=== PATIENT | male | born 1965 | race Caucasian/White ===

== ENCOUNTER → 2020-03-01 15:37 | Outpatient (BNVA) | payer OTHER, SELFPAY | PROVIDERS: PCP Physician Assistant; Visit Provider Internal Medicine Cardiovascular Disease | DX: I42.1 Obstructive hypertrophic cardiomyopathy (principal); Z98.61 Coronary angioplasty status | CPT/HCPCS: 93005; 99212 ==

== ENCOUNTER → 2020-08-04 15:00 | Outpatient (BNVA) | payer OTHER, SELFPAY | PROVIDERS: PCP Physician Assistant; Referring Provider Physician Assistant; Visit Provider Internal Medicine Cardiovascular Disease | DX: I42.1 Obstructive hypertrophic cardiomyopathy (principal); E78.5 Hyperlipidemia, unspecified; Z98.61 Coronary angioplasty status | CPT/HCPCS: 99212 ==

== ENCOUNTER 2020-08-09 14:56 | Outpatient (REF) | payer OTHER, SELFPAY ==
--- NOTE | ~2020-08-09 | XR_ITS ---
EXAMINATION: XR TIBIA AND FIBULA, LEFT CLINICAL INFORMATION: Injury. COMPARISON: None TECHNIQUE: AP and lateral views of the left tibia and fibula were obtained. FINDINGS: The bones and soft tissues are normal. No fracture. No osseous lesions. XR/XR tibia fibula LT 2V IMPRESSION: Normal left tibia and fibula.
--- NOTE | ~2020-08-09 | XR_ITS ---
EXAMINATION: XR ANKLE, LEFT CLINICAL INFORMATION: Injury. COMPARISON: None TECHNIQUE: AP, lateral, and mortise views of the left ankle. FINDINGS: The bones and soft tissues are normal. No fracture. Alignment is anatomic. Joint spaces are maintained. No joint effusion. XR/XR ankle LT min 3V IMPRESSION: Normal left ankle.
== END 2020-08-09 14:57 | disposition home or self-care (01) ==
LOC: HO.HMGCX 14:56
PROVIDERS: PCP Physician Assistant; Visit Provider Nurse Practitioner Family
DX: S89.92XA Unspecified injury of left lower leg, initial encounter (principal)
CPT/HCPCS: 73590; 73610

== ENCOUNTER → 2021-02-02 14:00 | Outpatient (BNVA) | payer OTHER, SELFPAY | PROVIDERS: PCP Physician Assistant; Referring Provider Physician Assistant; Visit Provider Internal Medicine Cardiovascular Disease | DX: I42.1 Obstructive hypertrophic cardiomyopathy (principal); E78.5 Hyperlipidemia, unspecified; Z98.61 Coronary angioplasty status | CPT/HCPCS: 99212 ==

== ENCOUNTER 2021-03-10 15:48 | Outpatient (REF) | payer OTHER, SELFPAY ==
[2021-03-10 16:35] LABS: Hematocrit 41.9 % (42.0-52.0); Hemoglobin 14.1 g/dl (14.0-18.0); Mean Corpuscular HGB Conc 33.7 g/dl (31.0-36.0); Mean Corpuscular Hemoglobin 31.1 pg (27.0-33.0); Mean Corpuscular Volume 92.3 fL (80.0-98.0); Mean Platelet Volume 9.3 fL (9.4-12.4); Platelet Count 156 X10*3/uL (160-400); Red Blood Count 4.54 X10*6/uL (4.60-5.80); Red Cell Distribution Width 12.7 % (11.0-16.0); White Blood Count 6.2 X10*3/uL (4.8-10.8)
[2021-03-10 16:45] LABS: Estimated Average Glucose 88 mg/dL; Hemoglobin A1c % 4.7 %
[2021-03-10 16:50] LABS: Creatinine Urine 67.23 mg/dL; Microalbumin Urine < 5.0 mg/L
[2021-03-10 17:01] LABS: Alanine Aminotransferase 25 U/L (0-40); Albumin Level 4.6 g/dL (3.5-5.0); Alkaline Phosphatase 50 U/L (39-117); Anion Gap 11 (12-20); Aspartate Amino Transferase 26 U/L (5-37); Bilirubin Total 0.6 mg/dL (0.0-1.0); Blood Urea Nitrogen 21 mg/dL (9-16); Calcium 9.9 mg/dL (8.4-10.2); Carbon Dioxide 22 mmol/L (22-29); Chloride 112 mmol/L (96-108); Estimated Glomerular Filt Rate 53; Glucose Fasting 83 mg/dL (60-99); Potassium 4.2 mmol/L (3.3-5.1); Sodium 141 mmol/L (135-145)
== END 2021-03-10 15:49 | disposition home or self-care (01) ==
LOC: HO.LAB 15:48
PROVIDERS: Absent Provider Physician Assistant; PCP Physician Assistant; Visit Provider Internal Medicine Cardiovascular Disease
DX: I25.810 Atherosclerosis of coronary artery bypass graft(s) without angina pectoris (principal); N18.30 Chronic kidney disease, stage 3 unspecified
CPT/HCPCS: 36415; 80053; 82043; 83036; 85027

== ENCOUNTER 2021-04-17 15:18 | Emergency (ER) | payer OTHER, SELFPAY ==
[2021-04-17 15:56] VITALS: BP 143/80; PULSE 67; RESP 18; TEMP 36.6; O2SAT 95; BMI 32.4
--- NOTE | 2021-04-17 16:04 | ED.EPISTAXIS ---
History of Present Illness General Chief Complaint: Epistaxis Stated Complaint: nose bleed Time Seen by Provider: 04/17/21 16:04 Source: patient Mode of arrival: ambulatory Limitations: no limitations History of Present Illness HPI Narrative: Patent little congested for last few days on Plavix blew his nose started bleeding from right nostril with blood clot no prior history of epistaxis no frequent bruising or bleeding from either place had slight bright red blood in the stool with history of hemorrhoid no dizziness no chest pain or palpitation Related Data Home Medications Medication Instructions Recorded Confirmed buspirone 15 mg tablet 15 mg PO BEDTIME 03/01/20 03/10/21 lamotrigine 200 mg tablet 400 mg PO BEDTIME 03/01/20 03/10/21 quetiapine 300 mg tablet,extended 600 mg PO BEDTIME 03/01/20 03/10/21 release 24 hr topiramate 100 mg tablet 100 mg PO BEDTIME 03/01/20 03/10/21 aspirin 81 mg tablet,delayed 81 mg PO DAILY 03/02/20 03/10/21 release (Adult Aspirin Regimen) quetiapine 150 mg tablet,extended 150 mg PO BEDTIME 02/02/21 03/10/21 release 24 hr (Seroquel XR) benztropine 1 mg tablet 2 mg PO BEDTIME 04/17/21 Previous Rx's Medication Instructions Recorded clopidogrel 75 mg tablet 75 mg PO DAILY 90 Days #90 tab 07/20/20 levothyroxine 25 mcg tablet 25 mcg PO DAILY #30 tab 08/28/20 fexofenadine 180 mg tablet 180 mg PO DAILY 90 Days #90 tab 11/28/20 metoprolol succinate 25 mg 25 mg PO DAILY #90 tab 12/10/20 tablet,extended release 24 hr triamcinolone acetonide 0.1 % 1 appl TOPICAL DAILY 30 Days #30 g 12/24/20 topical cream albuterol sulfate 90 mcg/actuation 1 puff INHALATION Q6-8H 30 Days 01/06/21 aerosol inhaler #8.5 g polyethylene glycol 3350 17 gram 17 g PO DAILY PRN #30 packet 01/06/21 oral powder packet fenofibrate nanocrystallized 48 mg 48 mg PO DAILY #30 tab 02/07/21 tablet terazosin 2 mg capsule 2 mg PO DAILY #30 cap 02/07/21 meclizine 25 mg tablet 25 mg PO DAILY PRN #90 tab 02/10/21 benzoyl peroxide 10 % topical 1 appl TOPICAL DAILY 30 Days #237 g 03/10/21 cleanser clindamycin phosphate 1 % topical 1 appl TOPICAL DAILY 30 Days #75 ml 03/22/21 gel, once daily atorvastatin 80 mg tablet 80 mg PO DAILY #90 tab 03/29/21 Allergies Allergy/AdvReac Type Severity Reaction Status Date / Time neff [CHERRIES] Allergy Unknown digestive Verified 04/17/21 15:56 issues (only with fresh) gluten [GLUTEN] Allergy Unknown digestive Verified 04/17/21 15:56 issues ibuprofen [From MOTRIN] Allergy Unknown UNKNOWN Verified 04/17/21 15:56 mayonnaise [MAYONNAISE] Allergy Unknown digestive Verified 04/17/21 15:56 issues Penicillins [PENICILLINS] Allergy Unknown UNKNOWN Verified 04/17/21 15:56 rosuvastatin [Crestor] Allergy Unknown unknown Verified 04/17/21 15:56 soy [SOY] Allergy Unknown digestive Verified 04/17/21 15:56 issue Sulfa (Sulfonamide Allergy Unknown unknown Verified 04/17/21 15:56 Antibiotics) [SULFA (SULFONAMIDE ANTIBIOTICS)] wheat [WHEAT] Allergy Unknown digestive Verified 04/17/21 15:56 issues lamotrigine [LAMOTRIGINE] AdvReac Intermediate HEADACHES Verified 04/17/21 15:56 oxycodone [OXYCODONE] AdvReac Intermediate racing Verified 04/17/21 15:56 thoughts APPLE JUICE Allergy Unknown digestive Uncoded 03/10/21 15:15 issues fresh sridevi cherries Allergy Unknown unknown Uncoded 03/10/21 15:15 Review of Systems Review of Systems: Yes all other systems are reviewed and are negative PMFSH Past Medical History Medical History Chronic kidney disease Ischemic colitis Surgical History History of appendectomy History of cholecystectomy History of heart artery stent History of tonsillectomy Family History Family History Father Liver cancer Monoallelic mutation of MET gene Mother Arthritis Cancer Pacemaker Social History Social History Housing: House Patient Tobacco Use Status: Current everyday Tobacco user Cigarette Packs Per Day: 1 Cigarettes Per Day: 20 Years Smoked: 12 years Use of substances other than those prescribed or required for medical reasons: No Substance Use Type: Marijuana Substance Use Type Other:: medical marijuana Advance Directives: No Advance Directives Information Provided: No Physical Exam Vital Signs: Vital Signs: Last Vital Signs Temp 97.9 F 04/17/21 15:56 Pulse 66 04/17/21 16:40 Resp 16 04/17/21 16:40 BP 142/93 H 04/17/21 16:40 Pulse Ox 96 04/17/21 16:40 BMI result Body Mass Index 32.4 Const: General: comfortable and no acute distress Orientation/consciousness: patient oriented x3 HENMT: Head: Yes normal to inspection General nose exam: Normal nares present (Active anterior nasal bleeding from right side) Mouth: Normal oral and palatal mucosa present Throat: Yes posterior oropharynx normal Resp: Effort & Inspection: normal respiratory effort Auscultation: clear to auscultation bilaterally Cardio: Rate: regular rate Rhythm: regular rhythm Heart sounds: S1 normal heart sound present and S2 normal heart sound present GI: Inspection: Yes normal to inspection Palpation (GI): Soft to palpation and nontender Neuro: General: patient oriented x3 Procedures Epistaxis Control Time Out Performed: Yes Nostril: Yes right Nose prepped with: Yes cocaine 4% Direct inspection: Yes anterior source identified Direct inspection method: Yes otoscope Clots removed by: Yes blowing nose Epistaxis treatment: Yes silver nitrate cautery Results of treatment: Yes bleeding controlled Complications: Yes none Discharge Plan Discharge Clinical Impression: Acute anterior epistaxis Patient Disposition: Home, Self-Care Instructions: Nosebleed (ED) Additional Instructions: Local care as advised Refer to the ER if recurrence of increased bleeding Prescriptions: No Action clopidogrel 75 mg tablet 75 mg PO DAILY 90 Days Qty: 90 1RF levothyroxine 25 mcg tablet 25 mcg PO DAILY Qty: 30 3RF fexofenadine 180 mg tablet 180 mg PO DAILY 90 Days Qty: 90 2RF metoprolol succinate 25 mg tablet extended release 24 hr 25 mg PO DAILY Qty: 90 3RF triamcinolone acetonide 0.1 % cream 1 appl topical DAILY 30 Days Qty: 30 0RF albuterol sulfate 90 mcg/actuation HFA aerosol inhaler 1 puff inhalation Q6-8H 30 Days Qty: 8.5 3RF polyethylene glycol 3350 17 gram powder in packet 17 g PO DAILY PRN (Reason: for constipation) Qty: 30 2RF fenofibrate nanocrystallized 48 mg tablet 48 mg PO DAILY Qty: 30 3RF terazosin 2 mg capsule 2 mg PO DAILY Qty: 30 3RF meclizine 25 mg tablet 25 mg PO DAILY PRN (Reason: for dizziness) Qty: 90 3RF clindamycin phosphate 1 % gel, once daily 1 appl topical DAILY 30 Days Qty: 75 0RF atorvastatin 80 mg tablet 80 mg PO DAILY Qty: 90 2RF benztropine 1 mg tablet 2 mg PO BEDTIME 0RF benzoyl peroxide 10 % cleanser 1 appl topical DAILY 30 Days Qty: 237 1RF quetiapine 300 mg tablet extended release 24 hr 600 mg PO BEDTIME 0RF topiramate 100 mg tablet 100 mg PO BEDTIME 0RF lamotrigine 200 mg tablet 400 mg PO BEDTIME 0RF buspirone 15 mg tablet 15 mg PO BEDTIME 0RF aspirin [Adult Aspirin Regimen] 81 mg tablet,delayed release (DR/EC) 81 mg PO DAILY 0RF quetiapine [Seroquel XR] 150 mg tablet extended release 24 hr 150 mg PO BEDTIME 0RF Interventions: ED Discharge Assessment Last Done: 04/17/21 17:57 Discharge Date/Time: 04/17/21 17:57
[2021-04-17] MEDS: Cocaine HCl 4 % 4 ML SOLUTION 2 ML TOPICAL ×2 (16:20→17:07)
[2021-04-17 16:40] VITALS: BP 142/93; PULSE 66; RESP 16; O2SAT 96
[2021-04-17] MEDS: Silver Nitrate Applicator STICK..EA. 1 APPL TOPICAL (17:05)
== END 2021-04-17 17:57 | disposition home or self-care (01) ==
PROVIDERS: Emergency Provider Internal Medicine; PCP Physician Assistant
DX: R04.0 Epistaxis (principal); F17.210 Nicotine dependence, cigarettes, uncomplicated; Z71.6 Tobacco abuse counseling; Z79.899 Other long term (current) drug therapy
CPT/HCPCS: 30901; 99284; C9046

== ENCOUNTER 2021-04-25 21:32 | Inpatient (IN) | payer OTHER, SELFPAY ==
--- NOTE | ~2021-04-25 | XR_ITS ---
EXAMINATION: XR CHEST CLINICAL INFORMATION: Chest pain COMPARISON: Chest and RIBS 08/05/2019 and chest radiograph 03/18/2018 TECHNIQUE: Frontal view of the chest was obtained. FINDINGS: No significant abnormality is noted involving the heart, lungs, mediastinum, bony thorax or soft tissues. XR/XR chest 1V IMPRESSION: Unremarkable examination.
[2021-04-25 21:47] VITALS: BP 118/66; PULSE 71; RESP 18; TEMP 36.6; O2SAT 97; BMI 28.4
--- NOTE | 2021-04-25 21:55 | ECG_ITS ---
Test Reason : CHEST PAIN Blood Pressure : / mmHG Vent. Rate : 073 BPM Atrial Rate : 073 BPM P-R Int : 206 ms QRS Dur : 112 ms QT Int : 426 ms P-R-T Axes : 022 042 158 degrees QTc Int : 469 ms Normal sinus rhythm ST & T wave abnormality, consider inferior ischemia ST & T wave abnormality, consider anterolateral ischemia Prolonged QT Abnormal ECG When compared with ECG of 04-JUN-2018 08:09, No significant changes seen Referred By: Sruthi Flores Electronically Signed By:DEANDRA NAIK MD
--- NOTE | 2021-04-25 22:14 | ED_ITS ---
HPI - Chest Pain General Chief Complaint: Chest Pain Stated Complaint: CP,L ARM PAIN X'S 2 HOURS Time Seen by Provider: 04/25/21 21:55 Source: patient Mode of arrival: EMS History of Present Illness HPI narrative: 55-year-old male with history CAD presents with onset pinching sharp chest pain that began approximately 18 30 that he describes as 10/10 with radiation into the left arm, he states he took aspirin that time and denies any associated shortness of breath, dizziness, headache, nausea but states he was diaphoretic. He states that the pain has now settled to a ?dull ache? and that his left arm is feeling numb. The symptoms started while patient was at rest and patient still rates his pain as an 8/10. Related Data Home Medications Medication Instructions Recorded Confirmed buspirone 15 mg tablet 15 mg PO BEDTIME 03/01/20 03/10/21 lamotrigine 200 mg tablet 400 mg PO BEDTIME 03/01/20 03/10/21 quetiapine 300 mg tablet,extended 600 mg PO BEDTIME 03/01/20 03/10/21 release 24 hr topiramate 100 mg tablet 100 mg PO BEDTIME 03/01/20 03/10/21 aspirin 81 mg tablet,delayed 81 mg PO DAILY 03/02/20 03/10/21 release (Adult Aspirin Regimen) quetiapine 150 mg tablet,extended 150 mg PO BEDTIME 02/02/21 03/10/21 release 24 hr (Seroquel XR) benztropine 1 mg tablet 2 mg PO BEDTIME 04/17/21 Previous Rx's Medication Instructions Recorded fexofenadine 180 mg tablet 180 mg PO DAILY 90 Days #90 tab 11/28/20 metoprolol succinate 25 mg 25 mg PO DAILY #90 tab 12/10/20 tablet,extended release 24 hr triamcinolone acetonide 0.1 % 1 appl TOPICAL DAILY 30 Days #30 g 12/24/20 topical cream albuterol sulfate 90 mcg/actuation 1 puff INHALATION Q6-8H 30 Days 01/06/21 aerosol inhaler #8.5 g polyethylene glycol 3350 17 gram 17 g PO DAILY PRN #30 packet 01/06/21 oral powder packet meclizine 25 mg tablet 25 mg PO DAILY PRN #90 tab 02/10/21 benzoyl peroxide 10 % topical 1 appl TOPICAL DAILY 30 Days #237 g 03/10/21 cleanser clindamycin phosphate 1 % topical 1 appl TOPICAL DAILY 30 Days #75 ml 03/22/21 gel, once daily atorvastatin 80 mg tablet 80 mg PO DAILY #90 tab 03/29/21 clopidogrel 75 mg tablet 75 mg PO DAILY 90 Days #90 tab 04/18/21 fenofibrate nanocrystallized 48 mg 48 mg PO DAILY #30 tab 04/25/21 tablet levothyroxine 25 mcg tablet 25 mcg PO DAILY #30 tab 04/25/21 terazosin 2 mg capsule 2 mg PO DAILY #30 cap 04/25/21 Allergies Allergy/AdvReac Type Severity Reaction Status Date / Time neff [CHERRIES] Allergy Unknown digestive Verified 04/17/21 15:56 issues (only with fresh) gluten [GLUTEN] Allergy Unknown digestive Verified 04/17/21 15:56 issues ibuprofen [From MOTRIN] Allergy Unknown UNKNOWN Verified 04/17/21 15:56 mayonnaise [MAYONNAISE] Allergy Unknown digestive Verified 04/17/21 15:56 issues Penicillins [PENICILLINS] Allergy Unknown UNKNOWN Verified 04/17/21 15:56 rosuvastatin [Crestor] Allergy Unknown unknown Verified 04/17/21 15:56 soy [SOY] Allergy Unknown digestive Verified 04/17/21 15:56 issue Sulfa (Sulfonamide Allergy Unknown unknown Verified 04/17/21 15:56 Antibiotics) [SULFA (SULFONAMIDE ANTIBIOTICS)] wheat [WHEAT] Allergy Unknown digestive Verified 04/17/21 15:56 issues lamotrigine [LAMOTRIGINE] AdvReac Intermediate HEADACHES Verified 04/17/21 15:56 oxycodone [OXYCODONE] AdvReac Intermediate racing Verified 04/17/21 15:56 thoughts APPLE JUICE Allergy Unknown digestive Uncoded 03/10/21 15:15 issues fresh sridevi cherries Allergy Unknown unknown Uncoded 03/10/21 15:15 Review of Systems Review of Systems: Pertinent positives and negatives as stated in HPI 10 point review of systems is otherwise negative. [facility] Past Medical History Source: nursing notes reviewed Medical History Chronic kidney disease Ischemic colitis Surgical History History of appendectomy History of cholecystectomy History of heart artery stent History of tonsillectomy Family History Family History Father Liver cancer Monoallelic mutation of MET gene Mother Arthritis Cancer Pacemaker Social History Social History Housing: House Patient Tobacco Use Status: Current everyday Tobacco user Cigarette Packs Per Day: 1 Cigarettes Per Day: 20 Years Smoked: 12 years Substance Use Type: Marijuana Advance Directives: No Advance Directives Information Provided: No Physical Exam Vital Signs: Vital Signs: Last Vital Signs Temp 97.9 F 04/25/21 21:47 Pulse 18 L 04/25/21 22:29 Resp 18 04/25/21 21:47 BP 120/68 04/25/21 22:29 Pulse Ox 97 04/25/21 21:47 BMI result Body Mass Index 28.4 VITAL SIGNS: Reviewed. GENERAL: Well developed, well nourished, in no acute distress. HEAD: Normocephalic/atraumatic EYES: PERRLA, EOMI OROPHARYNX: no oral lesions noted, posterior pharynx clear LUNGS: Normal breath sounds. No adventitious sounds or accessory muscle use. SpO2<97> CARDIOVASCULAR: Regular rate and rhythm without noted murmurs, no JVD or lower extremity edema, symmetrical pulses in upper and lower extremity ABDOMEN: Soft, non-tender, non-distended with bowel sounds. MUSCULOSKELETAL: No tenderness, deformities, or effusions noted on gross inspection. EXTREMITIES: No cyanosis, clubbing or edema. SKIN: Inspection of the skin reveals no rashes NEUROLOGIC: Alert and oriented x 4. Strength and sensation to light touch were grossly intact x 4. Course Course Course Narrative: 55-year-old male with history and clinical presentation of stent placement on D AP now presenting with left-sided chest pain concerning for ACS, but on quick review of EKGs there are no acute changes as the T-wave inversions noted in the lateral leads appear to be chronic. Will give patient nitro and otherwise continue with cardiac workup. Review of all investigations and re-evaluation after patient given sublingual nitro consistent with ACS/NSTEMI and patient reports improvement after the sublingual nitro and was noted to be resting comfortably on the gurney. He is otherwise hemodynamically stable and will be started on heparin, discussed this case with the inpatient hospitalist who accepts admission and callback from Cardiology pending MDM - Chest Pain Lab Data Result diagrams: 04/25/21 22:42 04/25/21 22:42 Labs: Lab Results 04/25/21 04/25/21 04/25/21 Range/Units 22:42 22:42 22:42 WBC 8.0 (4.8-10.8) X10*3/uL RBC 3.98 L (4.60-5.80) X10*6/uL Hgb 12.4 L (14.0-18.0) g/dl Hct 36.3 L (42.0-52.0) % MCV 91.2 (80.0-98.0) fL MCH 31.2 (27.0-33.0) pg MCHC 34.2 (31.0-36.0) g/dl RDW 12.4 (11.0-16.0) % Plt Count 173 (160-400) X10*3/uL MPV 8.9 L (9.4-12.4) fL Immature Gran % (Auto) 0.5 H (0.0-0.4) % Neut % (Auto) 52.4 (45-73) % Lymph % (Auto) 27.9 (20-40) % [place] % (Auto) 10.2 (2-11) % Eos % (Auto) 8.5 H (0-4) % Baso % (Auto) 0.5 (0-2) % Lymph # (Auto) 2.2 (1.2-4.9) X10*3/uL [place] # (Auto) 0.8 (0.1-1.2) X10*3/uL Eos # (Auto) 0.7 H (0.0-0.4) X10*3/uL Baso # (Auto) 0.0 (0.0-0.2) X10*3/uL Abs Immat Gran (auto) 0.04 H (0.00-0.03) X10*3/uL Absolute Neuts (auto) 4.2 (2.0-8.3) x10*3/uL Absolute Nucleated RBC 0.000 (0.0-0.012) X10*3/uL Nucleated RBC % (auto) 0.0 (0.0-0.2) /100WBC PT 11.2 (9.9-13.0) SEC INR 1.0 (0.9-1.1) APTT 34.2 (24.1-38.0) SEC Sodium 143 (135-145) mmol/L Potassium 3.9 (3.3-5.1) mmol/L Chloride 112 H (96-108) mmol/L Carbon Dioxide 23 (22-29) mmol/L Anion Gap 12 (12-20) BUN 22 H (9-16) mg/dL Creatinine 1.32 (0.5-1.4) mg/dL Estim Creat Clear Calc 62.1 Estimated GFR 56 Random Glucose 102 (60-115) mg/dL Calcium 9.3 D (8.4-10.2) mg/dL Total Bilirubin 0.2 (0.0-1.0) mg/dL AST 24 (5-37) U/L ALT 21 (0-40) U/L Alkaline Phosphatase 47 (39-117) U/L Troponin I High Sens (<3.5-35.0) ng/L Total Protein 6.2 L (6.5-8.0) g/dL Albumin 4.1 (3.5-5.0) g/dL COVID-19 (NICOLE) (Negative) COVID-19 Clin Com 04/25/21 04/25/21 Range/Units 22:42 22:42 WBC (4.8-10.8) X10*3/uL RBC (4.60-5.80) X10*6/uL Hgb (14.0-18.0) g/dl Hct (42.0-52.0) % MCV (80.0-98.0) fL MCH (27.0-33.0) pg MCHC (31.0-36.0) g/dl RDW (11.0-16.0) % Plt Count (160-400) X10*3/uL MPV (9.4-12.4) fL Immature Gran % (Auto) (0.0-0.4) % Neut % (Auto) (45-73) % Lymph % (Auto) (20-40) % [place] % (Auto) (2-11) % Eos % (Auto) (0-4) % Baso % (Auto) (0-2) % Lymph # (Auto) (1.2-4.9) X10*3/uL [place] # (Auto) (0.1-1.2) X10*3/uL Eos # (Auto) (0.0-0.4) X10*3/uL Baso # (Auto) (0.0-0.2) X10*3/uL Abs Immat Gran (auto) (0.00-0.03) X10*3/uL Absolute Neuts (auto) (2.0-8.3) x10*3/uL Absolute Nucleated RBC (0.0-0.012) X10*3/uL Nucleated RBC % (auto) (0.0-0.2) /100WBC PT (9.9-13.0) SEC INR (0.9-1.1) APTT (24.1-38.0) SEC Sodium (135-145) mmol/L Potassium (3.3-5.1) mmol/L Chloride (96-108) mmol/L Carbon Dioxide (22-29) mmol/L Anion Gap (12-20) BUN (9-16) mg/dL Creatinine (0.5-1.4) mg/dL Estim Creat Clear Calc Estimated GFR Random Glucose (60-115) mg/dL Calcium (8.4-10.2) mg/dL Total Bilirubin (0.0-1.0) mg/dL AST (5-37) U/L ALT (0-40) U/L Alkaline Phosphatase (39-117) U/L Troponin I High Sens 91.5 H (<3.5-35.0) ng/L Total Protein (6.5-8.0) g/dL Albumin (3.5-5.0) g/dL COVID-19 ([facility]ICOLE) Negative (Negative) COVID-19 Clin Com See Note Critical Care Time Critical Care Time Critical Care Time: Yes Total Critical Care Time: 30 Attestation: I personally attest to this time spent taking care of the patient. Discharge Plan Discharge Clinical Impression: Non-ST elevation DE (NSTEMI) Patient Disposition: Admitted As Inpatient Prescriptions: No Action fexofenadine 180 mg tablet 180 mg PO DAILY 90 Days Qty: 90 2RF metoprolol succinate 25 mg tablet extended release 24 hr 25 mg PO DAILY Qty: 90 3RF triamcinolone acetonide 0.1 % cream 1 appl topical DAILY 30 Days Qty: 30 0RF albuterol sulfate 90 mcg/actuation HFA aerosol inhaler 1 puff inhalation Q6-8H 30 Days Qty: 8.5 3RF polyethylene glycol 3350 17 gram powder in packet 17 g PO DAILY PRN (Reason: for constipation) Qty: 30 2RF meclizine 25 mg tablet 25 mg PO DAILY PRN (Reason: for dizziness) Qty: 90 3RF clindamycin phosphate 1 % gel, once daily 1 appl topical DAILY 30 Days Qty: 75 0RF atorvastatin 80 mg tablet 80 mg PO DAILY Qty: 90 2RF clopidogrel 75 mg tablet 75 mg PO DAILY 90 Days Qty: 90 1RF terazosin 2 mg capsule 2 mg PO DAILY Qty: 30 3RF fenofibrate nanocrystallized 48 mg tablet 48 mg PO DAILY Qty: 30 3RF levothyroxine 25 mcg tablet 25 mcg PO DAILY Qty: 30 3RF benztropine 1 mg tablet 2 mg PO BEDTIME 0RF benzoyl peroxide 10 % cleanser 1 appl topical DAILY 30 Days Qty: 237 1RF quetiapine 300 mg tablet extended release 24 hr 600 mg PO BEDTIME 0RF topiramate 100 mg tablet 100 mg PO BEDTIME 0RF lamotrigine 200 mg tablet 400 mg PO BEDTIME 0RF buspirone 15 mg tablet 15 mg PO BEDTIME 0RF aspirin [Adult Aspirin Regimen] 81 mg tablet,delayed release (DR/EC) 81 mg PO DAILY 0RF quetiapine [Seroquel XR] 150 mg tablet extended release 24 hr 150 mg PO BEDTIME 0RF
[2021-04-25 22:29] VITALS: BP 120/68; PULSE 18
[2021-04-25] MEDS: Nitroglycerin 0.4 MG TAB.SUBL SUBLINGUAL (22:29)
[2021-04-25 22:48] LABS: MANUAL DIFF FLAG NO
[2021-04-25 22:49] LABS: Basophils Percent Auto 0.5 % (0-2); Eosinophils Absolute Auto 0.7 X10*3/uL (0.0-0.4); Eosinophils Percent Auto 8.5 % (0-4); Hematocrit 36.3 % (42.0-52.0); Hemoglobin 12.4 g/dl (14.0-18.0); Imm Gran Abs Auto 0.04 X10*3/uL (0.00-0.03); Imm Gran Pct Auto 0.5 % (0.0-0.4); Lymphocytes Absolute Auto 2.2 X10*3/uL (1.2-4.9); Lymphocytes Percent Auto 27.9 % (20-40); Mean Corpuscular HGB Conc 34.2 g/dl (31.0-36.0); Mean Corpuscular Hemoglobin 31.2 pg (27.0-33.0); Mean Corpuscular Volume 91.2 fL (80.0-98.0); Mean Platelet Volume 8.9 fL (9.4-12.4); Monocytes Absolute Auto 0.8 X10*3/uL (0.1-1.2); Monocytes Percent Auto 10.2 % (2-11); Neutrophils Absolute Auto 4.2 x10*3/uL (2.0-8.3); Neutrophils Percent Auto 52.4 % (45-73); Platelet Count 173 X10*3/uL (160-400); Red Blood Count 3.98 X10*6/uL (4.60-5.80); Red Cell Distribution Width 12.4 % (11.0-16.0)
[2021-04-25 23:01] LABS: Prothrombin Time 11.2 SEC (9.9-13.0)
[2021-04-25 23:04] LABS: Partial Thromboplastin Time 34.2 SEC (24.1-38.0)
[2021-04-25 23:10] LABS: Alanine Aminotransferase 21 U/L (0-40); Albumin Level 4.1 g/dL (3.5-5.0); Alkaline Phosphatase 47 U/L (39-117); Anion Gap 12 (12-20); Aspartate Amino Transferase 24 U/L (5-37); Bilirubin Total 0.2 mg/dL (0.0-1.0); Blood Urea Nitrogen 22 mg/dL (9-16); Calcium 9.3 mg/dL (8.4-10.2); Carbon Dioxide 23 mmol/L (22-29); Chloride 112 mmol/L (96-108); Creatinine Clr Calc Pharmacy 62.1; Estimated Glomerular Filt Rate 56; Glucose Random 102 mg/dL (60-115); Potassium 3.9 mmol/L (3.3-5.1); Sodium 143 mmol/L (135-145); Total Protein 6.2 g/dL (6.5-8.0)
[2021-04-25 23:12] LABS: COVID-19 Test Negative (Negative); IDNOW Serial# 55D5AD1C
[2021-04-25 23:16] LABS: Troponin-I High Sensitivity 91.5 ng/L (<3.5-35.0)
--- NOTE | 2021-04-25 23:37 | ECG_ITS ---
Test Reason : CHEST PAIN Blood Pressure : / mmHG Vent. Rate : 065 BPM Atrial Rate : 065 BPM P-R Int : 212 ms QRS Dur : 114 ms QT Int : 456 ms P-R-T Axes : 011 035 156 degrees QTc Int : 474 ms Sinus rhythm with 1st degree A-V block ST & T wave abnormality, consider anterolateral ischemia Prolonged QT Abnormal ECG When compared with ECG of 25-APR-2021 21:59, No significant change was found Referred By: Sruthi Flores Electronically Signed By:DEANDRA NAIK MD
--- NOTE | 2021-04-25 23:49 | PC.NURSE ---
HOSPITALIST IN ROOM FOR EVAL.
--- NOTE | 2021-04-25 23:55 | P.HPHOSP_ITS ---
History of Present Illness Date of Service: 04/25/21 Chief Complaint: chest pain 55-year-old male with past medical history of coronary artery disease status post stent to the LAD after undergoing cardiac catheterization for an abnormal stress test performed for exertional chest tightness who presents to the [facility] with complaints of chest pain. Patient describes the chest pain as initially stabbing then becoming pressure-like and punching sensation in his chest, radiating to the left arm. Patient reports that the pain is constant, 8/10, associated with mild exertional shortness of breath, no cough, no headache, no change in vision. no fever chills, no abdominal pain no nausea or vomiting, no diarrhea constipation, no urinary symptoms and no lower extremity edema. Patient reports compliance with all his medications. On arrival to the ED patient hemodynamically stable with no significant abn ormal vitals Labs are significant for WBC count of 7.1, hemoglobin of 12.6 initial troponin of 91.5, EKG Showed normal sinus rhythm with T-wave inversions in the lateral leads V4 V5 and V6 as well as lead 1 to and aVL which were present on previous EKG done in May 2018. patient started on heparin drip and will be admitted for further management Review of Systems Review of Systems: Yes all other systems are reviewed and are negative [facility] Medical History (Updated 04/26/21 @ 06:32 by Acosta Paredes MD) Bipolar disorder CAD (coronary artery disease) Chronic kidney disease Hypothyroidism Ischemic colitis Non-ST elevation MA (NSTEMI) Presence of stent in LAD coronary artery Schizoaffective disorder Family History Father Liver cancer Monoallelic mutation of MET gene Mother Arthritis Cancer Pacemaker Surgical History History of appendectomy History of cholecystectomy History of heart artery stent History of tonsillectomy Social History Housing: House Patient Tobacco Use Status: Current everyday Tobacco user Cigarette Packs Per Day: 1 Cigarettes Per Day: 20 Years Smoked: 12 years Substance Use Type: Marijuana Advance Directives: No Advance Directives Information Provided: No Meds Allergies Allergy/AdvReac Type Severity Reaction Status Date / Time neff [CHERRIES] Allergy Unknown digestive Verified 04/17/21 15:56 issues (only with fresh) gluten [GLUTEN] Allergy Unknown digestive Verified 04/17/21 15:56 issues ibuprofen [From MOTRIN] Allergy Unknown UNKNOWN Verified 04/17/21 15:56 mayonnaise [MAYONNAISE] Allergy Unknown digestive Verified 04/17/21 15:56 issues Penicillins [PENICILLINS] Allergy Unknown UNKNOWN Verified 04/17/21 15:56 rosuvastatin [Crestor] Allergy Unknown unknown Verified 04/17/21 15:56 soy [SOY] Allergy Unknown digestive Verified 04/17/21 15:56 issue Sulfa (Sulfonamide Allergy Unknown unknown Verified 04/17/21 15:56 Antibiotics) [SULFA (SULFONAMIDE ANTIBIOTICS)] wheat [WHEAT] Allergy Unknown digestive Verified 04/17/21 15:56 issues lamotrigine [LAMOTRIGINE] AdvReac Intermediate HEADACHES Verified 04/17/21 15:56 oxycodone [OXYCODONE] AdvReac Intermediate racing Verified 04/17/21 15:56 thoughts APPLE JUICE Allergy Unknown digestive Uncoded 03/10/21 15:15 issues fresh sridevi cherries Allergy Unknown unknown Uncoded 03/10/21 15:15 Home Medications Medication Instructions Recorded Confirmed Last Taken Type buspirone 15 mg tablet 15 mg PO BEDTIME 03/01/20 03/10/21 Unknown History lamotrigine 200 mg tablet 400 mg PO BEDTIME 03/01/20 03/10/21 Unknown History quetiapine 300 mg tablet,extended 600 mg PO BEDTIME 03/01/20 03/10/21 Unknown History release 24 hr topiramate 100 mg tablet 100 mg PO BEDTIME 03/01/20 03/10/21 Unknown History aspirin 81 mg tablet,delayed 81 mg PO DAILY 03/02/20 03/10/21 Unknown History release (Adult Aspirin Regimen) quetiapine 150 mg tablet,extended 150 mg PO BEDTIME 02/02/21 03/10/21 Unknown History release 24 hr (Seroquel XR) benztropine 1 mg tablet 2 mg PO BEDTIME 04/17/21 Unknown History Physical Exam Vital Signs and Narrative: Vital Signs: Last Vital Signs Temp 97.9 F 04/25/21 21:47 Pulse 18 L 04/25/21 22:29 Resp 18 04/25/21 21:47 BP 120/68 04/25/21 22:29 Pulse Ox 97 04/25/21 21:47 BMI result Body Mass Index 28.4 Const: General: cooperative and no acute distress Orientation/consciousness: patient oriented x3 Eyes: General: appearance normal, both eyes and all related structures Pupils: Equal, round and reactive pupils present Resp: Effort & Inspection: normal respiratory effort Auscultation: clear to auscultation bilaterally Cardio: Other: non-reproducible chest pain Rate: regular rate Rhythm: regular rhythm GI: Palpation (GI): Soft to palpation Auscultation: normal bowel sounds Skin: General skin exam: no rashes or lesions noted Neuro: General: patient oriented x3 Cranial nerves: Yes Equal, round and reactive pupils present Cognition (Neuro): normal cognition Extrem: General: Yes normal to inspection and Yes no pedal edema Results Labs CBC and Chem 7: 04/26/21 05:56 04/25/21 22:42 Labs: Laboratory Results - last 24 hr 04/25/21 04/25/21 04/25/21 22:42 22:42 22:42 MCV 91.2 MCH 31.2 MCHC 34.2 RDW 12.4 Plt Count 173 MPV 8.9 L Immature Gran % (Auto) 0.5 H Neut % (Auto) 52.4 Lymph % (Auto) 27.9 [place] % (Auto) 10.2 Eos % (Auto) 8.5 H Baso % (Auto) 0.5 Lymph # (Auto) 2.2 [place] # (Auto) 0.8 Eos # (Auto) 0.7 H Baso # (Auto) 0.0 Abs Immat Gran (auto) 0.04 H Absolute Neuts (auto) 4.2 Absolute Nucleated RBC 0.000 Nucleated RBC % (auto) 0.0 PT 11.2 INR 1.0 APTT 34.2 Anion Gap 12 Estim Creat Clear Calc 62.1 Estimated GFR 56 Random Glucose 102 Calcium 9.3 D Total Bilirubin 0.2 AST 24 ALT 21 Alkaline Phosphatase 47 Total Protein 6.2 L Albumin 4.1 COVID-19 (NICOLE) COVID-19 Clin Com 04/25/21 22:42 MCV MCH MCHC RDW Plt Count MPV Immature Gran % (Auto) Neut % (Auto) Lymph % (Auto) [place] % (Auto) Eos % (Auto) Baso % (Auto) Lymph # (Auto) [place] # (Auto) Eos # (Auto) Baso # (Auto) Abs Immat Gran (auto) Absolute Neuts (auto) Absolute Nucleated RBC Nucleated RBC % (auto) PT INR APTT Anion Gap Estim Creat Clear Calc Estimated GFR Random Glucose Calcium Total Bilirubin AST ALT Alkaline Phosphatase Total Protein Albumin COVID-19 (NICOLE) Negative COVID-19 Clin Com See Note Imaging Radiologist's Impressions: Impressions Chest X-Ray 04/25/21 22:00 IMPRESSION: Unremarkable examination. Assessment and Plan (1) ACS (acute coronary syndrome): Status: Acute (2) Chest pain: Status: Acute (3) Non-ST elevation MA (NSTEMI): Status: Acute Plan 55-year-old male with past medical history of coronary artery disease status post stent to the LAD presents to the hospital with complaints of chest pain # ACS/ NSTEMI - likely NSTEMI in the setting of typical chest pain with elevated troponin - patient with history of LAD stent - patient start heparin drip, cardiology consult, will obtain echocardiogram - continue DAPT - trend troponin # chest pain - likely secondary to above - heparin GGT - continue DAPT # history of bipolar disorder /schizoaffective - continue mood stabilizers # hypothyroidism - continue levothyroxine DVT prophylaxis: Heparin GGT Quality Stroke Does the patient have a stroke diagnosis?: No VTE Prior VTE?: No VTE Risk Level:: Medical - low VTE Device Contraindication: Treatment Not Indicated VTE Drug Contraindication: Treatment Not Indicated
[2021-04-26 00:09] VITALS: BMI 36.1
[2021-04-26 00:24] LABS: Hematocrit 35.3 % (42.0-52.0); Hemoglobin 11.9 g/dl (14.0-18.0); Mean Corpuscular HGB Conc 33.7 g/dl (31.0-36.0); Mean Corpuscular Hemoglobin 31.2 pg (27.0-33.0); Mean Corpuscular Volume 92.7 fL (80.0-98.0); Mean Platelet Volume 8.9 fL (9.4-12.4); Platelet Count 160 X10*3/uL (160-400); Red Blood Count 3.81 X10*6/uL (4.60-5.80); Red Cell Distribution Width 12.5 % (11.0-16.0); White Blood Count 8.3 X10*3/uL (4.8-10.8)
[2021-04-26 00:34] LABS: Prothrombin Time 11.3 SEC (9.9-13.0)
[2021-04-26 00:37] LABS: PTT Heparin Drip 35.2 SEC (53-77.9)
[2021-04-26] MEDS: Heparin Sodium,Porcine/1/2NS 25,000 UNIT/250 ML IV.SOLN 9.6 UNIT IVCONT (01:43)
[2021-04-26] MEDS: Heparin Sodium,Porcine 5,000 UNIT/ML VIAL 4000 UNIT IVPUSH (01:47)
--- NOTE | 2021-04-26 01:50 | PC.NURSE ---
Heparin up and running as per emar. awaiting for Heparin to be verified by pharmacy. pt deneis s/s of bleeding anywhere.
[2021-04-26 03:41] VITALS: BP 106/53; PULSE 59; RESP 18; O2SAT 97
[2021-04-26 06:02] LABS: Hematocrit 37.3 % (42.0-52.0); Hemoglobin 12.6 g/dl (14.0-18.0); Mean Corpuscular HGB Conc 33.8 g/dl (31.0-36.0); Mean Corpuscular Hemoglobin 31.5 pg (27.0-33.0); Mean Corpuscular Volume 93.3 fL (80.0-98.0); Platelet Count 158 X10*3/uL (160-400); Red Cell Distribution Width 12.5 % (11.0-16.0); White Blood Count 7.1 X10*3/uL (4.8-10.8)
[2021-04-26 06:23] LABS: Prothrombin Time 11.4 SEC (9.9-13.0)
[2021-04-26 06:25] LABS: PTT Heparin Drip 87.5 SEC (53-77.9)
[2021-04-26 06:27] VITALS: BP 108/62; PULSE 60; RESP 13; TEMP 36.6; O2SAT 97
[2021-04-26 06:33] LABS: Anion Gap 11 (12-20); Blood Urea Nitrogen 21 mg/dL (9-16); Calcium 8.9 mg/dL (8.4-10.2); Carbon Dioxide 20 mmol/L (22-29); Chloride 114 mmol/L (96-108); Creatinine Clr Calc Pharmacy 70.7; Estimated Glomerular Filt Rate 57; Glucose Random 91 mg/dL (60-115); Sodium 141 mmol/L (135-145)
--- NOTE | 2021-04-26 07:13 | PHA.MEDREC ---
Pharmacy Consult ? Medication Reconciliation Pharmacy has reviewed the medication reconciliation completed by Vicky. There are no remarkable issues for provider's attention. Freda Russell, PharmD
--- NOTE | 2021-04-26 08:36 | MHC.CM.PN ---
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 Patient's goal is to return home and CM has initiated and will follow for dc planning. CM addressed ROTHMAN with Patient; he was already aware of the OBSERVATION status. Patient has received Pfizer vax X3 and PCP is Dr. Omid Cheung.
--- NOTE | 2021-04-26 08:52 | PC.NURSE ---
PER DR NAIK @ THIS TIME, PT WILL BE TRANSFERRED TO [facility]
--- NOTE | 2021-04-26 09:25 | PM.CNCAR ---
History of Present Illness History of Present Illness Date of Service: 04/26/21 Requesting physician: Acosta Paredes Chief complaint: R/O acute coronary syndrome Narrative: I was consulted to see Brady in cardiology consultation today because of sudden-onset chest pressure. He has the 55-year-old male with prior history of hypertrophic obstructive cardiomyopathy, CAD with drug-eluting stent to the LAD for symptoms of exertional shortness of breath and fatigue. The symptoms improved. The last 3 months he has been getting tiny chest pains here and there. He thought this was related to stress. Not much pay attention to it. Yesterday evening he was under stress and he developed sudden-onset retrosternal chest pressure associated with some diaphoresis and then numbness in his left arm. Symptoms are very severe. He continued to have symptoms but did not mention to his family because he was worried about stressing his mom. However symptoms persisted and he presented emergency room 3 hours later. His 1st troponin was 95. EKG shows no changes and shows diffuse T-wave inversion which is unchanged from before and related to hypertrophic obstructive cardiomyopathy. He got aspirin EN route and in the ED and then got sublingual nitroglycerin and eventual resolution of his symptoms. No repeat troponins were done in 3 hours which is unusual. He was started on IV heparin after consulting with me yesterday because of his typical symptoms as were recorded by the ED physician. Any was admitted for observation. He remains chest pain-free this morning. He is very anxious and nervous. Blood pressure are well controlled. Review of Systems Constitutional: Constitutional: Reports no additional constitutional complaints Eyes: Eyes: Reports no additional eye complaints ENT: Reports system reviewed and no additional complaints, except as documented Cardiovascular: Cardiovascular: Reports chest pain at rest, Denies lightheadedness, Denies Loss of Consciousness, Denies palpitations, Denies dyspnea and Denies dyspnea on exertion Respiratory: Respiratory: Reports no additional respiratory complaints, Denies dyspnea and Denies dyspnea on exertion Gastrointestinal: Gastrointestinal: Reports no additional gastrointestinal complaints Genitourinary: Genitourinary: Reports no additional male genitourinary complaints Musculoskeletal: Musculoskeletal: Reports no additional musculoskeletal complaints Integumentary/Breasts: Skin/Breast: Reports system reviewed and no additional complaints, except as docu Neurologic: Reports system reviewed and no additional complaints, except as documented Psychiatric: Psychiatric: Reports no additional psychiatric complaints Endocrine: Endocrine: Reports no additional endocrine complaints and Denies palpitations Hematologic/Lymphatic: Hematologic/Lymphatic: Reports no additional hematologic/lymphatic complaints Allergic/Immunologic: Allergic/Immunologic: Reports no additional allergic/immunologic complaints [facility] Past Medical History Medical History Bipolar disorder CAD (coronary artery disease) Chronic kidney disease Hypothyroidism Ischemic colitis Non-ST elevation PR (NSTEMI) Presence of stent in LAD coronary artery Schizoaffective disorder Family History Family History Father Liver cancer Monoallelic mutation of MET gene Mother Arthritis Cancer Pacemaker Surgical History Surgical History History of appendectomy History of cholecystectomy History of heart artery stent History of tonsillectomy Social History Social History Housing: House Patient Tobacco Use Status: Current everyday Tobacco user Cigarette Packs Per Day: 1 Cigarettes Per Day: 20 Years Smoked: 12 years Substance Use Type: Marijuana Advance Directives: No Advance Directives Information Provided: No service: No Current occupational status: disabled Meds Allergies Allergy/AdvReac Type Severity Reaction Status Date / Time neff [CHERRIES] Allergy Unknown digestive Verified 04/17/21 15:56 issues (only with fresh) gluten [GLUTEN] Allergy Unknown digestive Verified 04/17/21 15:56 issues ibuprofen [From MOTRIN] Allergy Unknown UNKNOWN Verified 04/17/21 15:56 mayonnaise [MAYONNAISE] Allergy Unknown digestive Verified 04/17/21 15:56 issues Penicillins [PENICILLINS] Allergy Unknown UNKNOWN Verified 04/17/21 15:56 rosuvastatin [Crestor] Allergy Unknown unknown Verified 04/17/21 15:56 soy [SOY] Allergy Unknown digestive Verified 04/17/21 15:56 issue Sulfa (Sulfonamide Allergy Unknown unknown Verified 04/17/21 15:56 Antibiotics) [SULFA (SULFONAMIDE ANTIBIOTICS)] wheat [WHEAT] Allergy Unknown digestive Verified 04/17/21 15:56 issues lamotrigine [LAMOTRIGINE] AdvReac Intermediate HEADACHES Verified 04/17/21 15:56 oxycodone [OXYCODONE] AdvReac Intermediate racing Verified 04/17/21 15:56 thoughts APPLE JUICE Allergy Unknown digestive Uncoded 03/10/21 15:15 issues fresh sridevi cherries Allergy Unknown unknown Uncoded 03/10/21 15:15 Active Medications: Current Medications Acetaminophen (Acetaminophen 325 Mg Tablet) 650 mg PO Q6H PRN PRN Reason: Pain, Mild (Pain Scale 1-3) Albuterol Sulfate (Albuterol Sulfate 90 Mcg 8 Gm Inhaler) 1 puff INHALE Q6H PRN PRN Reason: Shortness of Breath Aspirin (Aspirin Enteric Coated 81 Mg Tablet.Dr) 81 mg PO DAILY PENDING SALE TO [facility] Atorvastatin Calcium (Atorvastatin Calcium 80 Mg Tablet) 80 mg PO DAILY PENDING SALE TO [facility] Benztropine Mesylate (Benztropine Mesylate 1 Mg Tablet) 2 mg PO BEDTIME GALDINO Buspirone HCl (Buspirone Hcl 5 Mg Tablet) 15 mg PO BEDTIME PENDING SALE TO [facility] Clopidogrel Bisulfate (Clopidogrel Bisulfate 75 Mg Tablet) 75 mg PO DAILY PENDING SALE TO [facility] Docusate Sodium (Docusate Sodium 100 Mg Capsule) 100 mg PO DAILY PRN PRN Reason: Constipation Doxazosin Mesylate (Doxazosin Mesylate 2 Mg Tablet) 2 mg PO DAILY PENDING SALE TO [facility] Fenofibrate (Fenofibrate 54 Mg Tablet) 54 mg PO DAILY PENDING SALE TO [facility] Heparin Sodium (Porcine) (Heparin Sodium,Porcine 5,000 Unit/Ml Vial) 3,200 unit 40 unit/kg (3200 unit) IVPUSH PROTOCOL BOLUS PRN; Protocol PRN Reason: 40 unit/kg - Heparin Protocol Heparin Sodium (Porcine) (Heparin Sodium,Porcine 5,000 Unit/Ml Vial) 6,400 unit 80 unit/kg (6400 unit) IVPUSH PROTOCOL BOLUS PRN; Protocol PRN Reason: 80 unit/kg - Heparin Protocol Heparin Sodium/Sodium Chloride () 25,000 unit in 250 mls @ 9.6 mls/hr IVCONT .Q24H GALDINO; Protocol Last Admin: 04/26/21 01:43 Dose: 12 units/kg/hr, 9.6 mls/hr Documented by: Lamotrigine (Lamotrigine 100 Mg Tablet) 400 mg PO BEDTIME PENDING SALE TO [facility] Levothyroxine Sodium (Levothyroxine Sodium 25 Mcg Tablet) 25 mcg PO DAILY@0600 PENDING SALE TO [facility] Loratadine (Loratadine 10 Mg Tablet) 10 mg PO DAILY PENDING SALE TO [facility] Meclizine HCl (Meclizine Hcl 25 Mg Tablet) 25 mg PO DAILY PRN PRN Reason: for dizziness Metoprolol Succinate (Metoprolol Succinate Er 25 Mg Tab.Er.24h) 25 mg PO DAILY GALDINO; Protocol Ondansetron HCl (Ondansetron Hcl 4 Mg/2 Ml Vial) 4 mg IVPUSH Q8H PRN PRN Reason: Nausea and Vomiting Polyethylene Glycol (Polyethylene Glycol 3350 17 Gm Powd.Pack) 17 gm PO DAILY PRN PRN Reason: for constipation Quetiapine Fumarate (Quetiapine Fumarate 300 Mg Tablet) 300 mg PO BID PENDING SALE TO [facility] Quetiapine Fumarate (Quetiapine Fumarate 25 Mg Tablet) 75 mg PO BEDTIME PENDING SALE TO [facility] Sodium Chloride (0.9 % Sodium Chloride Flush 3 Ml Syringe) 3 ml IVFLUSH QSHIFT GALDINO Last Admin: 04/26/21 00:12 Dose: Not Given Documented by: Topiramate (Topiramate 100 Mg Tablet) 100 mg PO BEDTIME PENDING SALE TO [facility] Triamcinolone Acetonide (Triamcinolone Acet 0.1 % Cream 15 Gm Tube) 1 appl TOPICAL DAILY PRN; Protocol PRN Reason: Rash Home Medications Medication Instructions Recorded Confirmed Last Taken Type buspirone 15 mg tablet 15 mg PO BEDTIME 03/01/20 04/26/21 Unknown History lamotrigine 200 mg tablet 400 mg PO BEDTIME 03/01/20 04/26/21 Unknown History quetiapine 300 mg tablet,extended 600 mg PO BEDTIME 03/01/20 04/26/21 Unknown History release 24 hr topiramate 100 mg tablet 100 mg PO BEDTIME 03/01/20 04/26/21 Unknown History aspirin 81 mg tablet,delayed 81 mg PO DAILY 03/02/20 04/26/21 Unknown History release (Adult Aspirin Regimen) quetiapine 150 mg tablet,extended 150 mg PO BEDTIME 02/02/21 04/26/21 Unknown History release 24 hr (Seroquel XR) benztropine 1 mg tablet 2 mg PO BEDTIME 04/17/21 04/26/21 Unknown History albuterol sulfate 90 mcg/actuation 1 puff INHALATION Q6-8H PRN 04/26/21 04/26/21 Unknown History aerosol inhaler triamcinolone acetonide 0.1 % 1 appl TOPICAL DAILY PRN 04/26/21 04/26/21 Unknown History topical cream Physical Exam Vital Signs: Vital Signs: Last Vital Signs Temp 97.9 F 04/26/21 06:27 Pulse 60 04/26/21 06:27 Resp 13 04/26/21 06:27 BP 108/62 04/26/21 06:27 Pulse Ox 97 04/26/21 06:27 BMI result Body Mass Index 36.1 Const: General: cooperative, comfortable, no acute distress, alert, awake and anxious Nutritional Appearance: overweight Orientation/consciousness: patient oriented x3 Limitations: no limitations HENMT: Head: Yes normocephalic and Yes atraumatic Neck: Neck: Yes trachea midline, Yes supple and Yes no JVD Chest: Chest palpation & inspection: normal inspection of the chest Resp: Effort & Inspection: normal respiratory effort Auscultation: clear to auscultation bilaterally Cardio: Jugular venous distension: no JVD Palpation: normal PMI Rate: regular rate Rhythm: regular rhythm Heart sounds: S1 normal heart sound present, S2 normal heart sound present, no click, no gallops and Murmur heart sound present systolic early, decrescendo, crescendo and at the left sternal border Peripheral pulses: Peripheral pulses 2+ throughout GI: Auscultation: normal bowel sounds Skin: General skin exam: no rashes or lesions noted Neuro: General: patient oriented x3 and no focal motor deficits Extrem: General: Yes no clubbing, cyanosis or edema Psych: Appearance: grossly normal Affect: Anxious affect present Objective Labs and Meds Result diagrams: 04/26/21 05:56 04/26/21 05:56 Lab results: Laboratory Results - last 24 hr 04/25/21 04/25/21 04/25/21 22:42 22:42 22:42 WBC 8.0 RBC 3.98 L Hgb 12.4 L Hct 36.3 L MCV 91.2 MCH 31.2 MCHC 34.2 RDW 12.4 Plt Count 173 MPV 8.9 L Immature Gran % (Auto) 0.5 H Neut % (Auto) 52.4 Lymph % (Auto) 27.9 [place] % (Auto) 10.2 Eos % (Auto) 8.5 H Baso % (Auto) 0.5 Lymph # (Auto) 2.2 [place] # (Auto) 0.8 Eos # (Auto) 0.7 H Baso # (Auto) 0.0 Abs Immat Gran (auto) 0.04 H Absolute Neuts (auto) 4.2 Absolute Nucleated RBC 0.000 Nucleated RBC % (auto) 0.0 PT 11.2 INR 1.0 APTT 34.2 aPTT Heparin Protocol Sodium 143 Potassium 3.9 Chloride 112 H Carbon Dioxide 23 Anion Gap 12 BUN 22 H Creatinine 1.32 Estim Creat Clear Calc 62.1 Estimated GFR 56 Random Glucose 102 Calcium 9.3 D Total Bilirubin 0.2 AST 24 ALT 21 Alkaline Phosphatase 47 Troponin I High Sens Total Protein 6.2 L Albumin 4.1 COVID-19 (NICOLE) COVID-19 Clin Com 04/25/21 04/25/21 04/26/21 22:42 22:42 00:18 WBC 8.3 RBC 3.81 L Hgb 11.9 L Hct 35.3 L MCV 92.7 MCH 31.2 MCHC 33.7 RDW 12.5 Plt Count 160 MPV 8.9 L Immature Gran % (Auto) Neut % (Auto) Lymph % (Auto) [place] % (Auto) Eos % (Auto) Baso % (Auto) Lymph # (Auto) [place] # (Auto) Eos # (Auto) Baso # (Auto) Abs Immat Gran (auto) Absolute Neuts (auto) Absolute Nucleated RBC 0.000 Nucleated RBC % (auto) 0.0 PT INR APTT aPTT Heparin Protocol Sodium Potassium Chloride Carbon Dioxide Anion Gap BUN Creatinine Estim Creat Clear Calc Estimated GFR Random Glucose Calcium Total Bilirubin AST ALT Alkaline Phosphatase Troponin I High Sens 91.5 H Total Protein Albumin COVID-19 (NICOLE) Negative COVID-19 Clin Com See Note 04/26/21 04/26/21 04/26/21 00:18 05:56 05:56 WBC 7.1 RBC 4.00 L Hgb 12.6 L Hct 37.3 L MCV 93.3 MCH 31.5 MCHC 33.8 RDW 12.5 Plt Count 158 L MPV 9.0 L Immature Gran % (Auto) Neut % (Auto) Lymph % (Auto) [place] % (Auto) Eos % (Auto) Baso % (Auto) Lymph # (Auto) [place] # (Auto) Eos # (Auto) Baso # (Auto) Abs Immat Gran (auto) Absolute Neuts (auto) Absolute Nucleated RBC 0.000 Nucleated RBC % (auto) 0.0 PT 11.3 INR 1.0 APTT aPTT Heparin Protocol 35.2 L Sodium 141 Potassium 4.0 Chloride 114 H Carbon Dioxide 20 L Anion Gap 11 L BUN 21 H Creatinine 1.30 Estim Creat Clear Calc 70.7 Estimated GFR 57 Random Glucose 91 Calcium 8.9 Total Bilirubin AST ALT Alkaline Phosphatase Troponin I High Sens Total Protein Albumin COVID-19 (NICOLE) COVID-19 Clin Com 04/26/21 04/26/21 05:56 05:56 WBC RBC Hgb Hct MCV MCH MCHC RDW Plt Count MPV Immature Gran % (Auto) Neut % (Auto) Lymph % (Auto) [place] % (Auto) Eos % (Auto) Baso % (Auto) Lymph # (Auto) [place] # (Auto) Eos # (Auto) Baso # (Auto) Abs Immat Gran (auto) Absolute Neuts (auto) Absolute Nucleated RBC Nucleated RBC % (auto) PT 11.4 INR 1.0 APTT aPTT Heparin Protocol 87.5 H D Sodium Potassium Chloride Carbon Dioxide Anion Gap BUN Creatinine Estim Creat Clear Calc Estimated GFR Random Glucose Calcium Total Bilirubin AST ALT Alkaline Phosphatase Troponin I High Sens Total Protein Albumin COVID-19 (NICOLE) COVID-19 Clin Com Imaging Radiologist's impression: Impressions Chest X-Ray 04/25/21 22:00 IMPRESSION: Unremarkable examination. Assessment and Plan (1) ACS (acute coronary syndrome): Status: Acute Plan Sudden-onset symptoms of chest pressure with prolonged chest pressure with elevated troponins, nondiagnostic EKG resolution with nitroglycerin with prior CAD to stent to the LAD on aspirin therapy. He is also on high-intensity statin and Plavix at home. He is currently on IV heparin drip with resolved symptoms. Needs cardiac catheterization to evaluate coronary anatomy and further treatment plan. This was discussed with him. JEROME risk score of at least 4. He got nervous with mention to go to [facility] but after discussing with him the need for it he finally agreed. Arrangements are being made to be transferred to [facility]. Continue IV heparin drip. Continue dual antiplatelet therapy. Continue metoprolol and high-intensity statin therapy. Further treatment based on findings of cardiac catheterization. Will follow up in the clinic. Thank you for allowing us to partake in his care Procedures Date of Service Date of Service: 04/26/21
--- NOTE | 2021-04-26 09:42 | PM.DS ---
DS: Providers Provider Date of Service: 04/26/21 Date of admission: 04/25/21 23:56 Primary care physician: Omid Cheung PA-C Consults: 04/25/21 23:53 Consult to Cardiology Routine Consulting Provider: Kevin Cunningham Reason for consultation: Chest pain, Has provider been notified: Yes DS: Diagnosis Discharge Diagnosis (1) ACS (acute coronary syndrome): Status: Acute DS: Summary Hospital Course Hospital Course: 55-year-old male with past medical history of coronary artery disease status post stent? to the LAD after undergoing cardiac catheterization for an abnormal stress test performed for exertional chest tightness who presents to the hospital with complaints of chest pain.? Patient describes the chest pain as initially stabbing then becoming pressure-like and punching sensation in his chest, radiating to the left arm.? Patient reports that the pain is constant, 8/10, associated with mild exertional shortness of breath, no cough, no headache, no change in vision.? no fever chills, no abdominal pain no nausea or vomiting, no diarrhea constipation, no urinary symptoms and no lower extremity edema.? Patient reports compliance with? all his medications. ? On arrival to the ED patient hemodynamically stable with no significant abnormal vitals Labs are significant for WBC count of 7.1, hemoglobin of 12.6? initial troponin of 91.5, ?EKG? Showed normal sinus rhythm with? T-wave inversions in the lateral leads V4 V5 and V6 as well as lead 1 to and aVL which were present on previous EKG done in May 2018. hospital course:patient came with chest pressure with prolonged chest pressure with elevated troponins, nondiagnostic EKG resolution with nitroglycerin with prior CAD to stent to the LAD on aspirin therapy.? He is also on high-intensity statin and Plavix at home.? He is currently on IV heparin drip with resolved symptoms.?seen by cardiology: Needs cardiac catheterization to evaluate coronary anatomy and further treatment plan.?? Continue IV heparin drip.? Continue dual antiplatelet therapy, metoprolol and high-intensity statin therapy.? Further treatment based on findings of cardiac catheterization.? Above management discussed with the patient in detail length he understand and in agreement with the above plan, time spent 50 minutes and 50% time spent on counseling. Significant findings: As above. Procedures performed: None. Treatment and response: As above. Complications: None. Time Spent with Patient Time attestation: Total time spent providing and/or coordinating discharge services: Discharge coordination time: Greater than 30 minutes Quality: Stroke Does the patient have a stroke diagnosis?: No Physical Exam Vital Signs: Vital Signs: Last Vital Signs Temp 97.9 F 04/26/21 06:27 Pulse 60 04/26/21 06:27 Resp 13 04/26/21 06:27 BP 108/62 04/26/21 06:27 Pulse Ox 97 04/26/21 06:27 BMI result Body Mass Index 36.1 Appearance: Alert.? Oriented X3.? not in distress.? Eyes: Pupils equal, round and reactive to light.? Sclera nonicteric.? ENT: Pharynx normal.? Moist mucous membranes. cvs: rrr, [id number]. res: clear to auscultation ,no rhonchii or wheezing abd: no rebound or guarding ,nt, bs present. ext pulses present , no cyanosis. neuro: axo3 , nonfocal. DS: Data Data Completed and Pending Labs on day of discharge: Laboratory Results - last 24 hr 04/25/21 04/25/21 04/25/21 22:42 22:42 22:42 WBC 8.0 RBC 3.98 L Hgb 12.4 L Hct 36.3 L MCV 91.2 MCH 31.2 MCHC 34.2 RDW 12.4 Plt Count 173 MPV 8.9 L Immature Gran % (Auto) 0.5 H Neut % (Auto) 52.4 Lymph % (Auto) 27.9 Stark % (Auto) 10.2 Eos % (Auto) 8.5 H Baso % (Auto) 0.5 Lymph # (Auto) 2.2 Stark # (Auto) 0.8 Eos # (Auto) 0.7 H Baso # (Auto) 0.0 Abs Immat Gran (auto) 0.04 H Absolute Neuts (auto) 4.2 Absolute Nucleated RBC 0.000 Nucleated RBC % (auto) 0.0 PT 11.2 INR 1.0 APTT 34.2 aPTT Heparin Protocol Sodium 143 Potassium 3.9 Chloride 112 H Carbon Dioxide 23 Anion Gap 12 BUN 22 H Creatinine 1.32 Estim Creat Clear Calc 62.1 Estimated GFR 56 Random Glucose 102 Calcium 9.3 D Total Bilirubin 0.2 AST 24 ALT 21 Alkaline Phosphatase 47 Troponin I High Sens Total Protein 6.2 L Albumin 4.1 COVID-19 (NICOLE) COVID-19 Clin Com 04/25/21 04/25/21 04/26/21 22:42 22:42 00:18 WBC 8.3 RBC 3.81 L Hgb 11.9 L Hct 35.3 L MCV 92.7 MCH 31.2 MCHC 33.7 RDW 12.5 Plt Count 160 MPV 8.9 L Immature Gran % (Auto) Neut % (Auto) Lymph % (Auto) Stark % (Auto) Eos % (Auto) Baso % (Auto) Lymph # (Auto) Stark # (Auto) Eos # (Auto) Baso # (Auto) Abs Immat Gran (auto) Absolute Neuts (auto) Absolute Nucleated RBC 0.000 Nucleated RBC % (auto) 0.0 PT INR APTT aPTT Heparin Protocol Sodium Potassium Chloride Carbon Dioxide Anion Gap BUN Creatinine Estim Creat Clear Calc Estimated GFR Random Glucose Calcium Total Bilirubin AST ALT Alkaline Phosphatase Troponin I High Sens 91.5 H Total Protein Albumin COVID-19 (NICOLE) Negative COVID-19 Clin Com See Note 04/26/21 04/26/21 04/26/21 00:18 05:56 05:56 WBC 7.1 RBC 4.00 L Hgb 12.6 L Hct 37.3 L MCV 93.3 MCH 31.5 MCHC 33.8 RDW 12.5 Plt Count 158 L MPV 9.0 L Immature Gran % (Auto) Neut % (Auto) Lymph % (Auto) Stark % (Auto) Eos % (Auto) Baso % (Auto) Lymph # (Auto) Stark # (Auto) Eos # (Auto) Baso # (Auto) Abs Immat Gran (auto) Absolute Neuts (auto) Absolute Nucleated RBC 0.000 Nucleated RBC % (auto) 0.0 PT 11.3 INR 1.0 APTT aPTT Heparin Protocol 35.2 L Sodium 141 Potassium 4.0 Chloride 114 H Carbon Dioxide 20 L Anion Gap 11 L BUN 21 H Creatinine 1.30 Estim Creat Clear Calc 70.7 Estimated GFR 57 Random Glucose 91 Calcium 8.9 Total Bilirubin AST ALT Alkaline Phosphatase Troponin I High Sens Total Protein Albumin COVID-19 (NICOLE) COVID-19 Clin Com 04/26/21 04/26/21 05:56 05:56 WBC RBC Hgb Hct MCV MCH MCHC RDW Plt Count MPV Immature Gran % (Auto) Neut % (Auto) Lymph % (Auto) Stark % (Auto) Eos % (Auto) Baso % (Auto) Lymph # (Auto) Stark # (Auto) Eos # (Auto) Baso # (Auto) Abs Immat Gran (auto) Absolute Neuts (auto) Absolute Nucleated RBC Nucleated RBC % (auto) PT 11.4 INR 1.0 APTT aPTT Heparin Protocol 87.5 H D Sodium Potassium Chloride Carbon Dioxide Anion Gap BUN Creatinine Estim Creat Clear Calc Estimated GFR Random Glucose Calcium Total Bilirubin AST ALT Alkaline Phosphatase Troponin I High Sens Total Protein Albumin COVID-19 (NICOLE) COVID-19 Clin Com Additional Comments Additional comments: XR/XR chest 1V IMPRESSION: Unremarkable examination. ?XR/XR tibia fibula LT 2V IMPRESSION: Normal left tibia and fibula ?XR/XR ankle LT min 3V IMPRESSION: Normal left ankle. Discharge Plan Discharge Patient Disposition: Xf Acute Care Hospital Discharge Diagnosis: nstemi Referrals: Omid Cheung PA-C [Primary Care Provider] - 1 Week Discharge Medications: New heparin(porcine) in 0.45% NaCl 25,000 unit/250 mL Parenteral Solution 25,000 unit continuous IV infusion .Q24H Qty: 250 0RF Rx Instructions: Continue heparin drip current rate, monitor PT PTT as per protocol. Continued fexofenadine 180 mg tablet 180 mg PO DAILY 90 Days Qty: 90 2RF metoprolol succinate 25 mg tablet extended release 24 hr 25 mg PO DAILY Qty: 90 3RF polyethylene glycol 3350 17 gram powder in packet 17 g PO DAILY PRN (Reason: for constipation) Qty: 30 2RF meclizine 25 mg tablet 25 mg PO DAILY PRN (Reason: for dizziness) Qty: 90 3RF atorvastatin 80 mg tablet 80 mg PO DAILY Qty: 90 2RF clopidogrel 75 mg tablet 75 mg PO DAILY 90 Days Qty: 90 1RF terazosin 2 mg capsule 2 mg PO DAILY Qty: 30 3RF fenofibrate nanocrystallized 48 mg tablet 48 mg PO DAILY Qty: 30 3RF levothyroxine 25 mcg tablet 25 mcg PO DAILY Qty: 30 3RF benztropine 1 mg tablet 2 mg PO BEDTIME 0RF triamcinolone acetonide 0.1 % cream 1 appl topical DAILY PRN (Reason: Rash) 0RF albuterol sulfate 90 mcg/actuation HFA aerosol inhaler 1 puff inhalation Q6-8H PRN (Reason: Shortness Of Breath) 0RF quetiapine 300 mg tablet extended release 24 hr 600 mg PO BEDTIME 0RF topiramate 100 mg tablet 100 mg PO BEDTIME 0RF lamotrigine 200 mg tablet 400 mg PO BEDTIME 0RF buspirone 15 mg tablet 15 mg PO BEDTIME 0RF aspirin [Adult Aspirin Regimen] 81 mg tablet,delayed release (DR/EC) 81 mg PO DAILY 0RF quetiapine [Seroquel XR] 150 mg tablet extended release 24 hr 150 mg PO BEDTIME 0RF Discharge Orders: Discharge Order (Routine); Ordered 04/26/21 Ordered By: Kelly Arevalo Diet: advance to usual diet, low fat, low cholesterol and low salt diet Activity on Discharge: As tolerated Stand Alone Forms: Patient Portal Discharge page Care Plan Goals: Sudden-onset symptoms of chest pressure with prolonged chest pressure with elevated troponins, nondiagnostic EKG resolution with nitroglycerin with prior CAD to stent to the LAD-? seen by cardiology-He is currently on IV heparin drip with resolved symptoms.? Needs cardiac catheterization and further workup-going to [facility]. Health Concerns: As above. Plan of Treatment: As above. Assessment: As above. Discharge Date/Time: 04/26/21 18:50
[2021-04-26 09:55] LABS: Troponin-I High Sensitivity 72.8 ng/L (<3.5-35.0)
--- NOTE | 2021-04-26 12:08 | PC.NURSE ---
patient refusing am medications, pt states he takes all his meds at 2pm, pharmacy notified to change timing of medications
[2021-04-26] MEDS: Heparin Sodium,Porcine 5,000 UNIT/ML VIAL 3200 UNIT IVPUSH (14:02)
--- NOTE | 2021-04-26 14:06 | PC.NURSE ---
heparin drip was adjusted per protocol, patients ptt was 51, pt heparin drip was running at 7.862 u/kg/hr, patient was bolused and heparin drip increased to 9.862.
[2021-04-26] MEDS: Metoprolol Succinate ER 25 MG TAB.ER.24H PO (14:37)
[2021-04-26] MEDS: lamoTRIgine 100 MG TABLET 400 MG PO (14:38)
[2021-04-26] MEDS: Topiramate 100 MG TABLET PO (14:39)
[2021-04-26] MEDS: Benztropine Mesylate 1 MG TABLET 2 MG PO (14:39)
[2021-04-26] MEDS: Loratadine 10 MG TABLET PO (14:39)
[2021-04-26] MEDS: Aspirin Enteric Coated 81 MG TABLET.DR PO (14:39)
[2021-04-26] MEDS: Doxazosin Mesylate 2 MG TABLET PO (14:40)
[2021-04-26] MEDS: Clopidogrel Bisulfate 75 MG TABLET PO (14:40)
[2021-04-26] MEDS: Atorvastatin Calcium 80 MG TABLET PO (14:40)
[2021-04-26 14:47] VITALS: BP 125/75; PULSE 62; RESP 18; TEMP 36.6; O2SAT 98
--- NOTE | 2021-04-26 14:54 | PC.NURSE ---
p a&ox4, vss, NSR on monitor, pt reporting some hip/back pain from hospital stretcher, medicated per provider order, will continue to monitor.
--- NOTE | 2021-04-26 15:10 | PC.NURSE ---
called pharmacy for missing meds
--- NOTE | 2021-04-26 15:19 | PC.NURSE ---
pt accepted [facility] 7 room 9 nurse - nurse [phone]
--- NOTE | 2021-04-26 15:49 | PC.NURSE ---
RN-RN report given to nurse at [facility] - pt going to bed 9, [facility]. unsure of transport time, advised that visiting hours at [facility] stop at 1999.
[2021-04-26] MEDS: busPIRone HCl 5 MG TABLET 15 MG PO (16:31)
[2021-04-26] MEDS: Fenofibrate 54 MG TABLET PO (16:32)
[2021-04-26] MEDS: Acetaminophen 325 MG TABLET 650 MG PO (16:34)
[2021-04-26 16:45] VITALS: BP 140/74; PULSE 68
[2021-04-26] MEDS: Nitroglycerin 2 % Oint 1 GM Packet 0.5 INCH TRANSDERMA (16:45)
[2021-04-26] MEDS: Nitroglycerin 0.4 MG TAB.SUBL SUBLINGUAL (16:45)
[2021-04-26 18:25] VITALS: BP 140/74; PULSE 54; RESP 15; TEMP 36.6; O2SAT 98
--- NOTE | 2021-04-26 19:02 | P.EN_ITS ---
Event Note Date of Service: 04/26/21 Event Note: Call by RN patient developed chest pain just prior to leaving to [facility] Patient complained of 6/10 midsternal chest discomfort pressure-like without associated diaphoresis no shortness of breath On examination awake alert Lungs clear to auscultation Heart regular rate rhythm Extremities no edema Assessment and plan Chest pain treated with 1/2 ntp and 2 s/l nitro tabs pain improved, case discussed with Dr. Ernst patient will be transferred to [facility] on IV heparin, Plavix, statin and beta-blockers
--- NOTE | 2021-04-26 19:42 | PC.NURSE ---
pt was given nitro at 1845 and a 1/2 inch of nitro paste placed on left chest at 1845, second dose of nitro was given at 1850. The time charted was entered in error as 165 & 1650 as the patient was c/o chest pain as the ems providers arrived, stat verbal order was given by hospitalist who came to bedside, meds were overridden in pyxis and given to the patient before the hospitalist could put the order in the computer the patient then immediately discharged to [facility] with ems and the hospitalist put in the order after he had left. pharmacy was called in attempts to correct the times as well as charge nurse was asked how to edit times, the times couldn't be fixed in the system even when attempted with assistance.
== END 2021-04-26 18:50 | disposition short-term general hospital (02) | DRG 282 ==
LOC: HO.ED 04-26 00:03 → HO.EDOVER 04-26 07:27 → HO.IMC 04-26 14:28 → HO.EDOVER 04-26 14:33
PROVIDERS: Admitting Provider Internal Medicine; Emergency Provider Student in an Organized Health Care Education/Training Program; PCP Physician Assistant; Visit Provider Internal Medicine
DX: I21.4 Non-ST elevation (NSTEMI) myocardial infarction (principal); I25.10 Atherosclerotic heart disease of native coronary artery without angina pectoris; F17.210 Nicotine dependence, cigarettes, uncomplicated; E03.9 Hypothyroidism, unspecified; F31.9 Bipolar disorder, unspecified; Z71.6 Tobacco abuse counseling; Z20.822 Contact with and (suspected) exposure to COVID-19; Z88.0 Allergy status to penicillin; Z88.2 Allergy status to sulfonamides; Z88.5 Allergy status to narcotic agent; Z79.82 Long term (current) use of aspirin; Z79.890 Hormone replacement therapy; Z79.899 Other long term (current) drug therapy
CPT/HCPCS: 36415; 71045; 80048; 80053; 84484; 85025; 85027; 85610; 85730; 87635; 93005; 99285

== ENCOUNTER → 2021-05-17 12:48 | Outpatient (BNVA) | payer OTHER, SELFPAY | PROVIDERS: PCP Physician Assistant; Referring Provider Physician Assistant; Visit Provider Nurse Practitioner Family | DX: R07.9 Chest pain, unspecified (principal); I21.4 Non-ST elevation (NSTEMI) myocardial infarction; I42.1 Obstructive hypertrophic cardiomyopathy; E78.5 Hyperlipidemia, unspecified; Z98.890 Other specified postprocedural states | CPT/HCPCS: 99212 ==

== ENCOUNTER 2022-06-13 11:26 | Outpatient (REF) | payer OTHER, SELFPAY ==
[2022-06-13 12:10] LABS: Hematocrit 50.7 % (42.0-52.0); Hemoglobin 16.8 g/dl (14.0-18.0); Mean Corpuscular HGB Conc 33.1 g/dl (31.0-36.0); Mean Corpuscular Hemoglobin 31.2 pg (27.0-33.0); Mean Corpuscular Volume 94.1 fL (80.0-98.0); Platelet Count 141 X10*3/uL (160-400); Red Blood Count 5.39 X10*6/uL (4.60-5.80); White Blood Count 7.3 X10*3/uL (4.8-10.8)
[2022-06-13 13:07] LABS: Alanine Aminotransferase 32 U/L (0-40); Albumin Level 4.7 g/dL (3.5-5.0); Alkaline Phosphatase 68 U/L (39-117); Anion Gap 13 (12-20); Aspartate Amino Transferase 25 U/L (5-37); Bilirubin Total 1.2 mg/dL (0.0-1.0); Blood Urea Nitrogen 16 mg/dL (9-16); Calcium 9.6 mg/dL (8.4-10.2); Carbon Dioxide 28 mmol/L (22-29); Chloride 106 mmol/L (96-108); Cholesterol 145 mg/dL; Estimated Glomerular Filt Rate > 60; Glucose Fasting 86 mg/dL (60-99); HDL Cholesterol 38 mg/dL; LDL Cholesterol Calculated 79 mg/dl; Potassium 4.6 mmol/L (3.3-5.1); Prostate Specific Antigen Scr 0.96 ng/mL (<0.05-4.0); Sodium 142 mmol/L (135-145); TSH reflex Free T4 0.78 uIU/mL (0.32-4.0); Total Protein 6.5 g/dL (6.5-8.0); Triglycerides 142 mg/dL
== END 2022-06-13 11:27 | disposition home or self-care (01) ==
LOC: HO.LAB 11:26
PROVIDERS: PCP Physician Assistant; Visit Provider Physician Assistant
DX: Z12.5 Encounter for screening for malignant neoplasm of prostate (principal); E03.9 Hypothyroidism, unspecified; I25.810 Atherosclerosis of coronary artery bypass graft(s) without angina pectoris; N18.30 Chronic kidney disease, stage 3 unspecified
CPT/HCPCS: 36415; 80053; 80061; 84153; 84443; 85027

== ENCOUNTER 2022-07-22 15:13 | Emergency (ER) | payer OTHER, SELFPAY ==
[2022-07-22 15:24] VITALS: BP 165/85; PULSE 54; O2SAT 100
--- NOTE | 2022-07-22 15:35 | ED_ITS ---
HPI - General Adult General Chief complaint: Wound/Laceration Stated complaint: BLEEDING HEAD S/P SCRATCH+THINNERS PER EMS Time Seen by Provider: 07/22/22 16:30 Source: patient Mode of arrival: ambulatory Limitations: no limitations History of Present Illness HPI narrative: 57 year old male with a history significant for bipolar disorder, ACS, CAD s/p coronary angioplasty, HDL, vertigo, HOCM, dermatitis, asthma, CKD, obesity presents today with a scratch to the back of his head that has been constantly bleeding for the past few hours. Patient states that he was scratching the back of his head while out. Upon returning home he felt that the back of his head was wet and noted that it was blood. He has been unable to control the bleeding. Has been applying pressure to the area without relief of bleeding. Denies head pain, dizziness, headache, or vision changes. Patient is on dual antiplatelet therapy. Patient is not on a blood thinner. No trauma or injury to the head. MD complaint: scalp lesion, actively bleeding Onset (ago): hour(s) Location: head Radiation: non-radiation Severity: moderate Quality: constant Relieving factors: none Exacerbating factors: none Associated symptoms: denies other symptoms Treatments prior to arrival: none Related Data Home Medications Medication Instructions Recorded Confirmed benztropine 1 mg tablet 1 mg PO BEDTIME 05/17/21 06/13/22 lorazepam 1 mg tablet 1 mg PO DAILY PRN 06/13/22 06/13/22 lurasidone 20 mg tablet 20 mg PO BEDTIME 06/13/22 06/13/22 trazodone 50 mg tablet 50 mg PO BEDTIME PRN 06/13/22 06/13/22 Previous Rx's Medication Instructions Recorded aspirin 81 mg tablet,delayed 81 mg PO DAILY #90 tabs 04/12/22 release (Adult Aspirin Regimen) albuterol sulfate 90 mcg/actuation 1 puff inhalation Q6-8H PRN 04/13/22 aerosol inhaler Shortness Of Breath 30 days #8.5 grams atorvastatin 80 mg tablet 80 mg PO DAILY #90 tabs 04/13/22 clopidogrel 75 mg tablet 75 mg PO DAILY 90 days #90 tabs 04/13/22 fexofenadine 180 mg tablet 180 mg PO DAILY 90 days #90 tabs 04/13/22 levothyroxine 25 mcg tablet 25 mcg PO DAILY 90 days #90 tabs 04/13/22 nitroglycerin 0.4 mg sublingual 0.4 mg sublingual Q5M #20 tabs 04/13/22 tablet metoprolol succinate 25 mg 12.5 mg PO DAILY 90 days #45 tabs 06/13/22 tablet,extended release 24 hr Allergies Allergy/AdvReac Type Severity Reaction Status Date / Time neff [CHERRIES] Allergy Unknown digestive Verified 07/22/22 15:36 issues (only with fresh) gluten [GLUTEN] Allergy Unknown digestive Verified 07/22/22 15:36 issues ibuprofen [From MOTRIN] Allergy Unknown UNKNOWN Verified 07/22/22 15:36 mayonnaise [MAYONNAISE] Allergy Unknown digestive Verified 07/22/22 15:36 issues Penicillins [PENICILLINS] Allergy Unknown UNKNOWN Verified 07/22/22 15:36 rosuvastatin [Crestor] Allergy Unknown unknown Verified 07/22/22 15:36 soy [SOY] Allergy Unknown digestive Verified 07/22/22 15:36 issue Sulfa (Sulfonamide Allergy Unknown unknown Verified 07/22/22 15:36 Antibiotics) [SULFA (SULFONAMIDE ANTIBIOTICS)] wheat [WHEAT] Allergy Unknown digestive Verified 07/22/22 15:36 issues lamotrigine [LAMOTRIGINE] AdvReac Intermediate HEADACHES Verified 07/22/22 15:36 oxycodone [OXYCODONE] AdvReac Intermediate racing Verified 07/22/22 15:36 thoughts APPLE JUICE Allergy Unknown digestive Uncoded 06/13/22 10:38 issues fresh sridevi cherries Allergy Unknown unknown Uncoded 06/13/22 10:38 Review of Systems Review of Systems: Yes all other systems are reviewed and are negative [facility] Past Medical History Medical History (Updated 07/22/22 @ 17:57 by ILANA Ballesteros) Bipolar disorder CAD (coronary artery disease) Chronic kidney disease Hypothyroidism Ischemic colitis Non-ST elevation [place] (NSTEMI) Presence of stent in LAD coronary artery Schizoaffective disorder Surgical History History of appendectomy History of cholecystectomy History of heart artery stent History of tonsillectomy S/P cardiac cath Family History Family History Father Liver cancer Monoallelic mutation of MET gene Mother Arthritis Cancer Pacemaker Other Mental health disorder Social History Social History Housing: House Alcohol intake: current Alcohol intake frequency: a few times a week Alcohol type: wine Patient Tobacco Use Status: Current everyday Tobacco user Cigarette Packs Per Day: 0.5 Cigarettes Per Day: 10 Years Smoked: 12 years e-Cigarette/Vaping Use: Currently Using Second Hand Smoke Exposure: Yes Substance Use Type: Marijuana Advance Directives: No Advance Directives Information Provided: No service: No Current occupational status: disabled Cognitive needs: No Hearing needs: No Vision needs: Yes (glasses) Physical Exam ED Vital Signs: Vital Signs - 24 hr 07/22/22 15:38 Temperature 98.3 F Pulse Rate 47 L Respiratory Rate 16 Blood Pressure 133/67 Pulse Oximetry 98 Oxygen Delivery Method Room Air BMI result Body Mass Index 26.6 VSS Appearance: Alert. Oriented X3. No acute distress. Head: normocephalic, superficial abrasion to posterior head, actively bleeding. dried blood in a significant portion of his hair. No large wound or laceration was appreciated Eyes: Pupils equal, round and reactive to light. ENT: Pharynx normal. No tonsillar swelling or exudate. Neck: Normal inspection. Neck supple. CVS: Normal heart rate and rhythm. Pulses normal. Respiratory: No respiratory distress. Breath sounds normal. Skin: Skin warm and dry. Normal skin color. Normal skin turgor. No rashes. Extremities: No lower extremity edema. No joint swelling. Neuro/psych: Oriented X 3. grossly normal, nonfocal Normal speech and cognition. Course Course Course Narrative: RME performed by Princess Menon PA-C. Patient is a 57 year old assigned male at presenting to the emergency department with a scalp laceration. Patient placed back in the waiting room pending room availability. Medications Administered Discontinued Medications Generic Name Dose Route Start Last Admin Trade Name Freq PRN Reason Stop Dose Admin Silver Nitrate 1 appl 07/22/22 17:26 07/22/22 17:39 Silver Nitrate Applicator Stick..Ea. TOPICAL 07/22/22 17:27 1 appl ONCE ONE Administration Medical Decision Making Medical Decision Making MDM Narrative: 57 year old male with a history significant for bipolar disorder, ACS, CAD s/p coronary angioplasty, HDL, vertigo, HOCM, dermatitis, asthma, CKD, obesity presents today with a scratch to the back of his head that has been constantly bleeding for the past few hours. No head trauma or injury. On dual antiplatelet therapy. Not on blood thinners. VSS. Physical exam significant for superficial abrasion to posterior head, actively bleeding. Direct pressure was attempted with no success. Surgicel was a tried with no success. Ultimately a silver nitrate stick was used with complete hemostasis. Patient was observed and no further bleeding was witnesse d. He is stable for discharge home. Differential Diagnosis Differential Diagnoses: The differential diagnosis associated with the present ation includes Superficial abrasion, deep laceration, head wound Independent Historian Clinical information obtained from an independent historian. History obtained from or confirmed by: EMS External Record Review External record reviewed: Outpatient record and Prior outpatient labs Chronic Conditions Patient?s care impacted by: Other ( peripheral vascular disease on dual antiplatelet therapy) Critical Care Time Critical Care Time Critical Care Time: No Discharge Plan Discharge Clinical Impression: Abrasion of scalp Patient Disposition: Home, Self-Care Instructions: Abrasion (ED) Additional Instructions: Do your best not to scratch the back your head. It can cause repeat bleeding. Do not wash her hair for 24 hours. If you do start bleeding again, put direct pressure on the area for at least 15 minutes. If you develop new or worsening symptoms call 911 or come back to the ER for further evaluation. Prescriptions: No Action aspirin [Adult Aspirin Regimen] 81 mg tablet,delayed release (DR/EC) 81 mg PO DAILY Qty: 90 1RF albuterol sulfate 90 mcg/actuation HFA aerosol inhaler 1 puff inhalation Q6-8H PRN (Reason: Shortness Of Breath) 30 Days Qty: 8.5 3RF atorvastatin 80 mg tablet 80 mg PO DAILY Qty: 90 2RF clopidogrel 75 mg tablet 75 mg PO DAILY 90 Days Qty: 90 1RF levothyroxine 25 mcg tablet 25 mcg PO DAILY 90 Days Qty: 90 3RF fexofenadine 180 mg tablet 180 mg PO DAILY 90 Days Qty: 90 2RF nitroglycerin 0.4 mg tablet, sublingual 0.4 mg sublingual Q5M Qty: 20 1RF benztropine 1 mg tablet 1 mg PO BEDTIME lorazepam 1 mg tablet 1 mg PO DAILY PRN lurasidone 20 mg tablet 20 mg PO BEDTIME trazodone 50 mg tablet 50 mg PO BEDTIME PRN metoprolol succinate 25 mg tablet extended release 24 hr 12.5 mg PO DAILY 90 Days Qty: 45 1RF Rx Instructions: Reducing dose to 12.5 mg daily Referrals: Omid Cheung PA-C [Primary Care Provider] -
[2022-07-22 15:38] VITALS: BP 133/67; PULSE 47; RESP 16; TEMP 36.8; O2SAT 98; BMI 26.6
--- NOTE | 2022-07-22 17:00 | PC.NURSE ---
patient lac cleaned with saline and hydrogen peroxide. pt tolerated well.
[2022-07-22] MEDS: Silver Nitrate Applicator STICK..EA. 1 APPL TOPICAL (17:39)
== END 2022-07-22 18:12 | disposition home or self-care (01) ==
PROVIDERS: Emergency Provider Emergency Medicine; PCP Physician Assistant
DX: S00.01XA Abrasion of scalp, initial encounter (principal); X58.XXXA Exposure to other specified factors, initial encounter; Y93.9 Activity, unspecified; Y92.9 Unspecified place or not applicable; Y99.9 Unspecified external cause status; Z79.899 Other long term (current) drug therapy
CPT/HCPCS: 99282; 99283

== ENCOUNTER 2022-08-30 14:05 | Outpatient (AMB) | payer OTHER, SELFPAY ==
--- NOTE | 2022-08-30 14:09 | A.OFFVIS_ITS ---
Intake Vital Signs 08/30/22 14:11 Height 5 ft 6 in Weight 160 lb 14.999 oz BMI 26.0 BP 112/68 Blood Pressure Location Lt brachial Position Sitting Pulse 50 Pulse Source Monitor Intake Visit Reasons: OVERDUE follow up Intake Note: Overdue follow up. Energy Director Required: No Accompanied by: Self / Same As Patient Allergies neff [CHERRIES] Allergy (Unknown, Verified 08/30/22 14:15) digestive issues (only with fresh) gluten [GLUTEN] Allergy (Unknown, Verified 08/30/22 14:15) digestive issues ibuprofen [From MOTRIN] Allergy (Unknown, Verified 08/30/22 14:15) UNKNOWN mayonnaise [MAYONNAISE] Allergy (Unknown, Verified 08/30/22 14:15) digestive issues Penicillins [PENICILLINS] Allergy (Unknown, Verified 08/30/22 14:15) UNKNOWN rosuvastatin [Crestor] Allergy (Unknown, Verified 08/30/22 14:15) unknown soy [SOY] Allergy (Unknown, Verified 08/30/22 14:15) digestive issue Sulfa (Sulfonamide Antibiotics) [SULFA (SULFONAMIDE ANTIBIOTICS)] Allergy (Unknown, Verified 08/30/22 14:15) unknown wheat [WHEAT] Allergy (Unknown, Verified 08/30/22 14:15) digestive issues lamotrigine [LAMOTRIGINE] Adverse Reaction (Intermediate, Verified 08/30/22 14:15) HEADACHES oxycodone [OXYCODONE] Adverse Reaction (Intermediate, Verified 08/30/22 14:15) racing thoughts APPLE JUICE Allergy (Unknown, Uncoded 08/30/22 14:15) digestive issues fresh sridevi cherries Allergy (Unknown, Uncoded 08/30/22 14:15) unknown Medication List - Last Reconciled 08/30/22 by Dago Mcgregor MD albuterol sulfate 90 mcg/actuation 1 puff inhalation Q6-8H PRN 30 days aspirin (Adult Aspirin Regimen) 81 mg PO DAILY atorvastatin 80 mg PO DAILY benztropine 1 mg PO BEDTIME fexofenadine 180 mg PO DAILY 90 days levothyroxine 25 mcg PO DAILY 90 days lorazepam 1 mg PO DAILY PRN lurasidone 20 mg PO BEDTIME metoprolol succinate ER 12.5 mg (1/2 x 25 mg) PO DAILY 90 days nitroglycerin 0.4 mg sublingual Q5M trazodone 50 mg PO BEDTIME PRN HPI HPI Comments History of Present Illness Details 57-year-old gentleman here for follow-up. He was taken for cardiac catheterization after an abnormal stress tests performed for exertional chest tightness. Cardiac catheterization revealed severe proximal LAD stenosis which was treated with a drug-eluting stent with OCT guidance. He has a hypertrophic cardiomyopathy. He underwent cardiac event monitor in 2019 which did not show any PVCs or nonsustained VT. He had a cardiac MRI which showed delayed gadolinium enhancement and he was referred to electrophysiology. He was seen by Dr. Valle and it was felt that he is not high risk for arrhythmia. No ICD was indicated. He continues to smoke half a pack per day. Denying any chest pain or shortness of breath. He recently started seeing a different psychiatrist. He was told that his Seroquel (which he was on 800 mg daily) can be the cause for his hypertriglyceridemia. He has been cutting back on the Seroquel with the help of his psychiatrist and is down to 750 mg daily. He has not had a repeat repeat lipid panel since last year. 08/30/22: Sinus bradycardia 50 beats per minute, normal axis, lateral and inferior T-wave inversions due to underlying hypertrophic cardiomyopathy. QTC 428 milliseconds. Today he returns for follow-up. He has been exercising and losing weight. He is eating organic food. He is still smoking at this stage. He is asking that given the fact that he has lost weight and is exercising can he cut back on his atorvastatin from 80-40 mg. He has no chest pain or shortness of breath. We discussed about smoking cessation again. [facility] Medical History (Updated 08/30/22 @ 14:34 by Dago Mcgregor MD) Bipolar disorder CAD (coronary artery disease) Chronic kidney disease Hypothyroidism Ischemic colitis Non-ST elevation [place] (NSTEMI) Presence of stent in LAD coronary artery Schizoaffective disorder Surgical History History of appendectomy History of cholecystectomy History of heart artery stent History of tonsillectomy S/P cardiac cath Family History Father Liver cancer Monoallelic mutation of MET gene Mother Arthritis Cancer Pacemaker Other Mental health disorder Social History Housing: House Alcohol intake: current Alcohol intake frequency: a few times a week Alcohol type: wine Patient Tobacco Use Status: Current everyday Tobacco user Cigarette Packs Per Day: 0.5 Cigarettes Per Day: 10 Years Smoked: 12 years e-Cigarette/Vaping Use: Currently Using Second Hand Smoke Exposure: Yes Substance Use Type: Marijuana service: No Current occupational status: disabled Cognitive needs: No Hearing needs: No Vision needs: Yes (glasses) Review of Systems Const Denies weakness ENT Denies dizziness Card Denies chest pain, Denies chest pain with activity, Denies syncope, Denies rapid heart rate, Denies pedal edema, Denies edema, Denies leg edema, Denies lightheadedness, Denies palpitations, Denies dyspnea, Denies dyspnea on exertion and Denies orthopnea Resp Denies cough, Denies dyspnea and Denies dyspnea on exertion GI Denies hematochezia and Denies change in stool character Musc Denies abnormal gait, Denies muscle cramps, Denies muscle weakness, Denies numbness, Denies radiating pain into limb and Denies tingling Neuro Denies abnormal gait, Denies dizziness, Denies syncope, Denies numbness, Denies tingling and Denies weakness Endo Denies palpitations Physical Exam Vital Signs: Last Vital Signs Pulse 50 08/30/22 14:11 BP 112/68 08/30/22 14:11 BMI result Body Mass Index 26.0 GENERAL APPEARANCE: in no acute distress, pleasant. NECK: no carotid bruit, no jugular venous distention. SKIN: no suspicious lesions, warm and dry. HEART: no murmurs, regular rate and rhythm. LUNGS: clear to auscultation bilaterally. ABDOMEN: soft, nontender. EXTREMITIES: no edema. PERIPHERAL PULSES: equal. NEUROLOGIC: No gross deficits, AAO X 3 Office Procedures EKG Details: Sinus bradycardia 50 beats per minute, normal axis, lateral and inferior T-wave inversions due to underlying hypertrophic cardiomyopathy. QTC 428 milliseconds. [id number], Complete Assessment & Plan Assessment & Plan (1) Tobacco dependence: Code(s): F17.200 - Nicotine dependence, unspecified, uncomplicated (2) Stable angina: Code(s): I20.8 - Other forms of angina pectoris Plan Pleasant 57-year-old gentleman is here for follow-up. He has background history of coronary artery disease with previous LAD PCI. He is taking aspirin 81 mg daily. His blood pressure control is good. He has not had any recent cholesterol testing. He has lost significant weight with diet and exercise and is asking whether he can cut back on his atorvastatin. I have advised him to do up fasting lipid panel and then we will have a discussion. He continues to smoke. I have explained to him that his acute coronary syndrome was linked with smoking and along with his diet and exercise and other positive things that he is trying to do with his life he definitely needs to stop smoking. Follow-up in 3 months. Thank you for allowing me to participate in the care of your patient. Please feel free to contact me if you have any questions. Orders: Orders Lipid Panel Today I20.8 - Other forms of angina pectoris Coding Level of Care Code Est Pt Level 4 (82616) Diagnoses Tobacco dependence F17.200 Stable angina I20.8 CPT Codes EKG - CPT: 28630-[id number], Complete ([id number])
[2022-08-30 14:11] VITALS: BP 112/68; PULSE 50; BMI 26.0
== END 2022-08-30 14:38 | disposition home or self-care (01) ==
PROVIDERS: Visit Provider Internal Medicine Cardiovascular Disease
DX: F17.200 Nicotine dependence, unspecified, uncomplicated (principal); I20.8 Other forms of angina pectoris
CPT/HCPCS: 93010; 99214

== ENCOUNTER → 2022-08-30 14:05 | Outpatient (BNVA) | payer OTHER, SELFPAY | PROVIDERS: Visit Provider Internal Medicine Cardiovascular Disease | DX: I25.118 Atherosclerotic heart disease of native coronary artery with other forms of angina pectoris (principal); I44.0 Atrioventricular block, first degree; I42.2 Other hypertrophic cardiomyopathy; U07.0 Vaping-related disorder; F17.210 Nicotine dependence, cigarettes, uncomplicated; Z98.890 Other specified postprocedural states; Z95.5 Presence of coronary angioplasty implant and graft; Z79.82 Long term (current) use of aspirin | CPT/HCPCS: 93005; 99212 ==

== ENCOUNTER 2022-10-26 12:18 | Outpatient (REF) | payer OTHER, SELFPAY ==
[2022-10-26 14:43] LABS: Cholesterol 133 mg/dL (<200); HDL Cholesterol 43 mg/dL (>40); LDL Cholesterol Calculated 76 mg/dL (<100); Triglycerides 71 mg/dL (<150)
== END 2022-10-26 12:19 | disposition home or self-care (01) ==
LOC: HO.LAB 12:18
PROVIDERS: PCP Physician Assistant; Visit Provider Internal Medicine Cardiovascular Disease
DX: I20.8 Other forms of angina pectoris (principal)
CPT/HCPCS: 36415; 80061

== ENCOUNTER 2022-12-13 13:34 | Outpatient (AMB) | payer OTHER, SELFPAY ==
--- NOTE | 2022-12-13 13:44 | MHC.OFFVIS ---
Intake Vital Signs 12/13/22 13:46 Height 5 ft 6 in Weight 160 lb 0.889 oz BMI 25.8 BP 106/56 L Blood Pressure Location Lt brachial Position Sitting Pulse 47 L Intake Visit Reasons: 3 mth s/p lipids Intake Note: 3 month follow up Senior Solutions Consultant Required: No Accompanied by: Self / Same As Patient Allergies neff [CHERRIES] Allergy (Unknown, Verified 12/13/22 13:46) digestive issues (only with fresh) gluten [GLUTEN] Allergy (Unknown, Verified 12/13/22 13:46) digestive issues ibuprofen [From MOTRIN] Allergy (Unknown, Verified 12/13/22 13:46) UNKNOWN mayonnaise [MAYONNAISE] Allergy (Unknown, Verified 12/13/22 13:46) digestive issues Penicillins [PENICILLINS] Allergy (Unknown, Verified 12/13/22 13:46) UNKNOWN rosuvastatin [Crestor] Allergy (Unknown, Verified 12/13/22 13:46) unknown soy [SOY] Allergy (Unknown, Verified 12/13/22 13:46) digestive issue Sulfa (Sulfonamide Antibiotics) [SULFA (SULFONAMIDE ANTIBIOTICS)] Allergy (Unknown, Verified 12/13/22 13:46) unknown wheat [WHEAT] Allergy (Unknown, Verified 12/13/22 13:46) digestive issues lamotrigine [LAMOTRIGINE] Adverse Reaction (Intermediate, Verified 12/13/22 13:46) HEADACHES oxycodone [OXYCODONE] Adverse Reaction (Intermediate, Verified 12/13/22 13:46) racing thoughts APPLE JUICE Allergy (Unknown, Uncoded 12/13/22 13:46) digestive issues fresh sridevi cherries Allergy (Unknown, Uncoded 12/13/22 13:46) unknown Medication List - Last Reconciled 12/13/22 by Dago Mcgregor MD albuterol sulfate 90 mcg/actuation 1 puff inhalation Q6-8H PRN 30 days aspirin (Adult Aspirin Regimen) 81 mg PO DAILY atorvastatin 80 mg PO DAILY benztropine 1 mg PO BEDTIME fexofenadine 180 mg PO DAILY 90 days levothyroxine 25 mcg PO DAILY 90 days lorazepam 1 mg PO DAILY PRN lurasidone 20 mg PO BEDTIME metoprolol succinate ER 12.5 mg (1/2 x 25 mg) PO DAILY 90 days nitroglycerin 0.4 mg sublingual Q5M trazodone 50 mg PO BEDTIME PRN HPI HPI Comments History of Present Illness Details 57-year-old gentleman here for follow-up. He was taken for cardiac catheterization after an abnormal stress tests performed for exertional chest tightness. Cardiac catheterization revealed severe proximal LAD stenosis which was treated with a drug-eluting stent with OCT guidance. He has a hypertrophic cardiomyopathy. He underwent cardiac event monitor in 2019 which did not show any PVCs or nonsustained VT. He had a cardiac MRI which showed delayed gadolinium enhancement and he was referred to electrophysiology. He was seen by Dr. Valle and it was felt that he is not high risk for arrhythmia. No ICD was indicated. He continues to smoke half a pack per day. Denying any chest pain or shortness of breath. He recently started seeing a different psychiatrist. He was told that his Seroquel (which he was on 800 mg daily) can be the cause for his hypertriglyceridemia. He has been cutting back on the Seroquel with the help of his psychiatrist and is down to 750 mg daily. He has not had a repeat repeat lipid panel since last year. 08/30/22: Sinus bradycardia 50 beats per minute, normal axis, lateral and inferior T-wave inversions due to underlying hypertrophic cardiomyopathy. QTC 428 milliseconds. Today he returns for follow-up. He has been exercising and losing weight. He is eating organic food. He is still smoking at this stage. He is asking that given the fact that he has lost weight and is exercising can he cut back on his atorvastatin from 80-40 mg. He has no chest pain or shortness of breath. We discussed about smoking cessation again. 12/13/2022: He returns for follow-up. He has stop smoking cigarettes but has been smoking cigars and smokes marijuana. He is denying any chest tightness or significant shortness of breath. Blood pressure control is good. He has been taking the atorvastatin. His last LDL cholesterol was good. [facility] Medical History (Updated 12/13/22 @ 15:10 by Dago Mcgregor MD) Hypothyroidism Bipolar disorder Presence of stent in LAD coronary artery Non-ST elevation [place] (NSTEMI) Chronic kidney disease Ischemic colitis Schizoaffective disorder CAD (coronary artery disease) Surgical History S/P cardiac cath History of heart artery stent History of cholecystectomy History of appendectomy History of tonsillectomy Family History Father Liver cancer Monoallelic mutation of MET gene Mother Arthritis Cancer Pacemaker Other Mental health disorder Social History Housing: House Alcohol intake: current Alcohol intake frequency: a few times a week Alcohol type: wine Patient Tobacco Use Status: Current everyday Tobacco user Cigarette Packs Per Day: 0.5 Cigarettes Per Day: 10 Years Smoked: 12 years e-Cigarette/Vaping Use: Currently Using Second Hand Smoke Exposure: Yes Substance Use Type: Marijuana service: No Current occupational status: disabled Cognitive needs: No Hearing needs: No Vision needs: Yes (glasses) Review of Systems Const Denies weakness ENT Denies dizziness Card Denies chest pain, Denies chest pain with activity, Denies syncope, Denies rapid heart rate, Denies pedal edema, Denies edema, Denies leg edema, Denies lightheadedness, Denies palpitations, Denies dyspnea, Denies dyspnea on exertion and Denies orthopnea Resp Denies cough, Denies dyspnea and Denies dyspnea on exertion GI Denies hematochezia and Denies change in stool character Musc Denies abnormal gait, Denies muscle cramps, Denies muscle weakness, Denies numbness, Denies radiating pain into limb and Denies tingling Neuro Denies abnormal gait, Denies dizziness, Denies syncope, Denies numbness, Denies tingling and Denies weakness Endo Denies palpitations Physical Exam Vital Signs: Last Vital Signs Pulse 47 L 12/13/22 13:46 BP 106/56 L 12/13/22 13:46 BMI result Body Mass Index 25.8 GENERAL APPEARANCE: in no acute distress, pleasant. NECK: no carotid bruit, no jugular venous distention. SKIN: no suspicious lesions, warm and dry. HEART: Systolic murmur all over the precordium, regular rate and rhythm. LUNGS: clear to auscultation bilaterally. ABDOMEN: soft, nontender. EXTREMITIES: no edema. PERIPHERAL PULSES: equal. NEUROLOGIC: No gross deficits, AAO X 3 Assessment & Plan Assessment & Plan (1) Stable angina: Code(s): I20.8 - Other forms of angina pectoris (2) Hypertrophic cardiomyopathy: Code(s): I42.2 - Other hypertrophic cardiomyopathy Plan 57-year-old gentleman here for follow-up. Has known history of coronary disease and underwent LAD PCI in the past. He has been stable since then. He has stop smoking seizures were is smoking cigar and marijuana. He has also background of hypertrophic cardiomyopathy had was seen by electrophysiology in the past and was deemed low risk for sudden cardiac and ICD was not implanted. Overall has been doing well. He is active and is exercising regularly without any exertional symptoms. Same medications for now. See us back in 6 months. Thank you for allowing me to participate in the care of your patient. Please feel free to contact me if you have any questions. Coding Level of Care Code Est Pt Level 4 (93973) Diagnoses Stable angina I20.8 Hypertrophic cardiomyopathy I42.2
[2022-12-13 13:46] VITALS: BP 106/56; PULSE 47; BMI 25.8
== END 2022-12-13 14:23 | disposition home or self-care (01) ==
PROVIDERS: PCP Physician Assistant; Visit Provider Internal Medicine Cardiovascular Disease
DX: I20.8 Other forms of angina pectoris (principal); I42.2 Other hypertrophic cardiomyopathy
CPT/HCPCS: 99214

== ENCOUNTER → 2022-12-13 13:34 | Outpatient (BNVA) | payer OTHER, SELFPAY | PROVIDERS: PCP Physician Assistant; Visit Provider Internal Medicine Cardiovascular Disease | DX: I20.89 Other forms of angina pectoris (principal); I42.2 Other hypertrophic cardiomyopathy | CPT/HCPCS: 99212 ==

== ENCOUNTER 2023-01-26 13:20 | Outpatient (AMB) | payer OTHER, SELFPAY ==
[2023-01-26 14:19] VITALS: BP 110/70; PULSE 70; TEMP 36.9; O2SAT 97; BMI 25.2
--- NOTE | 2023-01-26 14:19 | MHC.OFFWIV ---
Intake Vital Signs 01/26/23 14:19 Height 5 ft 6 in Weight 156 lb BMI 25.2 BP 110/70 Blood Pressure Location Rt brachial Position Sitting Pulse 70 Pulse Source Pulse Oximeter Temp 98.4 F Temp Source Temporal Artery Scan Pulse Oximetry (%) 97 Oxygen Delivery Method Room Air Intake Visit Reasons: EST/ congestion (lobby masked) Intake Note: pt is here today for congestion started yesterday Patient Tobacco Use Status: Current everyday Tobacco user Allergies neff [CHERRIES] Allergy (Unknown, Verified 01/26/23 14:24) digestive issues (only with fresh) gluten [GLUTEN] Allergy (Unknown, Verified 01/26/23 14:24) digestive issues ibuprofen [From MOTRIN] Allergy (Unknown, Verified 01/26/23 14:24) UNKNOWN mayonnaise [MAYONNAISE] Allergy (Unknown, Verified 01/26/23 14:24) digestive issues Penicillins [PENICILLINS] Allergy (Unknown, Verified 01/26/23 14:24) UNKNOWN rosuvastatin [Crestor] Allergy (Unknown, Verified 01/26/23 14:24) unknown soy [SOY] Allergy (Unknown, Verified 01/26/23 14:24) digestive issue Sulfa (Sulfonamide Antibiotics) [SULFA (SULFONAMIDE ANTIBIOTICS)] Allergy (Unknown, Verified 01/26/23 14:24) unknown wheat [WHEAT] Allergy (Unknown, Verified 01/26/23 14:24) digestive issues lamotrigine [LAMOTRIGINE] Adverse Reaction (Intermediate, Verified 01/26/23 14:24) HEADACHES oxycodone [OXYCODONE] Adverse Reaction (Intermediate, Verified 01/26/23 14:24) racing thoughts APPLE JUICE Allergy (Unknown, Uncoded 12/13/22 13:46) digestive issues fresh sridevi cherries Allergy (Unknown, Uncoded 12/13/22 13:46) unknown Do you need a note to return to daycare/school/sports/work: Yes HPI HPI Comments History of Present Illness Details This is a 57-year-old male who presented to the office complaining of viral URI symptoms x2 days. Patient complaining of nasal/sinus congestion, dry cough, myalgias, sore throat, and bilateral otalgia. He denies any fevers or chills. [facility] Medical History (Updated 12/13/22 @ 15:10 by Dago Mcgregor MD) Hypothyroidism Bipolar disorder Presence of stent in LAD coronary artery Non-ST elevation [place] (NSTEMI) Chronic kidney disease Ischemic colitis Schizoaffective disorder CAD (coronary artery disease) Surgical History S/P cardiac cath History of heart artery stent History of cholecystectomy History of appendectomy History of tonsillectomy Family History Father Liver cancer Monoallelic mutation of MET gene Mother Arthritis Cancer Pacemaker Other Mental health disorder Social History Housing: House Alcohol intake: current Alcohol intake frequency: a few times a week Alcohol type: wine Patient Tobacco Use Status: Current everyday Tobacco user Cigarette Packs Per Day: 0.5 Cigarettes Per Day: 10 Years Smoked: 12 years e-Cigarette/Vaping Use: Currently Using Second Hand Smoke Exposure: Yes Substance Use Type: Marijuana service: No Current occupational status: disabled Cognitive needs: No Hearing needs: No Vision needs: Yes (glasses) Review of Systems Const All systems reviewed & are unremarkable except as noted in HPI and below Reports no additional complaints Eyes Reports no additional complaints ENT Reports no additional complaints Card Reports no additional complaints Resp Reports no additional complaints GI Reports no additional complaints Reports no additional complaints Musc Reports no additional complaints Skin/Breast Reports system reviewed and no additional complaints, except as documented Neuro Reports no additional complaints Psych Reports no additional complaints Endo Reports no additional complaints Jj/Lymph Reports no additional complaints Aller/Immun Reports no additional complaints Physical Exam Vital Signs: Last Vital Signs Temp 98.4 F 01/26/23 14:19 Pulse 70 01/26/23 14:19 BP 110/70 01/26/23 14:19 Pulse Ox 97 01/26/23 14:19 Oxygen Delivery Method Room Air 01/26/23 14:19 BMI result Body Mass Index 25.2 Const Other: Vital signs reviewed. Constitutional: Non-toxic appearing. No acute distress. Well-developed and well-nourished. HEENT: Normocephalic and atraumatic. Tympanic membranes without erythema, edema, or bulging bilaterally. External auditory canals without erythema or edema bilaterally. Moist mucous membranes. No pharyngeal erythema or exudates. Skin: Warm and dry. No rashes or lesions noted. Neck: Full and painless range of motion. No cervical lymphadenopathy. Cardio: Regular rate and rhythm. No murmurs, gallops, or rubs. No lower extremity edema. No JVD. Pulmonary: No respiratory distress. No accessory muscle usage. Clear to auscultation bilaterally without wheezing, crackles, or rhonchi. Gastrointestinal: Soft, nontender, and nondistended in all 4 quadrants. Musculoskeletal: Normal range of motion in joints throughout the body. No deformity or other signs of injury. Neuro: Alert and oriented x4. Cranial nerves 2-12 grossly intact. No focal deficits appreciated. Psych: Normal mood and affect. Assessment & Plan Assessment & Plan (1) Viral URI: Code(s): J06.9 - Acute upper respiratory infection, unspecified Plan: This is a 57-year-old male presenting to the office complaining of viral URI symptoms x2 days. His physical exam is benign, his vital signs are stable, and he is overall nontoxic appearing. Patient presenting with signs and symptoms most consistent with acute viral upper respiratory tract infection. COVID/flu/RSV sent. Recommended symptomatic management including rest, increased fluids, advil/tylenol for pain/fever, and over the counter throat lozenges/decongestants. Patient advised to follow up here or go to the emergency room for worsening/persistent symptoms. Orders: Orders SARS-CoV2/FLU/RSV Today R09.89 - Other specified symptoms and signs involving the circulatory and respiratory systems Coding Level of Care Code Est Pt Level 3 (07768) Diagnoses Viral URI J06.9
== END 2023-01-26 15:27 | disposition home or self-care (01) ==
PROVIDERS: PCP Physician Assistant; Visit Provider Physician Assistant Medical
DX: J06.9 Acute upper respiratory infection, unspecified (principal)
CPT/HCPCS: 99213

== ENCOUNTER 2023-01-26 16:56 | Outpatient (REF) | payer OTHER, SELFPAY ==
[2023-01-26 18:04] LABS: Influenza A PCR NEGATIVE (Negative); Influenza B PCR NEGATIVE (Negative); Resp Syncy Virus RNA Qual PCR NEGATIVE (Negative); SARS COV2 PCR INHOUSE NEGATIVE (Negative)
== END 2023-01-26 16:57 | disposition home or self-care (01) ==
LOC: HO.HMGCLNP 16:56
PROVIDERS: Visit Provider Physician Assistant Medical
DX: Z11.52 Encounter for screening for COVID-19 (principal); Z20.822 Contact with and (suspected) exposure to COVID-19; R09.89 Other specified symptoms and signs involving the circulatory and respiratory systems
CPT/HCPCS: 0241U

== ENCOUNTER 2023-06-18 11:10 | Outpatient (AMB) | payer OTHER, SELFPAY ==
--- NOTE | 2023-06-18 11:46 | MHC.PC.OV ---
Vital Signs 06/18/23 11:48 Height 5 ft 3 in Weight 153 lb 2 oz BMI 27.1 BP 98/60 Blood Pressure Location Lt brachial Position Sitting Pulse 44 L Pulse Source Pulse Oximeter Pulse Oximetry (%) 98 Oxygen Delivery Method Room Air Intake Visit Reasons: Annual Exam Intake Note: Patient is here today for a physical. 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 Accompanied by: Self / Same As Patient Allergies neff [CHERRIES] Allergy (Unknown, Verified 06/18/23 12:09) digestive issues (only with fresh) gluten [GLUTEN] Allergy (Unknown, Verified 06/18/23 12:09) digestive issues ibuprofen [From MOTRIN] Allergy (Unknown, Verified 06/18/23 12:09) UNKNOWN mayonnaise [MAYONNAISE] Allergy (Unknown, Verified 06/18/23 12:09) digestive issues Penicillins [PENICILLINS] Allergy (Unknown, Verified 06/18/23 12:09) UNKNOWN rosuvastatin [Crestor] Allergy (Unknown, Verified 06/18/23 12:09) unknown soy [SOY] Allergy (Unknown, Verified 06/18/23 12:09) digestive issue Sulfa (Sulfonamide Antibiotics) [SULFA (SULFONAMIDE ANTIBIOTICS)] Allergy (Unknown, Verified 06/18/23 12:09) unknown wheat [WHEAT] Allergy (Unknown, Verified 06/18/23 12:09) digestive issues lamotrigine [LAMOTRIGINE] Adverse Reaction (Intermediate, Verified 06/18/23 12:09) HEADACHES oxycodone [OXYCODONE] Adverse Reaction (Intermediate, Verified 06/18/23 12:09) racing thoughts APPLE JUICE Allergy (Unknown, Uncoded 06/18/23 11:48) digestive issues fresh sridevi cherries Allergy (Unknown, Uncoded 06/18/23 11:48) unknown Medication List - Last Reconciled 06/18/23 by Omid Cheung PA-C albuterol sulfate 90 mcg/actuation 1 puff inhalation Q6-8H PRN 30 days aspirin 81 mg PO DAILY atorvastatin 80 mg PO DAILY benztropine mg PO fexofenadine 180 mg PO DAILY 90 days levothyroxine 25 mcg PO DAILY 90 days lorazepam 1 mg PO DAILY PRN lurasidone 20 mg PO BEDTIME metoprolol succinate ER 12.5 mg (1/2 x 25 mg) PO DAILY 90 days nitroglycerin 0.4 mg sublingual Q5M trazodone 50 mg PO BEDTIME PRN Tobacco use date assessed: 06/18/23 Dental Screening Dental Screen Date: 06/18/23 Did you have a dental visit in the last 12 months?: Yes Did you have a dental problem in the last 6 months where you did not have access to dental care?: No Was dental information given to patient?: Patient has dentist HPI Annual Exam HPI Details Patient is a 58-year-old male here today for annual physical. Patient has a past medical history significant for obesity, hyperlipidemia, CKD, hypertrophic cardiomyopathy, tobacco dependency, schizoaffective disorder, major depressive disorder, anxiety disorder, coronary artery disease with a history of stent placement in his LAD. .. Schizoaffective disorder/bipolar disorder: He is seeing a therapist and psychiatrist. Has been able to get off alot of mental health meds. Has lost a significant amount of weight since reducing his mental health medications. He now has a new partner that helps him with his mental health as well. .. Coronary artery disease: Has lost follow-up with ramp boss and is looking to reestablish with [facility].. Has been making extensive lifestyle modifications and has lost a lot of weight. Otherwise he denies any further chest discomfort, palpitations, dizziness or headaches. Unfortunately continues to smoke 4-5 cigars per day, he does understand that smoking is a large risk factor for recurrent cardiovascular disease and will continue to work on reducing his smoking. ---> of night noted bradycardia and hypotension today in office. He is fairly asymptomatic though does feeling somewhat fatigued at times and even did have a syncopal episode few months back where he fell and injured his coccyx. .. Hypothyroid: Patient continues on levothyroxine 25 mcg with good effect. Recheck TSH to assure normal. Patient has been able to lose a lot of weight with lifestyle modifications recently. Vaccines: Up-to-date with tetanus, shingles, COVID, pneumonia vaccine Colon cancer screening: did have colonoscopy 2019 is signs symptoms of ischemic colitis [facility] Medical History (Updated 06/19/23 @ 07:45 by Omid Cheung PA-C) Hypothyroidism Bipolar disorder Presence of stent in LAD coronary artery Chronic kidney disease Ischemic colitis Schizoaffective disorder CAD (coronary artery disease) Surgical History S/P cardiac cath History of heart artery stent History of cholecystectomy History of appendectomy History of tonsillectomy Family History (Updated 06/18/23 @ 12:13 by Omid Cheung PA-C) Father Liver cancer Monoallelic mutation of MET gene Mother Arthritis Cancer Pacemaker Sister Parkinson disease Other Mental health disorder Social History (Updated 06/18/23 @ 12:14 by Omid Cheung PA-C) Housing: House Alcohol intake: current Alcohol intake frequency: a few times a week Alcohol type: wine Patient Tobacco Use Status: Current everyday Tobacco user Tobacco use type: Cigar Cigarette Packs Per Day: 0.5 Cigarettes Per Day: 10 Years Smoked: 12 years e-Cigarette/Vaping Use: Currently Using Second Hand Smoke Exposure: Yes Substance Use Type: Marijuana service: No Current occupational status: employed 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 1. Little interest or pleasure in doing things: not at all 2. Feeling down, depressed, or hopeless: not at all 3. Trouble falling or staying asleep, or sleeping too much: not at all 4. Feeling tired or having little energy: not at all 5. Poor appetite or overeating: not at all 6. Feeling bad about yourself - or that you are a failure or have let yourself or your family down: not at all 7. Trouble concentrating on things, such as reading the newspaper or watching television: not at all 8. Moving or speaking so slowly that other people could have noticed. Or the opposite - being so fidgety or restless that you have been moving around a lot more than usual: not at all 9. Thoughts that you would be better off or of hurting yourself in some way: not at all Total score: 0 Depression Screening Interpretation: Negative Depression Screening Done: Yes 42249 - PHQ-9 Billing: Yes Source: Developed by Drs. Rome Burdick, Jayda Lizarraga, Irvin Siddiqi and colleagues, with an educational sophie from [employer]. Thrive Questionnaire Date Thrive assessed: 06/18/23 I am a: Patient What is your living situation today?: I have a steady place to live Within the past 12 months, did the food you bought not last and you didn't have the money to get more?: Never true Within the past 12 months, did you worry whether your food would run out before you got money to buy more?: Never true Do you have trouble paying for medicines?: No Do you have trouble getting transportation to medical appointments?: No Do you have trouble paying your heating and electricity bill?: No Do you have trouble taking care of your child, family member or friend?: No Do you have trouble with day-to-day activities such as bathing, preparing meals, shopping, managing finances, etc.?: No Are you currently unemployed and looking for a job?: No Are you interested in more education?: No Please select the resources that you would like help with: None Currently or been in a relationship where the following occur: no concerns reported THRIVE Score: 0 AUDIT C Alcohol Use Questionnaire (AUDIT-C) 1. How often do you have a drink containing alcohol?: 4 or more times a week 2. How many drinks containing alcohol do you have on a typical day when you are drinking?: 1 or 2 3. How often do you have six or more drinks on one occasion?: Never Total Score: 4 ALEXIS-7 AMB Questionnaire ALEXIS-7 Date ALEXIS - 7 assessed: 06/18/23 Feeling nervous, anxious, or on edge: 2 = More than half the days Not being able to stop or control worryin = More than half the days Worrying too much about different things: 2 = More than half the days Trouble relaxin = Not at all Being so restless that it is hard to sit still: 1 = Several days Becoming easily annoyed or irritable: 0 = Not at all Feeling afraid as if something awful might happen: 2 = More than half the days Total ALEXIS-7 score (0-4 normal; 5-9 mild; 10-14 moderate; 15-21 severe): 9 Source: Developed by Drs. Rome Burdick, Jayda Lizarraga, Irvin Siddiqi and colleagues, with an educational sophie from [employer] ALEXIS-7 Assessment Billing ALEXIS-7 Assessment Tool: ALEXIS-7 Assessment 73460 Review of Systems Const Denies body aches, Denies chills, Denies excessive sweating, Denies fatigue, Denies fever(s) and Denies headache(s) Eyes Denies blurry vision ENT Denies dysphagia, Denies vertigo, Denies dizziness, Denies headache(s), Denies hearing loss and Denies tinnitus Card Denies chest pain, Denies chest pain with activity, Denies syncope, Denies irregular heart rhythm and Denies dyspnea Resp Denies chest congestion, Denies cough, Denies hemoptysis, Denies dyspnea and Denies wheezing GI Denies abdominal pain, Denies melena, Denies hematochezia, Denies coffee ground emesis, Denies dysphagia, Denies diarrhea, Denies nausea and Denies vomiting Denies difficulty urinating, Denies dysuria, Denies urinary frequency, Denies urinary hesitancy and Denies urinary urgency Musc Denies arthralgias, Denies limited range of motion, Denies muscle cramps and Denies muscle weakness Skin/Breast Denies rash and Denies skin ulcer Neuro Denies Abnormal speech present, Denies confusion, Denies vertigo, Denies dizziness, Denies syncope, Denies headache(s), Denies memory loss and Denies seizure-like activity Psych Denies anxiety, Denies confusion, Denies depression, Denies memory loss, Denies panic attacks and Denies paranoia Endo Denies excessive sweating, Denies fatigue, Denies flushing, Denies polydipsia and Denies polyuria Aller/Immun Denies wheezing Physical exam (Primary Care) Vital Signs: Last Vital Signs Pulse 44 L 06/18/23 11:48 BP 98/60 06/18/23 11:48 Pulse Ox 98 06/18/23 11:48 Oxygen Delivery Method Room Air 06/18/23 11:48 BMI result Body Mass Index 27.1 Tobacco/Smoking Status: Tobacco use Status Tobacco use date assessed 06/18/23 06/18/23 11:56 Patient Tobacco Use Status Current everyday Tobacco 06/18/23 12:14 Tobacco use type Cigar 06/18/23 12:14 e-Cigarette/Vaping Use Currently Using 06/18/23 12:14 PHQ-9: PHQ-9 Score PHQ-9: Total score 0 06/18/23 12:11 Depression Screening Interpretation: Negative Thrive Assessment: Date of Thrive Assessment Date Thrive assessed 06/18/23 06/18/23 11:56 Currently or been in a relationship where the following occur: no concerns reported Const Other: Significant weight loss noted General: cooperative, comfortable, no acute distress, alert and awake; No confusion Orientation/consciousness: oriented to person, oriented to place, patient oriented x3 and No confusion HENMT Head: Yes normocephalic Ears: external ears normal and TM's normal bilaterally Face and sinus: No sinus tenderness Mouth: Normal oral and palatal mucosa present and tongue normal Teeth and gingiva: dentition normal and gingiva normal Throat: Yes posterior oropharynx normal, Yes tonsils normal and Yes uvula midline Eyes Conjunctivae: conjunctivae normal Sclerae: sclerae normal Pupils: Equal, round and reactive pupils present EOM: EOMs intact bilaterally Direct Ophthalmoscopy: No no photophobia Neck Neck: Yes no lymphadenopathy, No tender and Yes no JVD Thyroid: Thyroid normal Carotids: no bruits Chest Chest palpation & inspection: no tenderness Resp Effort & Inspection: normal respiratory effort, no audible wheezes, not labored and no stridor Auscultation: no crackles, no rales, no rhonchi and no wheezes Cardio Jugular venous distension: no JVD Rate: regular rate, not bradycardic and not tachycardic Rhythm: regular rhythm Bruits: no carotid bruits Peripheral pulses: Peripheral pulses 2+ throughout GI Inspection: Yes normal to inspection, No abdominal wall ecchymosis and No visible herniation Palpation (GI): Soft to palpation, nontender, no guarding, not rigid and No hepatosplenomegaly present Auscultation: normoactive bowel sounds General: Yes no CVA tenderness Back/Spine/Pelvis Back: no CVA tenderness and No back tenderness Cervical Spine: cervical ROM normal Thoracic/Lumbar Spine: thoracic and lumbar spine normal to inspection, straight leg raise negative bilaterally, No thoraco-lumbar ROM limited and No lumbar spinal tenderness Skin Lesions: no lesions Rashes: no rashes Wounds: no wounds Neuro General: oriented to person, oriented to place, patient oriented x3, CN's II-XI intact bilaterally and No confusion Cranial nerves: Yes Equal, round and reactive pupils present and Yes Normal accommodation reflex present Cognition (Neuro): normal cognition Speech: No Abnormal speech present Gait exam (Neuro): Normal gait present Motor exam (neuro): 5/5 motor strength present throughout Extrem Right upper extremity: full ROM; no cyanosis Left upper extremity: full ROM; no cyanosis Right lower extremity: no edema Left lower extremity: no edema Psych Appearance: grossly normal Mental Status: mental status grossly normal Affect: normal affect Attitude: cooperative Thought process: Normal thought process present Assessment and Plan Assessment & Plan (1) Annual physical exam: Code(s): Z00.00 - Encounter for general adult medical examination without abnormal findings (2) CAD (coronary artery disease): Code(s): I25.10 - Atherosclerotic heart disease of [place] coronary artery without angina pectoris Qualifiers: Associated angina: without angina Coronary Disease-Associated Artery/Lesion type: bypass graft [place] vs. transplanted heart: [place] heart Qualified Code(s): I25.810 - Atherosclerosis of coronary artery bypass graft(s) without angina pectoris Plan: Patient has extensive coronary artery disease and has stent placement in LAD. Has lost his follow-up with ramp boss and is willing to reestablish care. He continues on dual anti-platelet therapy at this time with clopidogrel and aspirin. Also continues on high-dose statin therapy and will get fasting lipids to assure appropriate LDL. Otherwise denies any recent chest discomfort, shortness of breath . (3) Bipolar disorder: Code(s): F31.9 - Bipolar disorder, unspecified Qualifiers: Active/Remission status: in partial remission Most recent bipolar episode type: depressed Qualified Code(s): F31.75 - Bipolar disorder, in partial remission, most recent episode depressed Plan: Again patient followed by psychiatrist and mental health therapist whom he really likes. He has been able to get off of a lot of mental health medications and now feels much more stable. Has been able to lose a significant amount of weight since reducing his doses of mental health medication. (4) HLD (hyperlipidemia): Code(s): E78.5 - Hyperlipidemia, unspecified Qualifiers: Hyperlipidemia type: mixed hyperlipidemia Qualified Code(s): E78.2 - Mixed hyperlipidemia Plan: Again will continue to follow lipid panel with goal LDL to be below 70. (5) CKD (chronic kidney disease) stage 3, GFR 30-59 ml/min: Code(s): N18.30 - Chronic kidney disease, stage 3 unspecified Qualifiers: Chronic kidney disease stage 3 subtype: unspecified whether 3a or 3b Qualified Code(s): N18.30 - Chronic kidney disease, stage 3 unspecified Plan: Patient has a history of CKD stage 3. Will continue to follow renal function and continue to avoid any nephrotoxins. (6) Tobacco dependence: Code(s): F17.200 - Nicotine dependence, unspecified, uncomplicated Plan: Patient does understand he needs to quit smoking, offered nicotine replacement therapy though patient declines. He will work on weaning his cigar smoking on his own. (7) BPH (benign prostatic hyperplasia): Code(s): N40.0 - Benign prostatic hyperplasia without lower urinary tract symptoms Qualifiers: Lower urinary tract symptom detail: weak urinary stream Lower urinary tract symptom presence: symptoms present Qualified Code(s): N40.1 - Benign prostatic hyperplasia with lower urinary tract symptoms; R39.12 - Poor urinary stream Plan: Has noted some weak urinary stream. Will recheck a PSA. He is willing to try Flomax (8) Hypotension: Code(s): I95.9 - Hypotension, unspecified Qualifiers: Hypotension type: hypotension due to drug Qualified Code(s): I95.2 - Hypotension due to drugs Plan: Have noted low blood pressure and low heart rates today in office. He does report some time being symptomatic with fatigue and had an syncopal episode. Will hold his beta-danielle at this time as he has lost significant amount weight since regionally being placed on this medication. (9) Tailbone injury: Code(s): S39.92XA - Unspecified injury of lower back, initial encounter Qualifiers: Encounter type: subsequent encounter Qualified Code(s): S39.92XD - Unspecified injury of lower back, subsequent encounter Plan: Secondary to a fall. Still has pain while sitting in positions. He is interested in getting a coccyx x-ray. (10) Foot callus: Code(s): L84 - Corns and callosities Plan: Would like to see a senior quantity surveyor for foot care (11) Hypertrophic cardiomyopathy: Code(s): I42.2 - Other hypertrophic cardiomyopathy Plan: Was followed by Cardiology though has lost follow-up. He plans on reestablishing care. Likely needs a new echocardiogram for surveillance of his hypertrophic cardiomyopathy. Otherwise does not have any overt signs of Congestive heart failure. (12) Schizoaffective disorder: Code(s): F25.9 - Schizoaffective disorder, unspecified Qualifiers: Schizoaffective disorder type: depressive Qualified Code(s): F25.1 - Schizoaffective disorder, depressive type Plan: Patient followed by Psychiatry and is stable on his current mental health medications. Does have lorazepam available to him for high points of anxiety symptoms. Orders: Orders Lipid Panel 06/18/23 E78.2 - Mixed hyperlipidemia Prostate Specific Antigen Scr 06/18/23 E78.2 - Mixed hyperlipidemia, Z12.5 - Encounter for screening for malignant neoplasm of prostate TSH reflex Free T4 06/18/23 E03.9 - Hypothyroidism, unspecified XR sacrum coccyx min 2V 06/18/23 S39.92XD - Unspecified injury of lower back, subsequent encounter Comprehensive [place]. Panel Fast 06/18/23 I25.810 - Atherosclerosis of coronary artery bypass graft(s) without angina pectoris Complete Blood Count no Diff 06/18/23 I25.810 - Atherosclerosis of coronary artery bypass graft(s) without angina pectoris Referrals Podiatry Referral L84 - Corns and callosities Medications: New tamsulosin 0.4 mg PO DAILY 90 days 90 caps 1RF N40.1 - Benign prostatic hyperplasia with lower urinary tract symptoms, R39.12 - Poor urinary stream Refilled atorvastatin 80 mg PO DAILY 90 tabs 2RF E78.5 - Hyperlipidemia, unspecified On Hold metoprolol succinate ER Hold Comment: Doctor's Order 12.5 mg (1/2 x 25 mg) PO DAILY 90 days 45 tabs 1RF I25.810 - Atherosclerosis of coronary artery bypass graft(s) without angina pectoris Patient Instructions: Goal: LDL to remain below 70 Barriers: Adherence to healthy eating habits and physical activity. Coding Level of Care Code Est Pt Prev Care 40-64y(72401) Diagnoses Annual physical exam Z00.00 Coronary artery disease involving coronary bypass graft of [place] heart without angina pectoris I25.810 Associated angina: without angina Coronary Disease-Associated Artery/Lesion type: bypass graft [place] vs. transplanted heart: [place] heart Bipolar disorder, in partial remission, most recent episode depressed F31.75 Active/Remission status: in partial remission Most recent bipolar episode type: depressed Mixed hyperlipidemia E78.2 Hyperlipidemia type: mixed hyperlipidemia Stage 3 chronic kidney disease, unspecified whether stage 3a or 3b CKD N18.30 Chronic kidney disease stage 3 subtype: unspecified whether 3a or 3b Tobacco dependence F17.200 Benign prostatic hyperplasia with weak urinary stream N40.1; R39.12 Lower urinary tract symptom detail: weak urinary stream Lower urinary tract symptom presence: symptoms present Hypotension due to drugs I95.2 Hypotension type: hypotension due to drug Injury of coccyx, subsequent encounter S39.92XD Encounter type: subsequent encounter Foot callus L84 Hypertrophic cardiomyopathy I42.2 Schizoaffective disorder, depressive type F25.1 Schizoaffective disorder type: depressive Additional Codes ALEXIS-7 Assessment Billing - ALEXIS-7 Assessment Tool: ALEIXS-7 Assessment [id number] ([id number])
[2023-06-18 11:48] VITALS: BP 98/60; PULSE 44; O2SAT 98; BMI 27.1
== END 2023-06-18 12:30 | disposition home or self-care (01) ==
PROVIDERS: Visit Provider Physician Assistant
DX: Z00.00 Encounter for general adult medical examination without abnormal findings (principal); F31.75 Bipolar disorder, in partial remission, most recent episode depressed; N18.30 Chronic kidney disease, stage 3 unspecified; I42.2 Other hypertrophic cardiomyopathy; F25.1 Schizoaffective disorder, depressive type; I25.810 Atherosclerosis of coronary artery bypass graft(s) without angina pectoris; E78.2 Mixed hyperlipidemia; F17.200 Nicotine dependence, unspecified, uncomplicated; N40.1 Benign prostatic hyperplasia with lower urinary tract symptoms; R39.12 Poor urinary stream; I95.2 Hypotension due to drugs; S39.92XD Unspecified injury of lower back, subsequent encounter
CPT/HCPCS: 99396

== ENCOUNTER 2023-06-18 12:39 | Outpatient (REF) | payer OTHER, SELFPAY ==
--- NOTE | ~2023-06-18 | XR_ITS ---
EXAMINATION: XR SACRUM AND COCCYX CLINICAL INFORMATION: Low back injury COMPARISON: None available. TECHNIQUE: 3 views of the sacrum and coccyx were obtained. FINDINGS: There are no fractures. There is narrowing cough L5-S1 intervertebral disc space and there is possible pars defect of L5 pedicle. No evidence of fractures is demonstrated. XR/XR sacrum coccyx min 2V IMPRESSION: Degenerative changes at the level of L5-S1 with possible pars defect
[2023-06-18 14:17] LABS: Hematocrit 48.9 % (42.0-52.0); Hemoglobin 16.6 g/dl (14.0-18.0); Mean Corpuscular HGB Conc 33.9 g/dl (31.0-36.0); Mean Corpuscular Hemoglobin 32.1 pg (27.0-33.0); Mean Corpuscular Volume 94.6 fL (80.0-98.0); Platelet Count 136 X10*3/uL (160-400); Red Blood Count 5.17 X10*6/uL (4.60-5.80); Red Cell Distribution Width 12.8 % (11.0-16.0); White Blood Count 6.9 X10*3/uL (4.8-10.8)
[2023-06-18 15:10] LABS: Prostate Specific Antigen Scr 1.14 ng/mL (<0.05-4.0)
[2023-06-18 15:18] LABS: Anion Gap 11 (12-20); TSH reflex Free T4 0.63 uIU/mL (0.32-4.0)
[2023-06-18 15:23] LABS: Alanine Aminotransferase 33 U/L (0-40); Albumin Level 4.7 g/dL (3.5-5.0); Alkaline Phosphatase 67 U/L (39-117); Aspartate Amino Transferase 31 U/L (5-37); Bilirubin Total 1.3 mg/dL (0.0-1.0); Blood Urea Nitrogen 14 mg/dL (9-16); Calcium 9.7 mg/dL (8.4-10.2); Carbon Dioxide 30 mmol/L (22-29); Chloride 104 mmol/L (96-108); Cholesterol 127 mg/dL (<200); Estimated Glomerular Filt Rate > 60; Glucose Fasting 78 mg/dL (60-99); HDL Cholesterol 52 mg/dL (>40); LDL Cholesterol Calculated 66 mg/dL (<100); Potassium 4.7 mmol/L (3.3-5.1); Sodium 140 mmol/L (135-145); Triglycerides 49 mg/dL (<150)
== END 2023-06-18 12:40 | disposition home or self-care (01) ==
LOC: HO.LAB 12:39
PROVIDERS: PCP Physician Assistant; Visit Provider Physician Assistant
DX: Z12.5 Encounter for screening for malignant neoplasm of prostate (principal); S39.92XD Unspecified injury of lower back, subsequent encounter; E78.2 Mixed hyperlipidemia; I25.810 Atherosclerosis of coronary artery bypass graft(s) without angina pectoris; E03.9 Hypothyroidism, unspecified
CPT/HCPCS: 36415; 72220; 80053; 80061; 84153; 84443; 85027

== ENCOUNTER 2023-07-19 16:39 | Emergency (ER) | payer OTHER, SELFPAY ==
--- NOTE | ~2023-07-19 | CT_ITS ---
EXAMINATION: CT ABDOMEN AND PELVIS WITHOUT CONTRAST CLINICAL INFORMATION: Neck pain. Right flank pain COMPARISON: CT abdomen and pelvis June 04, 2018 TECHNIQUE: Multidetector volumetric imaging was performed from the superior aspect of the liver through the pubic symphysis. Sagittal and coronal reformatted images were obtained on the technologist's workstation. This CT examination was performed using dose optimization techniques as appropriate, variously including the following: *Automated exposure control *Adjustment of mA and/or kV according to patient size (this includes techniques or standardized protocols for targeted exams where dose is matched to indication/reason for exam; i.e. extremities or head) *Use of iterative reconstruction technique DLP: 451 mGy-cm FINDINGS: LUNG BASES: The visualized lung bases are unremarkable. LIVER, GALLBLADDER, AND BILIARY TREE: The liver is normal in size, shape, and attenuation. No focal hepatic lesion or biliary ductal dilatation is present. Status post cholecystectomy PANCREAS: Unremarkable. SPLEEN: Unremarkable. ADRENAL GLANDS: Unremarkable. KIDNEYS AND URETERS: Nonobstructive 2 mm stone at the upper pole the right kidney. There are no ureteral stones. There is no hydronephrosis. There are scattered punctate calcifications in the parenchyma of the kidney bilaterally. 1 cm cortical cyst mid lower pole left kidney. No follow-up imaging is recommended for simple renal cyst.. BLADDER: Bladder is distended. Bladder down ages to the level the umbilicus. No bladder calculus or mass. No inflammation. GASTROINTESTINAL TRACT: The small and large bowel are unremarkable. The appendix is unremarkable. ABDOMINAL WALL: No significant hernia is appreciated. LYMPH NODES: Normal. VASCULAR: Unremarkable. PELVIC VISCERA: Unremarkable. OSSEOUS STRUCTURES: Multilevel degenerative spondylosis spine. CT/CT abdomen pelvis wo IV con IMPRESSION: 1. No acute abnormality CT scan abdomen pelvis. 2. 2 mm nonobstructive stone upper pole right kidney. No ureteral calculi or hydronephrosis. 3. Status post cholecystectomy. Fleischner guidelines were followed.
[2023-07-19 16:55] VITALS: BP 125/76; BP 130/100; PULSE 83; RESP 16; TEMP 36.6; O2SAT 98; O2SAT 99; BMI 26.1
--- NOTE | 2023-07-19 18:12 | ED_ITS ---
HPI - Back Pain/Injury General Chief Complaint: Back Pain/Injury Stated Complaint: lower back pain x1hr Time Seen by Provider: 07/19/23 17:38 Source: patient and RN notes reviewed Mode of arrival: ambulatory Limitations: no limitations History of Present Illness ED Provider: Klaudia Malik PA-C HPI Narrative: This is a 58-year-old male, with a history of bipolar disorder, CAD, chronic kidney disease - , hypothyroidism, SOB, LAD coronary artery stent, and schizoaffective disorder, who presents emergency department complaints of back pain x 1 hour. Patient states that several days ago he lifted a heavy laundry bag , He had some cramping in his low back however states that this worse about an hour ago. He describes his pain as a throbbing/pulsating pack goes throughout his low back. He also endorses some numbness and tingling in his low back. He states that the pain does radiate into his right abdomen. He denies any urinary or bowel incontinence or retention. He denies any fevers, chills, chest pain, shortness of breath, abdominal pain, nausea, vomiting or diarrhea. No dysuria or hematuria. He does endorse some urinary urgency. Hx of kidney stones states that his symptoms feel somewhat similar to kidney stones that he has had in the past. States that he was having difficulty walking secondary to his back. Denies any other complaints or concerns at this time. MD elicited complaint: back pain Pertinent past history: prior back pain Similar Symptoms Previously: Yes Quality: aching, tingling, spasming and throbbing Location: lumbar spine and sacrum Radiation: abdomen and buttocks Exacerbating factors: movement Relieving factors: immobilization Context: history of kidney stones Associated symptoms: difficulty walking Related Data Home Medications ?Medication ?Instructions ?Recorded ?Confirmed lorazepam 1 mg tablet 1 mg PO DAILY PRN 06/13/22 06/18/23 lurasidone 20 mg tablet 20 mg PO BEDTIME 06/13/22 06/18/23 trazodone 50 mg tablet 50 mg PO BEDTIME PRN 06/13/22 06/18/23 benztropine 0.5 mg tablet mg PO 06/18/23 06/18/23 Previous Rx's ?Medication ?Instructions ?Recorded albuterol sulfate 90 mcg/actuation 1 puff inhalation Q6-8H PRN 04/13/22 aerosol inhaler Shortness Of Breath 30 days #8.5 grams fexofenadine 180 mg tablet 180 mg PO DAILY 90 days #90 tabs 04/13/22 nitroglycerin 0.4 mg sublingual 0.4 mg sublingual Q5M #20 tabs 04/13/22 tablet levothyroxine 25 mcg tablet 25 mcg PO DAILY 90 days #90 tabs 04/17/23 metoprolol succinate 25 mg 12.5 mg (1/2 x 25 mg) PO DAILY 90 05/28/23 tablet,extended release 24 hr days #45 tabs aspirin 81 mg tablet,delayed 81 mg PO DAILY #90 tabs 05/29/23 release atorvastatin 80 mg tablet 80 mg PO DAILY #90 tabs 06/18/23 tamsulosin 0.4 mg capsule 0.4 mg PO DAILY 90 days #90 caps 06/18/23 Allergies Allergy/AdvReac Type Severity Reaction Status Date / Time neff [CHERRIES] Allergy Unknown digestive Verified 07/19/23 16:59 issues (only with fresh) gluten [GLUTEN] Allergy Unknown digestive Verified 07/19/23 16:59 issues ibuprofen [From MOTRIN] Allergy Unknown UNKNOWN Verified 07/19/23 16:59 mayonnaise [MAYONNAISE] Allergy Unknown digestive Verified 07/19/23 16:59 issues Penicillins [PENICILLINS] Allergy Unknown UNKNOWN Verified 07/19/23 16:59 rosuvastatin [Crestor] Allergy Unknown unknown Verified 07/19/23 16:59 soy [SOY] Allergy Unknown digestive Verified 07/19/23 16:59 issue Sulfa (Sulfonamide Allergy Unknown unknown Verified 07/19/23 16:59 Antibiotics) [SULFA (SULFONAMIDE ANTIBIOTICS)] wheat [WHEAT] Allergy Unknown digestive Verified 07/19/23 16:59 issues lamotrigine [LAMOTRIGINE] AdvReac Intermediate HEADACHES Verified 07/19/23 16:59 oxycodone [OXYCODONE] AdvReac Intermediate racing Verified 07/19/23 16:59 thoughts APPLE JUICE Allergy Unknown digestive Uncoded 07/19/23 16:59 issues fresh sridevi cherries Allergy Unknown unknown Uncoded 07/19/23 16:59 Review of Systems 2 Review of Systems: Yes all other systems are reviewed and are negative Constitutional: Constitutional: Reports as per [facility] Past Medical History Medical History (Updated 07/21/23 @ 00:02 by Ha Paula) Hypothyroidism Bipolar disorder Presence of stent in LAD coronary artery Chronic kidney disease Ischemic colitis Schizoaffective disorder CAD (coronary artery disease) Surgical History S/P cardiac cath History of heart artery stent History of cholecystectomy History of appendectomy History of tonsillectomy Family History Family History (Updated 06/18/23 @ 12:13 by Omid Cheung PA-C) Father Liver cancer Monoallelic mutation of MET gene Mother Arthritis Cancer Pacemaker Sister Parkinson disease Other Mental health disorder Social History Social History (Updated 06/18/23 @ 12:14 by Omid Cheung PA-C) Housing: House Alcohol intake: current Alcohol intake frequency: a few times a week Alcohol type: wine Patient Tobacco Use Status: Current everyday Tobacco user Tobacco use type: Cigar Cigarette Packs Per Day: 0.5 Cigarettes Per Day: 10 Years Smoked: 12 years e-Cigarette/Vaping Use: Currently Using Second Hand Smoke Exposure: Yes Substance Use Type: Marijuana service: No Current occupational status: employed 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 Cognitive needs: No Hearing needs: No Vision needs: Yes (glasses) Physical Exam 2 Vital Signs: Vital Signs: Last Vital Signs Temp 98.0 F 07/20/23 00:38 Pulse 81 07/20/23 00:38 Resp 18 07/20/23 00:38 BP 135/71 07/20/23 00:38 Pulse Ox 98 07/20/23 00:38 O2 Del Method Room Air 07/20/23 00:38 BMI result Body Mass Index 26.1 Const: General: cooperative, comfortable and no acute distress O rientation/consciousness: patient oriented x3 Limitations: no limitations HEENT: Head: Yes normal to inspection, Yes normocephalic and Yes atraumatic Ears: hearing grossly normal bilaterally General nose exam: Normal external nose present Face and sinus: Yes normal facial exam Mouth: Normal oral and palatal mucosa present, oropharynx normal and moist mucous membranes Throat: Yes posterior oropharynx normal Eyes: General: appearance normal, both eyes and all related structures E yelids: Yes eyelids normal Conjunctivae: conjunctivae normal Sclerae: s clerae normal Pupils: Equal, round and reactive pupils present EOM: EOMs intact bilaterally Neck: Neck: Yes normal visual inspection, Yes full ROM and Yes no lymphadenopathy Lymphatic: no lymphadenopathy noted Chest: Chest palpation & inspection: normal inspection of the chest Resp: Effort & Inspection: normal respiratory effort and able to speak in complete sentences Auscultation: clear to auscultation bilaterally, no crackles, no rales, no rhonchi and no wheezes Cardio: Rate: regular rate Rhythm: regular rhythm Heart sounds: S1 normal heart sound present and S2 normal heart sound present GI: Other: Abdomen is soft and nontender Inspection: Yes normal to inspection Back/Spine/Pelvis: Other: Tenderness to palpation along the midline spine and paraspinous muscles. Strength distally 5/5 in lower extremities. Skin: General skin exam: no rashes or lesions noted Trauma: no lacerations or abrasions Wounds: no wounds Neuro: General: patient oriented x3 and moves all extremities Cranial nerves: Yes Equal, round and reactive pupils present Extrem: General: Yes normal to inspection Right upper extremity: normal to inspection Left upper extremity: normal to inspection Right lower extremity: normal to inspection Left lower extremity: normal to inspection Course Reevaluation(s) Reevaluation #1: Labs return, platelet count low, this appears to be chronic forearm, laboratory perkins unremarkable. Total bili 1.1 appears to be at his baseline. Troponin 27.3, will repeat. Abdomen and pelvis CT was performed, does have a significantly distended bladder however official read was not performed at this time. Will order bladder scan to estimate how much urine is in his bladder at this time. He does not feel as though he needs to urinate at this time. Will medicate with IV Valium. Psych given to my colleague, Henok Alvarado DNP pending CT abd/pelvis and re-eval. Time: 19:36 Reevaluation #2: CT/CT abdomen pelvis wo IV con IMPRESSION: 1. No acute abnormality CT scan abdomen pelvis. 2. 2 mm nonobstructive stone upper pole right kidney. No ureteral calculi or hydronephrosis. 3. Status post cholecystectomy. Patient reports onset of pain approximately 1 week ago after lifting a laundry basket described as a burning pressure to the midline of his lower back with a pulsating sensation at times radiating to the right lower quadrant. He states that today when attempting to get out of the car he developed severe sudden worsening of the pain, and required assistance to get out of the vehicle. He is having difficulty ambulating due to the pain. CT does reveal significantly distended bladder up to the level of the umbilicus. Bladder scan revealed 1,100 mL inpatient without any heard her sensation to void. When asked he was able to void 600 mL, with postvoid scan of 474. Flower catheter placed. When asked he does admit to having a weak urinary stream recently, he has been taking Flomax at home to try to help with this but has not noticed any improvement. Concern at this time for possible cauda equina syndrome, this case was discussed with my attending at the time Dr. Allen who agrees that patient require MRI to rule out cauda equina syndrome. MRI services not available at this time. Contacted [facility], patient accepted for ED to ED josé miguel, accepting physician Deepika Miguel. Patient updated and agreeable with plan of care. Medications Administered Discontinued Medications Generic Name Dose Route Start Last Admin Trade Name Freq PRN Reason Stop Dose Admin Diazepam 2.5 mg 07/19/23 18:39 07/19/23 19:39 Diazepam 10 Mg/2 Ml Cartridge IVPUSH 07/19/23 18:40 2.5 mg STAT ONE Administration Medical Decision Making Medical Decision Making [facility] Narrative: This is a 58-year-old male, with a history of bipolar disorder, CAD, chronic kidney disease - , hypothyroidism, SOB, LAD coronary artery stent, and schizoaffective disorder, who presents emergency department complaints of back pain x 1 hour. On arrival, patient in no acute distress, vital signs within normal limits. Strength 5/5 in lower extremities. He is tenderness palpation along midline spine right paraspinous muscles. Abdomen is soft and nontender. He has no red flag back symptoms to suggest cauda equina syndrome. Does report decreased urinary stream however has started Flomax at home, no other urinary symptoms. Denies any numbness or tingling into groin. He does have history of kidney stones, given history, will obtain CT scan for rule out obstructive uropathy Plan: Labs, UA, CT abdomen and pelvis Differential Diagnosis Differential Diagnoses: The differential diagnosis associated with the presentation includes Obstructive uropathy, nephrolithiasis, hydronephrosis, cauda equina syndrome- unlikely, sciatica Admission/Observation Consideration of admission/observation: Escalation of care including admission/observation considered Lab Data MDM Lab Attestation statement: I reviewed the patient's lab results. No leukocytosis, stable H&H, 07/19/23 18:34 07/19/23 18:34 Labs: Lab Results 07/19/23 07/19/23 07/19/23 Range/Units 18:34 19:34 20:41 WBC 9.3 (4.8-10.8) X10*3/uL RBC 4.73 (4.60-5.80) X10*6/uL Hgb 15.8 (14.0-18.0) g/dl Hct 44.2 (42.0-52.0) % MCV 93.4 (80.0-98.0) fL MCH 33.4 H (27.0-33.0) pg MCHC 35.7 (31.0-36.0) g/dl RDW 12.1 (11.0-16.0) % Plt Count 133 L (160-400) X10*3/uL MPV 9.2 L (9.4-12.4) fL Immature Gran % (Auto) 0.3 (0.0-0.4) % Neut % (Auto) 70.2 (45-73) % Lymph % (Auto) 17.3 L (20-40) % [place] % (Auto) 8.2 (2-11) % Eos % (Auto) 3.7 (0-4) % Baso % (Auto) 0.3 (0-2) % Lymph # (Auto) 1.6 (1.2-4.9) X10*3/uL [place] # (Auto) 0.8 (0.1-1.2) X10*3/uL Eos # (Auto) 0.3 (0.0-0.4) X10*3/uL Baso # (Auto) 0.0 (0.0-0.2) X10*3/uL Abs Immat Gran (auto) 0.03 (0.00-0.03) X10*3/uL Absolute Neuts (auto) 6.5 (2.0-8.3) x10*3/uL Absolute Nucleated RBC 0.000 (0.0-0.012) X10*3/uL Nucleated RBC % (auto) 0.0 (0.0-0.2) /100WBC ESR 1 (0-15) MM/HR Sodium 143 (135-145) mmol/L Potassium 3.9 (3.3-5.1) mmol/L Chloride 108 (96-108) mmol/L Carbon Dioxide 26 (22-29) mmol/L Anion Gap 13 (12-20) BUN 11 (9-16) mg/dL Creatinine 0.79 (0.5-1.4) mg/dL Estim Creat Clear Calc 87.5 Estimated GFR > 60 Random Glucose 75 (60-115) mg/dL Calcium 9.5 (8.4-10.2) mg/dL Total Bilirubin 1.1 H (0.0-1.0) mg/dL Direct Bilirubin 0.4 (0.0-0.5) mg/dL AST 24 (5-37) U/L ALT 23 (0-40) U/L Alkaline Phosphatase 65 (39-117) U/L Troponin I High Sens 27.3 27.6 (<3.5-35.0) ng/L C-Reactive Protein < 0.04 (< or = 0.50) mg/dL Total Protein 6.1 L (6.5-8.0) g/dL Albumin 4.3 (3.5-5.0) g/dL Urine Color Yellow Urine Appearance Clear Urine pH 6.0 (5.0-9.0) Ur Specific [place] <= 1.005 (1.005-1.025) Urine Protein Negative (Neg-Trace) mg/dL Urine Glucose (UA) Negative (Negative) mg/dL Urine Ketones Negative (Negative) mg/dL Urine Blood Negative (Negative) Urine Nitrite Negative (Negative) Ur Leukocyte Esterase Negative (Negative) Radiology Impression Discussion of test interpretation with radiology: I have reviewed the radiologist's reading. External Record Review External record reviewed: Inpatient record, Office record, Outpatient record, Prior outpatient labs, Prior outpatient radiology, Primary care record and Outside ED record Discharge Plan Discharge Clinical Impression: Back pain Patient Disposition: Xfer [facility] Transfer [facility]: [facility] Prescriptions: No Action albuterol sulfate 90 mcg/actuation HFA aerosol inhaler 1 puff inhalation Q6-8H PRN (Reason: Shortness Of Breath) 30 Days Qty: 8.5 3RF fexofenadine 180 mg tablet 180 mg PO DAILY 90 Days Qty: 90 2RF nitroglycerin 0.4 mg tablet, sublingual 0.4 mg sublingual Q5M Qty: 20 1RF levothyroxine 25 mcg tablet 25 mcg PO DAILY 90 Days Qty: 90 3RF metoprolol succinate 25 mg tablet extended release 24 hr 12.5 mg PO DAILY 90 Days Qty: 45 1RF Hold Instructions: Doctor's Order Rx Instructions: Reducing dose to 12.5 mg daily aspirin 81 mg tablet,delayed release (DR/EC) 81 mg PO DAILY Qty: 90 3RF lorazepam 1 mg tablet 1 mg PO DAILY PRN lurasidone 20 mg tablet 20 mg PO BEDTIME trazodone 50 mg tablet 50 mg PO BEDTIME PRN benztropine 0.5 mg tablet PO atorvastatin 80 mg tablet 80 mg PO DAILY Qty: 90 2RF tamsulosin 0.4 mg capsule 0.4 mg PO DAILY 90 Days Qty: 90 1RF Interventions: Acute Care Transfer Worksheet (ED) Last Done: 07/20/23 00:38 Discharge Date/Time: 07/20/23 00:40 Print Language: Portuguese
[2023-07-19 18:36] LABS: MANUAL DIFF FLAG NO
[2023-07-19 18:45] LABS: Basophils Percent Auto 0.3 % (0-2); Hematocrit 44.2 % (42.0-52.0); Hemoglobin 15.8 g/dl (14.0-18.0); Mean Corpuscular HGB Conc 35.7 g/dl (31.0-36.0); PLT CLUMP 1; SCAN SMEAR FLAG 1
[2023-07-19 18:46] LABS: Eosinophils Absolute Auto 0.3 X10*3/uL (0.0-0.4); Eosinophils Percent Auto 3.7 % (0-4); Imm Gran Abs Auto 0.03 X10*3/uL (0.00-0.03); Imm Gran Pct Auto 0.3 % (0.0-0.4); Lymphocytes Absolute Auto 1.6 X10*3/uL (1.2-4.9); Lymphocytes Percent Auto 17.3 % (20-40); Mean Corpuscular Hemoglobin 33.4 pg (27.0-33.0); Mean Corpuscular Volume 93.4 fL (80.0-98.0); Mean Platelet Volume 9.2 fL (9.4-12.4); Monocytes Absolute Auto 0.8 X10*3/uL (0.1-1.2); Monocytes Percent Auto 8.2 % (2-11); Neutrophils Absolute Auto 6.5 x10*3/uL (2.0-8.3); Neutrophils Percent Auto 70.2 % (45-73); Red Blood Count 4.73 X10*6/uL (4.60-5.80); Red Cell Distribution Width 12.1 % (11.0-16.0)
[2023-07-19 18:50] LABS: Platelet Count 133 X10*3/uL (160-400); White Blood Count 9.3 X10*3/uL (4.8-10.8)
[2023-07-19 18:51] LABS: Alanine Aminotransferase 23 U/L (0-40); Albumin Level 4.3 g/dL (3.5-5.0); Alkaline Phosphatase 65 U/L (39-117); Anion Gap 13 (12-20); Aspartate Amino Transferase 24 U/L (5-37); Bilirubin Direct 0.4 mg/dL (0.0-0.5); Bilirubin Total 1.1 mg/dL (0.0-1.0); Blood Urea Nitrogen 11 mg/dL (9-16); C Reactive Protein < 0.04 mg/dL (< or = 0.50); Calcium 9.5 mg/dL (8.4-10.2); Carbon Dioxide 26 mmol/L (22-29); Chloride 108 mmol/L (96-108); Creatinine Clr Calc Pharmacy 87.5; Estimated Glomerular Filt Rate > 60; Glucose Random 75 mg/dL (60-115); Potassium 3.9 mmol/L (3.3-5.1); Sodium 143 mmol/L (135-145); Total Protein 6.1 g/dL (6.5-8.0)
[2023-07-19 19:15] LABS: Troponin-I High Sensitivity 27.3 ng/L (<3.5-35.0)
[2023-07-19 19:23] LABS: Erythrocyte Sedimentation Rate 1 MM/HR (0-15)
[2023-07-19] MEDS: diazePAM 10 MG/2 ML CARTRIDGE 2.5 MG IVPUSH (19:39)
[2023-07-19 20:20] VITALS: BP 132/78; PULSE 86; RESP 16; TEMP 36.8; O2SAT 97
[2023-07-19 20:51] LABS: Appearance Urine Clear; Color Urine Yellow; Glucose Urine UA Negative (Negative); Leukocyte Esterase Urine Negative (Negative); Nitrite Urine Negative (Negative); Specific Gravity - Urine <= 1.005 (1.005-1.025); Urine Blood Negative (Negative); Urine Ketones Negative (Negative); Urine Protein Negative (Neg-Trace)
--- NOTE | 2023-07-19 20:51 | PC.NURSE ---
bladder scan for 1100mL in bladder, provider aware. pt encouraged to void, discussed potential need for indwelling catheter to drain bladder. pt able to void 750mL unassisted, provider notified of successful voiding.
[2023-07-19 21:07] LABS: Troponin-I High Sensitivity 27.6 ng/L (<3.5-35.0)
--- NOTE | 2023-07-20 00:35 | PC.NURSE ---
report called to [facility] er, hand off to maine ndiaye. ems departed with pt prior to receiving report from this rn.
[2023-07-20 00:38] VITALS: BP 135/71; PULSE 81; RESP 18; TEMP 36.7; O2SAT 98
== END 2023-07-20 00:40 | disposition short-term general hospital (02) ==
PROVIDERS: Physician Assistant Medical; Emergency Provider Emergency Medicine; PCP Physician Assistant
DX: M54.50 Low back pain, unspecified (principal); R39.12 Poor urinary stream; N18.9 Chronic kidney disease, unspecified; Z87.442 Personal history of urinary calculi
CPT/HCPCS: 36415; 51702; 51798; 74176; 80048; 80076; 81003; 84484; 85025; 85652; 86140; 96374; 99285; J3360

== ENCOUNTER 2023-07-26 10:39 | Outpatient (AMB) | payer OTHER, SELFPAY ==
[2023-07-26 10:49] VITALS: BP 124/86; PULSE 48; O2SAT 98; BMI 25.3
--- NOTE | 2023-07-26 10:49 | A.OFFPC_ITS ---
Vital Signs 07/26/23 10:49 Height 5 ft 5 in Weight 152 lb BMI 25.3 BP 124/86 Blood Pressure Location Lt brachial Position Sitting Pulse 48 L Pulse Source Pulse Oximeter Pulse Oximetry (%) 98 Oxygen Delivery Method Room Air Intake Visit Reasons: [facility] [place] bladder issues Account Solutions Analyst Required: No Accompanied by: Self / Same As Patient Allergies neff [CHERRIES] Allergy (Unknown, Verified 07/26/23 10:50) digestive issues (only with fresh) gluten [GLUTEN] Allergy (Unknown, Verified 07/26/23 10:50) digestive issues ibuprofen [From MOTRIN] Allergy (Unknown, Verified 07/26/23 10:50) UNKNOWN mayonnaise [MAYONNAISE] Allergy (Unknown, Verified 07/26/23 10:50) digestive issues Penicillins [PENICILLINS] Allergy (Unknown, Verified 07/26/23 10:50) UNKNOWN rosuvastatin [Crestor] Allergy (Unknown, Verified 07/26/23 10:50) unknown soy [SOY] Allergy (Unknown, Verified 07/26/23 10:50) digestive issue Sulfa (Sulfonamide Antibiotics) [SULFA (SULFONAMIDE ANTIBIOTICS)] Allergy (Unknown, Verified 07/26/23 10:50) unknown wheat [WHEAT] Allergy (Unknown, Verified 07/26/23 10:50) digestive issues lamotrigine [LAMOTRIGINE] Adverse Reaction (Intermediate, Verified 07/26/23 10:50) HEADACHES oxycodone [OXYCODONE] Adverse Reaction (Intermediate, Verified 07/26/23 10:50) racing thoughts APPLE JUICE Allergy (Unknown, Uncoded 07/19/23 16:59) digestive issues fresh sridevi cherries Allergy (Unknown, Uncoded 07/19/23 16:59) unknown Medication List - Last Reconciled 07/26/23 by Omid Cheung PA-C albuterol sulfate 90 mcg/actuation 1 puff inhalation Q6-8H PRN 30 days aspirin 81 mg PO DAILY atorvastatin 80 mg PO DAILY benztropine mg PO fexofenadine 180 mg PO DAILY 90 days levothyroxine 25 mcg PO DAILY 90 days lorazepam 1 mg PO DAILY PRN lurasidone 20 mg PO BEDTIME metoprolol succinate ER 12.5 mg (1/2 x 25 mg) PO DAILY 90 days nitroglycerin 0.4 mg sublingual Q5M tamsulosin 0.4 mg PO DAILY 90 days trazodone 50 mg PO BEDTIME PRN Tobacco use date assessed: 06/18/23 Dental Screening Dental Screen Date: 06/18/23 HPI [facility] [place] bladder issues HPI Details Patient is a 58-year-old male here today for ER follow-up visit. Patient has a past medical history significant for obesity, hyperlipidemia, CKD, hypertrophic cardiomyopathy, tobacco dependency, schizoaffective disorder, major depressive disorder, anxiety disorder, coronary artery disease with a history of stent placement in his LAD. Patient was seen at an [facility] for lower back pain and issues urinating, was transferred to [facility] for concerns of cauda equ[place] syndrome. [place] [address] [place] urine bladder. He did have Flower catheter placed. MRI stat done at [facility] ER which did show mild degenerative disc disease and mild disc herniation without any nerve root or cord impingement. Currently doing much better and continues on daily Flomax. He reports urinary flow has been better with Flomax. Of note heart rates still quite low. Has been holding his metoprolol. Attributes his low heart rates to his significant weight loss. Otherwise patient's asymptomatic. Will send for EKG to evaluate for an AV block .. CHRONIC MEDICAL CONDITIONS--> Schizoaffective disorder/bipolar disorder: He is seeing a therapist and psychiatrist. Has been able to get off alot of mental health meds. Has lost a significant amount of weight since reducing his mental health medications. He now has a new partner that helps him with his mental health as well. .. Coronary artery disease: Has lost follow-up with [facility] and is looking to reestablish with [facility].. Has been making extensive lifestyle modifications and has lost a lot of weight. Otherwise he denies any further chest discomfort, palpitations, dizziness or headaches. Unfortunately continues to smoke 4-5 cigars per day, he does understand that smoking is a large risk factor for recurrent cardiovascular disease and will continue to work on reducing his smoking. ---> of night noted bradycardia and hypo tension today in office. He is fairly asymptomatic though does feeling somewhat fatigued at times and even did have a syncopal episode few months back where he fell and injured his coccyx. .. Hypothyroid: Patient continues on levothyroxine 25 mcg with good effect. Recheck TSH to assure normal. Patient has been able to lose a lot of weight with lifestyle modifications recently. [facility] Medical History Hypothyroidism Bipolar disorder Presence of stent in LAD coronary artery Chronic kidney disease Ischemic colitis Schizoaffective disorder CAD (coronary artery disease) Surgical History S/P cardiac cath History of heart artery stent History of cholecystectomy History of appendectomy History of tonsillectomy Family History Father Liver cancer Monoallelic mutation of MET gene Mother Arthritis Cancer Pacemaker Sister Parkinson disease Other Mental health disorder Social History Housing: House Alcohol intake: current Alcohol intake frequency: a few times a week Alcohol type: wine Patient Tobacco Use Status: Current everyday Tobacco user Tobacco use type: Cigar Cigarette Packs Per Day: 0.5 Cigarettes Per Day: 10 Years Smoked: 12 years e-Cigarette/Vaping Use: Currently Using Second Hand Smoke Exposure: Yes Substance Use Type: Marijuana service: No Current occupational status: employed 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 Rome Burdick, Jayda Lizarraga, Irvin Siddiqi and colleagues, with an educational sophie from [employer]. Review of Systems Const Denies headache(s) Eyes Denies loss of vision ENT Denies vertigo, Denies dizziness, Denies headache(s) and Denies sore throat Card Denies chest pain, Denies leg edema and Denies lightheadedness Resp Denies cough, Denies hemoptysis and Denies wheezing GI Denies abdominal pain, Denies melena, Denies constipation, Denies diarrhea and Denies vomiting Denies dysuria, Denies urinary frequency and Denies urinary urgency Musc Denies arthralgias, Denies joint swelling, Denies numbness and Denies tingling Neuro Denies Abnormal speech present, Denies behavioral changes, Denies vertigo, Denies dizziness, Denies headache(s), Denies loss of vision, Denies memory loss, Denies numbness and Denies tingling Psych Denies anxiety, Denies behavioral changes, Denies depression, Denies memory loss and Denies panic attacks Jj/Lymph Denies easy bleeding and Denies easy bruising Aller/Immun Denies wheezing Physical exam (Primary Care) Vital Signs: Last Vital Signs Pulse 48 L 07/26/23 10:49 BP 124/86 07/26/23 10:49 Pulse Ox 98 07/26/23 10:49 Oxygen Delivery Method Room Air 07/26/23 10:49 BMI result Body Mass Index 25.3 Tobacco/Smoking Status: Tobacco use Status Tobacco use date assessed 06/18/23 07/26/23 10:53 Patient Tobacco Use Status Current everyday Tobacco 07/26/23 10:53 Tobacco use type Cigar 07/26/23 10:53 e-Cigarette/Vaping Use Currently Using 07/26/23 10:53 Thrive Assessment: Date of Thrive Assessment Date Thrive assessed 06/18/23 07/26/23 10:53 Const General: healthy appearing, no acute distress, alert and awake Nutritional Appearance: well nourished Orientation/consciousness: oriented to person, oriented to place and oriented to time HENMT Ears: TM's normal bilaterally General nose exam: Normal nasal mucous membranes and turbinates present Eyes Conjunctivae: conjunctivae normal Sclerae: sclerae normal Pupils: Equal, round and reactive pupils present Neck Neck: Yes no lymphadenopathy and Yes no JVD Thyroid: Thyroid normal Carotids: no bruits Resp Effort & Inspection: normal respiratory effort and not tachypneic Auscultation: no crackles, no rales, no rhonchi and no wheezes Cardio Rate: regular rate Rhythm: regular rhythm Heart sounds: no murmurs and normal S1 and S2 GI Palpation (GI): Soft to palpation, nontender, no hepatomegaly and no splenomegaly Auscultation: normal bowel sounds Skin General skin exam: no rashes or lesions noted and dry skin Neuro General: oriented to person, oriented to place and oriented to time Cranial nerves: Yes Equal, round and reactive pupils present Speech: No Abnormal speech present Gait exam (Neuro): Normal gait present Motor exam (neuro): no tremor noted Extrem Right upper extremity: full ROM Left upper extremity: full ROM Right lower extremity: full ROM; no edema Left lower extremity: full ROM; no edema Psych Mental Status: mental status grossly normal Speech and movement: Normal speech and movement present Affect: normal affect Attitude: cooperative Thought process: Normal thought process present Assessment and Plan Assessment & Plan (1) Hospital discharge follow-up: Code(s): Z09 - Encounter for follow-up examination after completed treatment for conditions other than malignant neoplasm Plan: As per HPI (2) Urinary retention: Code(s): R33.9 - Retention of urine, unspecified Plan: Patient seems to be experiencing some urinary retention. On Flomax and reports urinating better. PSA in May of 2023 was normal.. Stream has been better. Will refer to Urology for further evaluation. (3) Bradycardia: Code(s): R00.1 - Bradycardia, unspecified Plan: Continues to bradycardia. He is asymptomatic. Have held his metoprolol though heart rate still remains low. Will send for EKG to evaluate for a AV heart block. Orders: Orders ECG 12 lead EKG Today R00.1 - Bradycardia, unspecified Comprehensive [place]. Panel Fast Today I25.810 - Atherosclerosis of coronary artery bypass graft(s) without angina pectoris Lipid Panel Today I25.810 - Atherosclerosis of coronary artery bypass graft(s) without angina pectoris Complete Blood Count no Diff Today I25.810 - Atherosclerosis of coronary artery bypass graft(s) without angina pectoris Referrals Urology Referral R33.9 - Retention of urine, unspecified Coding Level of Care Code Est Pt Level 4 (23115) Diagnoses Hospital discharge follow-up Z09 Urinary retention R33.9 Bradycardia R00.1
== END 2023-07-26 11:13 | disposition home or self-care (01) ==
PROVIDERS: PCP Physician Assistant; Visit Provider Physician Assistant
DX: Z09 Encounter for follow-up examination after completed treatment for conditions other than malignant neoplasm (principal); R33.9 Retention of urine, unspecified; R00.1 Bradycardia, unspecified
CPT/HCPCS: 99214

== ENCOUNTER 2023-08-03 10:22 | Outpatient (AMB) | payer OTHER, SELFPAY ==
--- NOTE | 2023-08-03 11:51 | A.OFFVIS_ITS ---
Intake Visit Reasons: urinary retention Intake Note: Patient is Present for ER Follow Up Retention/ [facility] Medication: Tamsulosin Antibiotic Allergies: Penicillin, Sulfa, Blood Thinners: Aspirin Li catheter was placed in ER PVR in er was 474 li was then removed Floor Clerk Required: No Allergies neff [CHERRIES] Allergy (Unknown, Verified 07/26/23 10:50) digestive issues (only with fresh) gluten [GLUTEN] Allergy (Unknown, Verified 07/26/23 10:50) digestive issues ibuprofen [From MOTRIN] Allergy (Unknown, Verified 07/26/23 10:50) UNKNOWN mayonnaise [MAYONNAISE] Allergy (Unknown, Verified 07/26/23 10:50) digestive issues Penicillins [PENICILLINS] Allergy (Unknown, Verified 07/26/23 10:50) UNKNOWN rosuvastatin [Crestor] Allergy (Unknown, Verified 07/26/23 10:50) unknown soy [SOY] Allergy (Unknown, Verified 07/26/23 10:50) digestive issue Sulfa (Sulfonamide Antibiotics) [SULFA (SULFONAMIDE ANTIBIOTICS)] Allergy (Unknown, Verified 07/26/23 10:50) unknown wheat [WHEAT] Allergy (Unknown, Verified 07/26/23 10:50) digestive issues lamotrigine [LAMOTRIGINE] Adverse Reaction (Intermediate, Verified 07/26/23 10:50) HEADACHES oxycodone [OXYCODONE] Adverse Reaction (Intermediate, Verified 07/26/23 10:50) racing thoughts APPLE JUICE Allergy (Unknown, Uncoded 07/19/23 16:59) digestive issues fresh sridevi cherries Allergy (Unknown, Uncoded 07/19/23 16:59) unknown HPI Comments Details: Brady is a pleasant male. He is a patient of Dr. Cheung. He seen for the following urologic conditions - lower urinary tract symptoms Lower urinary tract symptoms Progressive On alfuzosin [facility] Medical History Hypothyroidism Bipolar disorder Presence of stent in LAD coronary artery Chronic kidney disease Ischemic colitis Schizoaffective disorder CAD (coronary artery disease) Surgical History S/P cardiac cath History of heart artery stent History of cholecystectomy History of appendectomy History of tonsillectomy Family History Father Liver cancer Monoallelic mutation of MET gene Mother Arthritis Cancer Pacemaker Sister Parkinson disease Other Mental health disorder Social History Housing: House Alcohol intake: current Alcohol intake frequency: a few times a week Alcohol type: wine Patient Tobacco Use Status: Current everyday Tobacco user Tobacco use type: Cigar Cigarette Packs Per Day: 0.5 Cigarettes Per Day: 10 Years Smoked: 12 years e-Cigarette/Vaping Use: Currently Using Second Hand Smoke Exposure: Yes Substance Use Type: Marijuana service: No Current occupational status: employed 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 Cognitive needs: No Hearing needs: No Vision needs: Yes (glasses) Review of Systems Const Denies chills and Denies fever(s) Card Reports no additional complaints and Denies syncope Resp Denies cough GI Denies abdominal pain and Denies heartburn Reports as per HPI and Denies change in libido Neuro Denies syncope Psych Denies change in libido Endo Denies change in libido Physical Exam Const General: cooperative, healthy appearing, comfortable and no acute distress Orientation/consciousness: patient oriented x3 HEENT Face and sinus: Yes normal facial exam Mouth: moist mucous membranes Neck Neck: Yes normal visual inspection, Yes full ROM and Yes trachea midline Chest Chest palpation & inspection: normal inspection of the chest Resp Effort & Inspection: normal respiratory effort, able to speak in complete sentences and no respiratory distress GI Inspection: Yes normal to inspection Back/Spine/Pelvis Cervical Spine: normal cervical lordosis Thoracic/Lumbar Spine: thoracic and lumbar spine normal to inspection Skin General skin exam: no rashes or lesions noted Neuro General: patient oriented x3, gait normal, tone normal and moves all extremities Extrem General: Yes normal to inspection and Yes capillary refill normal Office Procedures Post Void Residual Post Residual Void Post Void Residual (PVR): 107 [id number] Void Residual by ultrasound Assessment & Plan Assessment & Plan (1) Urinary retention: Code(s): R33.9 - Retention of urine, unspecified Category: Medical (2) BPH (benign prostatic hyperplasia): Code(s): N40.0 - Benign prostatic hyperplasia without lower urinary tract symptoms Category: Medical Qualifiers: Lower urinary tract symptom presence: symptoms present Lower urinary tract symptom detail: weak urinary stream Qualified Code(s): N40.1 - Benign prostatic hyperplasia with lower urinary tract symptoms; R39.12 - Poor urinary stream Plan Alfuzosin Three-month follow-up Orders: Orders AMB Post Void Residual by ultrasound 08/03/23 R33.9 - Retention of urine, unspecified US bladder 08/03/23 R39.12 - Poor urinary stream, R33.9 - Retention of urine, unspecified Medications: New alfuzosin ER administer after the same meal each day 10 mg PO DAILY 90 tabs 0RF 90 days R33.9 - Retention of urine, unspecified, N40.1 - Benign prostatic hyperplasia with lower urinary tract symptoms, N13.8 - Other obstructive and reflux uropathy Patient Instructions: Imaging studies, laboratory and physical exam results were discussed and reviewed in detail. No major barriers to patient understanding were identified. An opportunity to ask questions regarding the treatment plan was provided. All questions were answered. The patient expressed understanding and agreement with the above treatment plan. The patient is aware they should contact our office by phone for worsening of their current condition or the appearance of new urologic symptoms. Compliance is encouraged with any medications and followup testing that is ordered. It is a privilege to participate in the urologic care of your patient. If you have any questions or concerns regarding treatment for the above conditions, or other urologic issues, please do not hesitate to contact me. The office telephone contact is [phone]. This note is constructed using voice recognition software. While every effort has been made to ensure accuracy metal mine inspector errors may have been included. Yours sincerely, Dr Nathanael Rutledge MD, [facility] - Urology Providers of Expert, Compassionate Care for the Genitourinary System Coding Level of Care Code Est Pt Level 3 (73600) Diagnoses Urinary retention R33.9 Benign prostatic hyperplasia with weak urinary stream N40.1; R39.12 Lower urinary tract symptom presence: symptoms present Lower urinary tract symptom detail: weak urinary stream CPT Codes Post Residual Void - PVR CPT Code: 14311-Mamh Void Residual by ultrasound ([id number])
== END 2023-08-03 12:09 | disposition home or self-care (01) ==
PROVIDERS: PCP Physician Assistant; Visit Provider Urology
DX: R33.9 Retention of urine, unspecified (principal); N40.1 Benign prostatic hyperplasia with lower urinary tract symptoms; R39.12 Poor urinary stream
CPT/HCPCS: 99213

== ENCOUNTER → 2023-08-03 10:22 | Outpatient (BNVA) | payer OTHER, SELFPAY | PROVIDERS: PCP Physician Assistant; Visit Provider Urology | DX: N40.1 Benign prostatic hyperplasia with lower urinary tract symptoms (principal); R39.12 Poor urinary stream; R33.8 Other retention of urine | CPT/HCPCS: 51798; 99212 ==

== ENCOUNTER 2023-10-01 14:18 | Outpatient (AMB) | payer OTHER, SELFPAY ==
[2023-10-01 14:50] VITALS: BP 92/60; PULSE 51; BMI 26.0
--- NOTE | 2023-10-01 14:50 | MHC.OFFVIS ---
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 Required: No Accompanied by: Self / Same As Patient Allergies neff [CHERRIES] Allergy (Unknown, Verified 07/26/23 10:50) digestive issues (only with fresh) gluten [GLUTEN] Allergy (Unknown, Verified 07/26/23 10:50) digestive issues ibuprofen [From MOTRIN] Allergy (Unknown, Verified 07/26/23 10:50) UNKNOWN mayonnaise [MAYONNAISE] Allergy (Unknown, Verified 07/26/23 10:50) digestive issues Penicillins [PENICILLINS] Allergy (Unknown, Verified 07/26/23 10:50) UNKNOWN rosuvastatin [Crestor] Allergy (Unknown, Verified 07/26/23 10:50) unknown soy [SOY] Allergy (Unknown, Verified 07/26/23 10:50) digestive issue Sulfa (Sulfonamide Antibiotics) [SULFA (SULFONAMIDE ANTIBIOTICS)] Allergy (Unknown, Verified 07/26/23 10:50) unknown wheat [WHEAT] Allergy (Unknown, Verified 07/26/23 10:50) digestive issues lamotrigine [LAMOTRIGINE] Adverse Reaction (Intermediate, Verified 07/26/23 10:50) HEADACHES oxycodone [OXYCODONE] Adverse Reaction (Intermediate, Verified 07/26/23 10:50) racing thoughts APPLE JUICE Allergy (Unknown, Uncoded 07/19/23 16:59) digestive issues fresh sridevi cherries Allergy (Unknown, Uncoded 07/19/23 16:59) unknown Medication List - Last Reconciled 10/01/23 by Dago Mcgregor MD albuterol sulfate 90 mcg/actuation 1 puff inhalation Q6-8H PRN 30 days alfuzosin ER 10 mg PO DAILY 90 days aspirin 81 mg PO DAILY atorvastatin 80 mg PO DAILY benztropine mg PO fexofenadine 180 mg PO DAILY 90 days levothyroxine 25 mcg PO DAILY 90 days lorazepam 1 mg PO DAILY PRN lurasidone 20 mg PO BEDTIME nitroglycerin 0.4 mg sublingual Q5M trazodone 50 mg PO BEDTIME PRN HPI Comments Details: 58-year-old gentleman here for follow-up. He was taken for cardiac catheterization after an abnormal stress tests performed for exertional chest tightness. Cardiac catheterization revealed severe proximal LAD stenosis which was treated with a drug-eluting stent with OCT guidance. He has a hypertrophic cardiomyopathy. He underwent cardiac event monitor in 2019 which did not show any PVCs or nonsustained VT. He had a cardiac MRI which showed delayed gadolinium enhancement and he was referred to electrophysiology. He was seen by Dr. Valle and it was felt that he is not high risk for arrhythmia. No ICD was indicated. He continues to smoke half a pack per day. Denying any chest pain or shortness of breath. He recently started seeing a different psychiatrist. He was told that his Seroquel (which he was on 800 mg daily) can be the cause for his hypertriglyceridemia. He has been cutting back on the Seroquel with the help of his psychiatrist and is down to 750 mg daily. He has not had a repeat repeat lipid panel since last year. 08/30/22: Sinus bradycardia 50 beats per minute, normal axis, lateral and inferior T-wave inversions due to underlying hypertrophic cardiomyopathy. QTC 428 milliseconds. Today he returns for follow-up. He has been exercising and losing weight. He is eating organic food. He is still smoking at this stage. He is asking that given the fact that he has lost weight and is exercising can he cut back on his atorvastatin from 80-40 mg. He has no chest pain or shortness of breath. We discussed about smoking cessation again. 12/13/2022: He returns for follow-up. He has stop smoking cigarettes but has been smoking cigars and smokes marijuana. He is denying any chest tightness or significant shortness of breath. Blood pressure control is good. He has been taking the atorvastatin. His last LDL cholesterol was good. 10/01/2023: He is here for follow-up. He was doing fine until 2 weeks ago when started having chest tightness. This is similar to his symptoms when he had coronary disease in the past diagnosed and had LAD PCI. He has chronic T-wave changes on the ECG due to hypertrophic cardiomyopathy. He continues to smoke unfortunately. He had few episodes in the last 2 weeks mostly with activity. No rest discomfort. He is asking whether he can stop atorvastatin. He continues to take baby aspirin. Due to low blood pressure his metoprolol was discontinued by the primary care physician appropriately. [facility] Medical History Hypothyroidism Bipolar disorder Presence of stent in LAD coronary artery Chronic kidney disease Ischemic colitis Schizoaffective disorder CAD (coronary artery disease) Surgical History S/P cardiac cath History of heart artery stent History of cholecystectomy History of appendectomy History of tonsillectomy Family History Father Liver cancer Monoallelic mutation of MET gene Mother Arthritis Cancer Pacemaker Sister Parkinson disease Other Mental health disorder Social History Housing: House Alcohol intake: current Alcohol intake frequency: a few times a week Alcohol type: wine Patient Tobacco Use Status: Current everyday Tobacco user Tobacco use type: Cigar Cigarette Packs Per Day: 0.5 Cigarettes Per Day: 10 Years Smoked: 12 years e-Cigarette/Vaping Use: Currently Using Second Hand Smoke Exposure: Yes Substance Use Type: Marijuana service: No Current occupational status: employed 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 Cognitive needs: No Hearing needs: No Vision needs: Yes (glasses) Review of Systems Const Denies chills, Denies fatigue, Denies fever(s), Denies frequent falls, Denies weakness, Denies weight gain and Denies weight loss ENT Denies dizziness Card Denies chest pain, Denies leg edema, Denies lightheadedness, Denies palpitations, Denies dyspnea and Denies dyspnea on exertion Resp Denies cough, Denies dyspnea and Denies dyspnea on exertion GI Denies hematochezia Musc Denies abnormal gait, Denies muscle weakness, Denies numbness, Denies radiating pain into limb and Denies tingling Neuro Denies abnormal gait, Denies dizziness, Denies frequent falls, Denies numbness, Denies tingling and Denies weakness Endo Denies fatigue and Denies palpitations Physical Exam Vital Signs: Last Vital Signs Pulse 51 10/01/23 14:50 BP 92/60 10/01/23 14:50 BMI result Body Mass Index 26.0 GENERAL APPEARANCE: in no acute distress, pleasant. NECK: no carotid bruit, no jugular venous distention. SKIN: no suspicious lesions, warm and dry. HEART: Systolic murmur all over the precordium, regular rate and rhythm. LUNGS: clear to auscultation bilaterally. ABDOMEN: soft, nontender. EXTREMITIES: no edema. PERIPHERAL PULSES: equal. NEUROLOGIC: No gross deficits, AAO X 3 Office Procedures EKG Details: Sinus bradycardia 51 beats per minute, first-degree AV block MT interval 222 milliseconds, normal axis, anterolateral T-wave inversions, QTC 438 milliseconds. [id number], Complete Assessment & Plan Assessment & Plan (1) Hypertrophic cardiomyopathy: Code(s): I42.2 - Other hypertrophic cardiomyopathy Category: Medical (2) CAD (coronary artery disease): Code(s): I25.10 - Atherosclerotic heart disease of [place] coronary artery without angina pectoris Category: Medical Qualifiers: Coronary Disease-Associated Artery/Lesion type: bypass graft [place] vs. transplanted heart: [place] heart Associated angina: without angina Qualified Code(s): I25.810 - Atherosclerosis of coronary artery bypass graft(s) without angina pectoris Plan 58-year-old gentleman here for follow-up. Has known history of coronary disease and underwent LAD PCI in the past. He has stopped smoking cigarettes and is smoking cigars. He has also background of hypertrophic cardiomyopathy and was seen by electrophysiology in the past and was deemed low risk for sudden cardiac and ICD was not implanted. He continues to smoke unfortunately. He is returning with chest tightness off and on for the last couple of weeks. ECG has chronic T-wave changes due to hypertrophic cardiomyopathy. He is on baby aspirin which should be continued. I have explained to him that atorvastatin should not be stopped and is a long-term drug for him and he is agreeable. Given chest discomfort and known coronary artery disease I am going to start with a stress Mibi. If stress test shows any perfusion defect then we will consider angiography. I once again I have told him to stop smoking. Currently blood pressure is too low to add any antianginals. Thank you for allowing me to participate in the care of your patient. Please feel free to contact me if you have any questions. Orders: Orders NM cardiolite stress test Today I25.810 - Atherosclerosis of coronary artery bypass graft(s) without angina pectoris Coding Level of Care Code Est Pt Level 5 (35780) Diagnoses Hypertrophic cardiomyopathy I42.2 Coronary artery disease involving coronary bypass graft of [place] heart without angina pectoris I25.810 Coronary Disease-Associated Artery/Lesion type: bypass graft [place] vs. transplanted heart: [place] heart Associated angina: without angina CPT Codes EKG - CPT: 20742-[id number], Complete ([id number])
== END 2023-10-01 15:29 | disposition home or self-care (01) ==
PROVIDERS: PCP Physician Assistant; Visit Provider Internal Medicine Cardiovascular Disease
DX: I42.2 Other hypertrophic cardiomyopathy (principal); I25.810 Atherosclerosis of coronary artery bypass graft(s) without angina pectoris; I44.0 Atrioventricular block, first degree; I49.3 Ventricular premature depolarization
CPT/HCPCS: 93010; 99214

== ENCOUNTER → 2023-10-01 14:18 | Outpatient (BNVA) | payer OTHER, SELFPAY | PROVIDERS: PCP Physician Assistant; Visit Provider Internal Medicine Cardiovascular Disease | DX: I42.2 Other hypertrophic cardiomyopathy (principal); I25.810 Atherosclerosis of coronary artery bypass graft(s) without angina pectoris; I10 Essential (primary) hypertension; I44.0 Atrioventricular block, first degree; I49.1 Atrial premature depolarization; Z98.61 Coronary angioplasty status | CPT/HCPCS: 93005; 99212 ==

== ENCOUNTER 2023-10-19 13:51 | Outpatient (REF) | payer OTHER, SELFPAY ==
--- NOTE | ~2023-10-19 | US_ITS ---
EXAMINATION: US PELVIS LIMITED (BLADDER) CLINICAL INFORMATION: Poor urinary stream. COMPARISON: None available. TECHNIQUE: Real-time imaging of the bladder. FINDINGS: Bladder is distended . Bilateral ureteral jets are demonstrated. Prevoid bladder volume is 397 mL. Postvoid bladder volume is 123 mL. The prostate is mildly enlarged with a volume of 34 mL. At the time of the prior CT scan, prostate volume is estimated to be 57 mL. US/US bladder IMPRESSION: Mild BPH with 123 mL post void residual. Mild prostatomegaly. Electronically signed by: Trav White MD 10/22/2023 09:52 PM EDT
== END 2023-10-19 13:52 | disposition home or self-care (01) ==
LOC: HO.US 13:51
PROVIDERS: PCP Physician Assistant; Visit Provider Urology
DX: R39.12 Poor urinary stream (principal); R33.9 Retention of urine, unspecified
CPT/HCPCS: 76857

== ENCOUNTER 2023-11-02 12:58 | Outpatient (AMB) | payer OTHER, SELFPAY ==
--- NOTE | 2023-11-02 13:04 | A.OFFVIS_ITS ---
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 Allergies neff [CHERRIES] Allergy (Unknown, Verified 12/24/23 11:27) digestive issues (only with fresh) gluten [GLUTEN] Allergy (Unknown, Verified 12/24/23 11:27) digestive issues ibuprofen [From MOTRIN] Allergy (Unknown, Verified 12/24/23 11:27) UNKNOWN mayonnaise [MAYONNAISE] Allergy (Unknown, Verified 12/24/23 11:27) digestive issues Penicillins [PENICILLINS] Allergy (Unknown, Verified 12/24/23 11:27) UNKNOWN rosuvastatin [Crestor] Allergy (Unknown, Verified 12/24/23 11:27) unknown soy [SOY] Allergy (Unknown, Verified 12/24/23 11:27) digestive issue Sulfa (Sulfonamide Antibiotics) [SULFA (SULFONAMIDE ANTIBIOTICS)] Allergy (Unknown, Verified 12/24/23 11:27) unknown wheat [WHEAT] Allergy (Unknown, Verified 12/24/23 11:27) digestive issues lamotrigine [LAMOTRIGINE] Adverse Reaction (Intermediate, Verified 12/24/23 11:27) HEADACHES oxycodone [OXYCODONE] Adverse Reaction (Intermediate, Verified 12/24/23 11:27) racing thoughts APPLE JUICE Allergy (Unknown, Uncoded 12/24/23 11:27) digestive issues fresh sridevi cherries Allergy (Unknown, Uncoded 12/24/23 11:27) unknown HPI Comments Details: Brady is a pleasant male. He is a patient of Dr. Cheung. He seen for the following urologic conditions - lower urinary tract symptoms Episode of urinary retention in July with 400 cc in bladder PVR today is 0 cc Continue stability Six-month follow-up Lower urinary tract symptoms Progressive On alfuzosin Bladder ultrasound prostate 60 cc [facility] Medical History Hypothyroidism Bipolar disorder Presence of stent in LAD coronary artery Chronic kidney disease Ischemic colitis Schizoaffective disorder CAD (coronary artery disease) Surgical History S/P cardiac cath History of heart artery stent History of cholecystectomy History of appendectomy History of tonsillectomy Family History Father Liver cancer Monoallelic mutation of MET gene Mother Arthritis Cancer Pacemaker Sister Parkinson disease Other Mental health disorder Social History Housing: House Alcohol intake: current Alcohol intake frequency: a few times a week Alcohol type: wine Patient Tobacco Use Status: Current everyday Tobacco user Tobacco use type: Cigar Cigarette Packs Per Day: 0.5 Cigarettes Per Day: 10 Years Smoked: 12 years e-Cigarette/Vaping Use: Currently Using Second Hand Smoke Exposure: Yes Substance Use Type: Marijuana service: No Current occupational status: employed 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 Cognitive needs: No Hearing needs: No Vision needs: Yes (glasses) Review of Systems Const Denies chills and Denies fever(s) Card Reports no additional complaints and Denies syncope Resp Denies cough GI Denies abdominal pain and Denies heartburn Reports as per HPI and Denies change in libido Neuro Denies syncope Psych Denies change in libido Endo Denies change in libido Physical Exam Const General: cooperative, healthy appearing, comfortable and no acute distress Orientation/consciousness: patient oriented x3 HEENT Face and sinus: Yes normal facial exam Mouth: moist mucous membranes Neck Neck: Yes normal visual inspection, Yes full ROM and Yes trachea midline Chest Chest palpation & inspection: normal inspection of the chest Resp Effort & Inspection: normal respiratory effort, able to speak in complete sentences and no respiratory distress GI Inspection: Yes normal to inspection Back/Spine/Pelvis Cervical Spine: normal cervical lordosis Thoracic/Lumbar Spine: thoracic and lumbar spine normal to inspection Skin General skin exam: no rashes or lesions noted Neuro General: patient oriented x3, gait normal, tone normal and moves all extremities Extrem General: Yes normal to inspection and Yes capillary refill normal Office Procedures Post Void Residual Post Residual Void Post Void Residual (PVR): 0 [id number] Void Residual by ultrasound Results AMB Urinalysis, Automated UA Leukoctes 0 Candy/uL Last Edit by JOHN Huizar on 11/02/23 13:19 UA Nitrite Negative Last Edit by JOHN Huizar on 11/02/23 13:19 UA Urobilinogen 0.2 mg/dL Last Edit by JOHN Huizar on 11/02/23 13:1 9 UA Protein 0 mg/dL Last Edit [facility] on 11/02/23 13:19 UA pH 6.0 Last Edit by Marsha Banks [facility] on 11/02/23 13:19 UA Blood 0 Timothy/uL Last Edit by Marsha Banks [facility] on 11/02/23 13:19 UA Specific [place] 1.020 Last Edit by Marsha Banks [facility] on 11/02/23 13: 19 UA Ketone Negative Last Edit by Marsha Banks [facility] on 11/02/23 13:19 UA Bilirubin 0 mg/dL Last Edit by Marsha Banks [facility] on 11/02/23 13:19 UA Glucose 0 mg/dL Last Edit by Marsha Banks [facility] on 11/02/23 13:19 Results Reviewed Results Reviewed: Laboratory Last Values Urine pH (Auto) 6.0 11/02/23 13:19 Specific [place] (Auto) 1.020 11/02/23 13:19 Urine Protein (Auto) 0 mg/dL 11/02/23 13:19 Glucose (UA)(Auto) 0 mg/dL 11/02/23 13:19 Urine Ketones (Auto) Negative 11/02/23 13:19 Urine Blood (Auto) 0 Timothy/uL 11/02/23 13:19 Urine Nitrite (Auto) Negative 11/02/23 13:19 Urine Bilirubin (Auto) 0 mg/dL 11/02/23 13:19 Urine Urobilinogen (Auto) 0.2 mg/dL 11/02/23 13:19 Leukocyte Esterase (Auto) 0 Candy/uL 11/02/23 13:19 Assessment & Plan Assessment & Plan (1) BPH (benign prostatic hyperplasia): Code(s): N40.0 - Benign prostatic hyperplasia without lower urinary tract symptoms Category: Medical Qualifiers: Lower urinary tract symptom presence: symptoms present Lower urinary tract symptom detail: weak urinary stream Qualified Code(s): N40.1 - Benign prostatic hyperplasia with lower urinary tract symptoms; R39.12 - Poor urinary stream (2) Urinary retention: Code(s): R33.9 - Retention of urine, unspecified Category: Medical Plan Remain on alpha-danielle Six-month follow-up Orders: Orders AMB Urinalysis Automated 11/02/23 Z13.9 - Encounter for screening, unspecified Medications: Changed From alfuzosin ER administer after the same meal each day 10 mg PO DAILY 90 days 90 tabs 0RF N40.1 - Benign prostatic hyperplasia with lower urinary tract symptoms, N13.8 - Other obstructive and reflux uropathy To alfuzosin ER 10 mg PO BEDTIME 90 tabs 1RF 90 days N40.1 - Benign prostatic hyperplasia with lower urinary tract symptoms, N13.8 - Other obstructive and reflux uropathy Patient Instructions: Imaging studies, laboratory and physical exam results were discussed and reviewed in detail. No major barriers to patient understanding were identified. An opportunity to ask questions regarding the treatment plan was provided. All questions were answered. The patient expressed understanding and agreement with the above treatment plan. The patient is aware they should contact our office by phone for worsening of their current condition or the appearance of new urologic symptoms. Compliance is encouraged with any medications and followup testing that is ordered. It is a privilege to participate in the urologic care of your patient. If you have any questions or concerns regarding treatment for the above conditions, or other urologic issues, please do not hesitate to contact me. The office telephone contact is [phone]. This note is constructed using voice recognition software. While every effort has been made to ensure accuracy supervisor slate splitting errors may have been included. Yours sincerely, Dr Nathanael Rutledge MD, [facility] - Urology Providers of Expert, Compassionate Care for the Genitourinary System Coding Level of Care Code Est Pt Level 3 (68758) Diagnoses Benign prostatic hyperplasia with weak urinary stream N40.1; R39.12 Lower urinary tract symptom presence: symptoms present Lower urinary tract symptom detail: weak urinary stream Urinary retention R33.9 CPT Codes Post Residual Void - PVR CPT Code: [id number]-[id number] Void Residual by ultrasound ([id number])
== END 2023-11-02 13:38 | disposition home or self-care (01) ==
PROVIDERS: PCP Physician Assistant; Visit Provider Urology
DX: N40.1 Benign prostatic hyperplasia with lower urinary tract symptoms (principal); R39.12 Poor urinary stream; R33.9 Retention of urine, unspecified
CPT/HCPCS: 99213

== ENCOUNTER → 2023-11-02 12:58 | Outpatient (BNVA) | payer OTHER, SELFPAY | PROVIDERS: PCP Physician Assistant; Visit Provider Urology | DX: N40.1 Benign prostatic hyperplasia with lower urinary tract symptoms (principal); N13.8 Other obstructive and reflux uropathy | CPT/HCPCS: 51798; 81003; 99212 ==

== ENCOUNTER → 2023-11-14 10:22 | Outpatient (REF) | payer OTHER, SELFPAY ==
--- NOTE | 2023-11-14 10:24 | CA_ITS ---
Acquisition Time: 2023-11-14 10:44:07 Total Exercise Time: 00:10:07 Test Indications: Chest Pain Medications: ASA ALBUTEROL ATORVASTATIN FEXOFENADINE LEVOTHYROXINE TRAZADONE Protocol: DAWNA Max HR: 160 BPM 99% of Pred: 161 BPM Max BP: 154/068 mmHG Max Work Load: 11.9 METS Exercise stress test exercise 10 min 7 sec of Dawna protocol achieving approximately 84% MPHR, with mild SOB, no chest discomfort, with isolated PACs and PVCs, with normotensive response to exercise, without ST depressions. Echo images obtained by tech and immediately post peak exericse. Definity contrasr used. Test reviewed with Dr. Urbina. Referred By: Dago Mcgregor Overread By: Diana Aparicio
== END ==
LOC: HO.CARD 10:22
PROVIDERS: PCP Physician Assistant; Visit Provider Internal Medicine Cardiovascular Disease
DX: I25.810 Atherosclerosis of coronary artery bypass graft(s) without angina pectoris (principal)
CPT/HCPCS: 93350; Q9957

== ENCOUNTER → 2023-11-14 10:24 | Outpatient (BNV) | payer OTHER, SELFPAY | PROVIDERS: PCP Physician Assistant; Visit Provider Nurse Practitioner | DX: R06.02 Shortness of breath (principal); I27.20 Pulmonary hypertension, unspecified; I49.3 Ventricular premature depolarization; I49.1 Atrial premature depolarization | CPT/HCPCS: 93016; 93018; 93320; 93350; 93352 ==

== ENCOUNTER 2023-12-05 10:07 | Outpatient (AMB) | payer OTHER, SELFPAY ==
--- NOTE | 2023-12-05 10:31 | MHC.OFFWIV ---
Intake Vital Signs 12/05/23 10:33 Height 5 ft 5 in Weight 150 lb BMI 25.0 BP 120/86 Blood Pressure Location Lt brachial Position Sitting Pulse 61 Pulse Source Pulse Oximeter Temp 98.2 F Temp Source Oral Pulse Oximetry (%) 96 Oxygen Delivery Method Room Air Intake Visit Reasons: EP cough and cold Intake Note: Patient here for lingering cold that has been present for about 2 weeks. Patient Tobacco Use Status: Current everyday Tobacco user Allergies neff [CHERRIES] Allergy (Unknown, Verified 12/05/23 10:33) digestive issues (only with fresh) gluten [GLUTEN] Allergy (Unknown, Verified 12/05/23 10:33) digestive issues ibuprofen [From MOTRIN] Allergy (Unknown, Verified 12/05/23 10:33) UNKNOWN mayonnaise [MAYONNAISE] Allergy (Unknown, Verified 12/05/23 10:33) digestive issues Penicillins [PENICILLINS] Allergy (Unknown, Verified 12/05/23 10:33) UNKNOWN rosuvastatin [Crestor] Allergy (Unknown, Verified 12/05/23 10:33) unknown soy [SOY] Allergy (Unknown, Verified 12/05/23 10:33) digestive issue Sulfa (Sulfonamide Antibiotics) [SULFA (SULFONAMIDE ANTIBIOTICS)] Allergy (Unknown, Verified 12/05/23 10:33) unknown wheat [WHEAT] Allergy (Unknown, Verified 12/05/23 10:33) digestive issues lamotrigine [LAMOTRIGINE] Adverse Reaction (Intermediate, Verified 12/05/23 10:33) HEADACHES oxycodone [OXYCODONE] Adverse Reaction (Intermediate, Verified 12/05/23 10:33) racing thoughts APPLE JUICE Allergy (Unknown, Uncoded 12/05/23 10:33) digestive issues fresh sridevi cherries Allergy (Unknown, Uncoded 12/05/23 10:33) unknown Do you need a note to return to daycare/school/sports/work: No HPI HPI Comments History of Present Illness Details Patient is a 58-year-old male complaining of a cold for the last 2-3 weeks. He states he is feeling better overall but he has a lingering cough. He tells me all of his household has been sick and everyone is still recovering. He tells me he is an active smoker. Denies fevers, shortness of breath, ear pain, sinus pain or headaches. He tells me he has got a productive cough with clear sputum but he is not really getting much sputum up as well as a lot of nasal congestion and has been blowing his nose a lot. He tells me he is eating and drinking normally. [facility] Medical History Hypothyroidism Bipolar disorder Presence of stent in LAD coronary artery Chronic kidney disease Ischemic colitis Schizoaffective disorder CAD (coronary artery disease) Surgical History S/P cardiac cath History of heart artery stent History of cholecystectomy History of appendectomy History of tonsillectomy Family History Father Liver cancer Monoallelic mutation of MET gene Mother Arthritis Cancer Pacemaker Sister Parkinson disease Other Mental health disorder Social History Housing: House Alcohol intake: current Alcohol intake frequency: a few times a week Alcohol type: wine Patient Tobacco Use Status: Current everyday Tobacco user Tobacco use type: Cigar Cigarette Packs Per Day: 0.5 Cigarettes Per Day: 10 Years Smoked: 12 years e-Cigarette/Vaping Use: Currently Using Second Hand Smoke Exposure: Yes Substance Use Type: Marijuana service: No Current occupational status: employed 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 Cognitive needs: No Hearing needs: No Vision needs: Yes (glasses) Review of Systems Const All systems reviewed & are unremarkable except as noted in HPI and below Physical Exam Vital Signs: Last Vital Signs Temp 98.2 F 12/05/23 10:33 Pulse 61 12/05/23 10:33 BP 120/86 12/05/23 10:33 Pulse Ox 96 12/05/23 10:33 Oxygen Delivery Method Room Air 12/05/23 10:33 BMI result Body Mass Index 25.0 Const General: cooperative, healthy appearing, comfortable and no acute distress Orientation/consciousness: patient oriented x3 Limitations: no limitations HEENT Head: Yes normal to inspection Ears: hearing grossly normal bilaterally, external ears normal and TM's normal bilaterally General nose exam: Normal external nose present, Normal nares present and No nasal discharge present Face and sinus: Yes normal facial exam and Yes sinuses nontender Mouth: Normal oral and palatal mucosa present and moist mucous membranes Throat: Yes tonsils normal, Yes uvula midline and Yes posterior oropharynx abnormal (Erythema) Eyes General: appearance normal, both eyes and all related structures Neck Neck: Yes normal visual inspection Resp Effort & Inspection: normal respiratory effort, able to speak in complete sentences, Actively coughing, no respiratory distress, not tachypneic, no tripod positioning and no use of accessory muscles Auscultation: clear to auscultation bilaterally Cardio Rate: regular rate Rhythm: regular rhythm Heart sounds: normal S1 and S2 Skin General skin exam: no rashes or lesions noted Neuro General: patient oriented x3 Extrem General: Yes normal to inspection and Yes no clubbing, cyanosis or edema Assessment & Plan Assessment & Plan (1) URI (upper respiratory infection): Code(s): J06.9 - Acute upper respiratory infection, unspecified Qualifiers: URI type: unspecified URI Qualified Code(s): J06.9 - Acute upper respiratory infection, unspecified Plan: Vital signs stable, patient well-appearing and lung sounds are clear, sent flu COVID and RSV. If follow those are negative, we will send a Z-[place] as likely walking pneumonia. Plan See above Orders: Orders SARS-CoV2/FLU/RSV Today J06.9 - Acute upper respiratory infection, unspecified Coding Level of Care Code Est Pt Level 3 (02877) Diagnoses Upper respiratory tract infection, unspecified type J06.9 URI type: unspecified URI
[2023-12-05 10:33] VITALS: BP 120/86; PULSE 61; TEMP 36.8; O2SAT 96; BMI 25.0
== END 2023-12-05 11:10 | disposition home or self-care (01) ==
PROVIDERS: PCP Physician Assistant; Visit Provider Physician Assistant
DX: J06.9 Acute upper respiratory infection, unspecified (principal)

== ENCOUNTER 2023-12-05 10:07 | Outpatient (REF) | payer OTHER, SELFPAY ==
[2023-12-05 15:21] LABS: Influenza A PCR NEGATIVE (Negative); Influenza B PCR NEGATIVE (Negative); Resp Syncy Virus RNA Qual PCR NEGATIVE (Negative); SARS COV2 PCR INHOUSE NEGATIVE (Negative)
== END 2023-12-05 10:08 | disposition home or self-care (01) ==
LOC: HO.LAB 10:07
PROVIDERS: Physician Assistant; PCP Physician Assistant
DX: J06.9 Acute upper respiratory infection, unspecified (principal)
CPT/HCPCS: 0241U; 99212

== ENCOUNTER 2023-12-24 11:07 | Outpatient (AMB) | payer OTHER, SELFPAY ==
--- NOTE | 2023-12-24 11:10 | MHC.PC.OV ---
Vital Signs 12/24/23 11:16 Height 5 ft 5 in Weight 151 lb 6 oz BMI 25.2 BP 134/70 Blood Pressure Location Lt brachial Position Sitting Pulse 52 Pulse Source Pulse Oximeter Pulse Oximetry (%) 100 Oxygen Delivery Method Room Air Intake Visit Reasons: f/u CAD Allergies neff [CHERRIES] Allergy (Unknown, Verified 12/24/23 11:27) digestive issues (only with fresh) gluten [GLUTEN] Allergy (Unknown, Verified 12/24/23 11:27) digestive issues ibuprofen [From MOTRIN] Allergy (Unknown, Verified 12/24/23 11:27) UNKNOWN mayonnaise [MAYONNAISE] Allergy (Unknown, Verified 12/24/23 11:27) digestive issues Penicillins [PENICILLINS] Allergy (Unknown, Verified 12/24/23 11:) UNKNOWN rosuvastatin [Crestor] Allergy (Unknown, Verified 12/24/23 11:) unknown soy [SOY] Allergy (Unknown, Verified 12/24/23 11:27) digestive issue Sulfa (Sulfonamide Antibiotics) [SULFA (SULFONAMIDE ANTIBIOTICS)] Allergy (Unknown, Verified 12/24/23 11:27) unknown wheat [WHEAT] Allergy (Unknown, Verified 12/24/23 11:27) digestive issues lamotrigine [LAMOTRIGINE] Adverse Reaction (Intermediate, Verified 12/24/23 11:27) HEADACHES oxycodone [OXYCODONE] Adverse Reaction (Intermediate, Verified 12/24/23 11:27) racing thoughts APPLE JUICE Allergy (Unknown, Uncoded 12/24/23 11:27) digestive issues fresh sridevi cherries Allergy (Unknown, Uncoded 12/24/23 11:27) unknown Medication List - Last Reconciled 12/24/23 by Omid Cheung PA-C albuterol sulfate 90 mcg/actuation 1 puff inhalation Q6-8H PRN 30 days alfuzosin ER 10 mg PO BEDTIME 90 days aspirin 81 mg PO DAILY atorvastatin 80 mg PO DAILY azithromycin For 250 mg dose pack: take 500 mg today (day 1), then 250 mg for 4 days (days 2-5) PO benztropine mg PO fexofenadine 180 mg PO DAILY 90 days levothyroxine 25 mcg PO DAILY 90 days lorazepam 1 mg PO DAILY PRN lurasidone 20 mg PO BEDTIME nitroglycerin 0.4 mg sublingual Q5M trazodone 50 mg PO BEDTIME PRN Tobacco use date assessed: 06/18/23 Dental Screening Dental Screen Date: 06/18/23 HPI f/u CAD HPI Details Patient is a 58-year-old male here today for follow-up. Patient has a past medical history significant for obesity, hyperlipidemia, CKD, hypertrophic cardiomyopathy, tobacco dependency, schizoaffective disorder, major depressive disorder, anxiety disorder, coronary artery disease with a history of stent placement in his LAD. .. Schizoaffective disorder/bipolar disorder: He is seeing a therapist and psychiatrist. Has been able to get off alot of mental health meds. Has lost a significant amount of weight since reducing his mental health medications. He now has a new partner that helps him with his mental health as well. .. Coronary artery disease: Has lost follow-up with [facility] and is looking to reestablish with [facility].. Has been making extensive lifestyle modifications and has lost a lot of weight. Otherwise he denies any further chest discomfort, palpitations, dizziness or headaches. Unfortunately continues to smoke 4-5 cigars per day, he does understand that smoking is a large risk factor for recurrent cardiovascular disease and will continue to work on reducing his smoking. OF NOTE DID STOP ATORVASTATIN ON HIS OWN DUE TO FEARS LONG-TERM SIDE EFFECTS. .. Hypothyroid: Patient continues on levothyroxine 25 mcg with good effect. Recheck TSH to assure normal. Patient has been able to lose a lot of weight with lifestyle modifications recently. Laboratory Tests 12/16/18 03/05/19 06/13/22 17:03 10:15 11:33 RBC 5.39 D Hgb 16.8 D Creatinine 1.35 Cholesterol 239 LDL Cholesterol, C alc Total PSA 0.81 PSA Screen 10/26/22 06/18/23 07/19/23 12:30 13:06 18:34 RBC 4.73 Hgb Creatinine Cholesterol LDL Cholesterol, C alc 76 Total PSA PSA Screen [facility] Medical History Hypothyroidism Bipolar disorder Presence of stent in LAD coronary artery Chronic kidney disease Ischemic colitis Schizoaffective disorder CAD (coronary artery disease) Surgical History S/P cardiac cath History of heart artery stent History of cholecystectomy History of appendectomy History of tonsillectomy Family History Father Liver cancer Monoallelic mutation of MET gene Mother Arthritis Cancer Pacemaker Sister Parkinson disease Other Mental health disorder Social History Housing: House Alcohol intake: current Alcohol intake frequency: a few times a week Alcohol type: wine Patient Tobacco Use Status: Current everyday Tobacco user Tobacco use type: Cigar Cigarette Packs Per Day: 0.5 Cigarettes Per Day: 10 Years Smoked: 12 years e-Cigarette/Vaping Use: Currently Using Second Hand Smoke Exposure: Yes Substance Use Type: Marijuana service: No Current occupational status: employed 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 Rome Burdick, Jayda Lizarraga, Irvin Siddiqi and colleagues, with an educational sophie from [employer]. Review of Systems Const Denies headache(s) Eyes Denies loss of vision ENT Denies vertigo, Denies dizziness, Denies headache(s) and Denies sore throat Card Denies chest pain, Denies leg edema and Denies lightheadedness Resp Denies cough, Denies hemoptysis and Denies wheezing GI Denies abdominal pain, Denies melena, Denies constipation, Denies diarrhea and Denies vomiting Denies dysuria, Denies urinary frequency and Denies urinary urgency Musc Denies arthralgias, Denies joint swelling, Denies numbness and Denies tingling Neuro Denies Abnormal speech present, Denies behavioral changes, Denies vertigo, Denies dizziness, Denies headache(s), Denies loss of vision, Denies memory loss, Denies numbness and Denies tingling Psych Denies anxiety, Denies behavioral changes, Denies depression, Denies memory loss and Denies panic attacks Jj/Lymph Denies easy bleeding and Denies easy bruising Aller/Immun Denies wheezing Physical exam (Primary Care) Vital Signs: Last Vital Signs Pulse 52 12/24/23 11:16 BP 134/70 12/24/23 11:16 Pulse Ox 100 12/24/23 11:16 Oxygen Delivery Method Room Air 12/24/23 11:16 BMI result Body Mass Index 25.2 Tobacco/Smoking Status: Tobacco use Status Tobacco use date assessed 06/18/23 12/24/23 11:11 Patient Tobacco Use Status Current everyday Tobacco 12/24/23 11:11 Tobacco use type Cigar 12/24/23 11:11 e-Cigarette/Vaping Use Currently Using 12/24/23 11:11 Are you ready to quit: No Tobacco cessation counseling provided: Yes Items discussed: Nicotine replacement Relapse Prevention: discussed the importance of a supportive environment, discussed negative mood or depression after quitting, weight gain after smoking is common and discussed dietary, exercise and/or lifestyle changes Number of minutes spent counselin CPT code: 96829 - 4-10 Minutes Thrive Assessment: Date of Thrive Assessment Date Thrive assessed 06/18/23 12/24/23 11:11 Const General: healthy appearing, no acute distress, alert and awake Nutritional Appearance: well nourished Orientation/consciousness: oriented to person, oriented to place and oriented to time HENMT Ears: TM's normal bilaterally General nose exam: Normal nasal mucous membranes and turbinates present Eyes Conjunctivae: conjunctivae normal Sclerae: sclerae normal Pupils: Equal, round and reactive pupils present Neck Neck: Yes no lymphadenopathy and Yes no JVD Thyroid: Thyroid normal Carotids: no bruits Resp Effort & Inspection: normal respiratory effort and not tachypneic Auscultation: no crackles, no rales, no rhonchi and no wheezes Cardio Rate: regular rate Rhythm: regular rhythm Heart sounds: Murmur heart sound present systolic and normal S1 and S2 GI Palpation (GI): Soft to palpation, nontender, no hepatomegaly and no splenomegaly Auscultation: normal bowel sounds Skin General skin exam: no rashes or lesions noted and dry skin Neuro General: oriented to person, oriented to place and oriented to time Cranial nerves: Yes Equal, round and reactive pupils present Speech: No Abnormal speech present Gait exam (Neuro): Normal gait present Motor exam (neuro): no tremor noted Extrem Right upper extremity: full ROM Left upper extremity: full ROM Right lower extremity: full ROM; no edema Left lower extremity: full ROM; no edema Psych Mental Status: mental status grossly normal Speech and movement: Normal speech and movement present Affect: normal affect Attitude: cooperative Thought process: Normal thought process present Coding Level of Care Code Est Pt Level 4 (96342) Diagnoses Acquired hypothyroidism E03.9 Hypothyroidism type: acquired Mixed hyperlipidemia E78.2 Hyperlipidemia type: mixed hyperlipidemia Coronary artery disease involving coronary bypass graft of [place] heart without angina pectoris I25.810 Coronary Disease-Associated Artery/Lesion type: bypass graft [place] vs. transplanted heart: [place] heart Associated angina: without angina Stage 3 chronic kidney disease, unspecified whether stage 3a or 3b CKD N18.30 Chronic kidney disease stage 3 subtype: unspecified whether 3a or 3b Tobacco dependence F17.200 Systolic murmur R01.1 Additional Codes Vital Signs *Quality* - CPT code: 41146 - 4-10 Minutes ([id number]) Assessment & Plan Assessment & Plan (1) Hypothyroidism: Code(s): E03.9 - Hypothyroidism, unspecified Category: Medical Qualifiers: Hypothyroidism type: acquired Qualified Code(s): E03.9 - Hypothyroidism, unspecified Plan: Patient's most recent TSH stable. Continues on levothyroxine 25 mcg. (2) HLD (hyperlipidemia): Code(s): E78.5 - Hyperlipidemia, unspecified Category: Medical Qualifiers: Hyperlipidemia type: mixed hyperlipidemia Qualified Code(s): E78.2 - Mixed hyperlipidemia Plan: Patient most recent lipid panel excellent. He has stopped taking his atorvastatin due to fears of side effects. He does understand he is at high cardiovascular risks due to already having coronary artery stent. Goal LDL is to be optimally below 70 (3) CAD (coronary artery disease): Code(s): I25.10 - Atherosclerotic heart disease of [place] coronary artery without angina pectoris Category: Medical Qualifiers: Coronary Disease-Associated Artery/Lesion type: bypass graft [place] vs. transplanted heart: [place] heart Associated angina: without angina Qualified Code(s): I25.810 - Atherosclerosis of coronary artery bypass graft(s) without angina pectoris Plan: As above patient is optimal LDL to be below 70. He has stopped using atorvastatin 80 mg due to fears of side effects and long-term effects. He does understand he is at high CV risk due to his already established coronary artery disease. (4) CKD (chronic kidney disease) stage 3, GFR 30-59 ml/min: Code(s): N18.30 - Chronic kidney disease, stage 3 unspecified Category: Medical Qualifiers: Chronic kidney disease stage 3 subtype: unspecified whether 3a or 3b Qualified Code(s): N18.30 - Chronic kidney disease, stage 3 unspecified Plan: Seems to have resolved since making better lifestyle choices. Most recent GFR much improved. (5) Tobacco dependence: Code(s): F17.200 - Nicotine dependence, unspecified, uncomplicated Category: Medical Plan: Patient does admit to smoking cigarettes from time to time now. He does understand he needs to completely quit due to his cardiovascular risk (6) Systolic murmur: Code(s): R01.1 - Cardiac murmur, unspecified Category: Medical Plan: Noted grade 2 systolic murmur. Will send for echocardiogram to evaluate for valvular disease. No overt signs of Congestive heart failure. Orders: Orders Influenza [id number] Immunization Today Z23 - Encounter for immunization CA echo transthoracic complete Today I25.810 - Atherosclerosis of coronary artery bypass graft(s) without angina pectoris, R01.1 - Cardiac murmur, unspecified Pneumococcal 20 Immunization Today R01.1 - Cardiac murmur, unspecified, Z23 - Encounter for immunization Medications: New Fluarix Triv [id number] (PF) (flu vacc [id number] 6mos up(PF)) 0.5 mL IM ONCE 0.5 mL 0RF NS Z23 - Encounter for immunization pneumoc 20-susan conj-dip cr(PF) 0.5 mL IM ONCE 0.5 mL 0RF R01.1 - Cardiac murmur, unspecified, Z23 - Encounter for immunization Discontinued azithromycin Discontinued Reason: Doctor's Order For 250 mg dose pack: take 500 mg today (day 1), then 250 mg for 4 days (days 2-5) PO 6 tabs 0RF Patient Instructions: Goal: Blood pressure to remain below 140/90, LDL to be optimally below 70 Barriers: Adherence to physical activity and healthy eating habits
[2023-12-24 11:16] VITALS: BP 134/70; PULSE 52; O2SAT 100; BMI 25.2
== END 2023-12-24 11:47 | disposition home or self-care (01) ==
LOC: HO.HMCH 11:07
PROVIDERS: PCP Physician Assistant; Visit Provider Physician Assistant
DX: E03.9 Hypothyroidism, unspecified (principal); E78.2 Mixed hyperlipidemia; I25.810 Atherosclerosis of coronary artery bypass graft(s) without angina pectoris; N18.30 Chronic kidney disease, stage 3 unspecified; F17.200 Nicotine dependence, unspecified, uncomplicated; R01.1 Cardiac murmur, unspecified; Z23 Encounter for immunization

== ENCOUNTER → 2023-12-24 11:07 | Outpatient (BNVA) | payer OTHER, SELFPAY | PROVIDERS: PCP Physician Assistant; Visit Provider Physician Assistant | DX: Z23 Encounter for immunization (principal); E03.9 Hypothyroidism, unspecified; E78.2 Mixed hyperlipidemia; I25.810 Atherosclerosis of coronary artery bypass graft(s) without angina pectoris; N18.30 Chronic kidney disease, stage 3 unspecified; R01.1 Cardiac murmur, unspecified; F17.200 Nicotine dependence, unspecified, uncomplicated; Z71.6 Tobacco abuse counseling | CPT/HCPCS: 90471; 90656; 90677; 99212 ==

== ENCOUNTER → 2024-01-15 13:35 | Outpatient (REF) | payer OTHER, SELFPAY ==
--- NOTE | 2024-01-15 13:37 | CA_ITS ---
Transthoracic Echocardiogram Patient (Last, First, Middle): Brady Rueda C Gender: Male Date of : 1965 Age: 58 Procedure Date: 01/15/2024 Procedure Type: Transthoracic Echocardiogram Location: OP Height: 165.1 cm Weight: 69.4 kg BSA: 1.77 m2 Heart Rate: bpm BP: 115 / 56 mmHg Bank Boss: Referring MD: Omid Cheung PA-C Symptoms: R01.1 - Cardiac murmur, unspecified Study Quality: Adequate ECG Rhythm: Sinus Conclusions: - The left ventricular systolic function is hyperdynamic. The calculated ejection fraction is 70% by biplane method. - There is moderately increased left ventricular wall thickness. - No obvious valvular pathology seen on this study. Findings Left Ventricle Normal left ventricular cavity size. There is moderately increased left ventricular wall thickness. The left ventricular systolic function is hyperdynamic. The calculated ejection fraction is 70% by biplane method. There is no evidence of regional wall motion abnormalities. There is no dynamic left ventricular outflow tract obstruction. Evidence suggests grade I (mild) diastolic dysfunction. Peak resting LVOT gradient 15 mmHg. With a Valsalva, 32 mmHg. Right Ventricle Normal right ventricular cavity size and systolic function. Atria The left atrium is moderately dilated. The right atrium is normal in size. Aortic Valve The aortic valve was not well visualized. There is no aortic valve stenosis. There is no aortic valve regurgitation. Mitral Valve The mitral valve appears normal. There is no mitral valve regurgitation. There is no mitral valve stenosis. There is systolic anterior motion of the chordae of the mitral valve. Pulmonic Valve The pulmonic valve was not well visualized. Tricuspid Valve There is mild tricuspid valve regurgitation. There is no evidence of pulmonary hypertension. Great Vessels The aorta was not well visualized. The sinuses of valsalva is normal in size. Venous The inferior vena cava is normal in size and collapses greater than 50% with inspiration. Pericardium/Pleural There is no evidence of pericardial effusion. Prior Study Comparison No significant change compared to prior study dated: 06/05/2018. Recommendations, Care & Conclusions No obvious valvular pathology seen on this study. Measurements 2D Linear Measurements IVSd: 1.60 0.6-0.9/0.6-1.0 cm LVIDd: 5.10 3.9-5.3/4.2-5.9 cm LVIDd Index: 2.88 2.4-3.2/2.2-3.1 cm/m2 LVIDs: 3.38 2.0-3.6 cm LVPWd: 1.46 0.7-1.1 cm Ao Root: 3.00 2.1-3.5 cm LA Diam: 3.90 2.7-3.8/3.0-4.0 cm LAIDs Index: 2.20 1.5-2.3 cm/m2 LV Mass: 427.11 67-162/88-224 g LV Mass Index: 241.31 43-95/49-115 g/m2 LVOT Diam: 2.10 3.0+(-)1.3 cm 2D Systolic Function EF 4C: 70.00 >55% EF 2C: 70.20 >55% EF BiP: 70.20 >55% Mitral Valve MV Pk E: 0.61 MV PK A: 0.61 MV Decel Time: 583.00 E/A: 1.00 E'Lateral: 7.94 E'Medial: 3.05 E/E' Med: 20.10 E/E' Lat: 7.70 PHT: 171.00 MVA PHT: 1.29 Decel Vermillion: 1.05 Aortic Valve AoV Pk Murray: 2.43 AoV Mn Murray: 1.42 AoV VTI: 0.47 AoV Pk Grad: 24.00 Aov Mn Grad: 10.00 ANDERSON Cont.VTI: 2.23 LVOT LVOT Pk Murray: 1.35 LVOT Mn Murray: 1.01 LVOT VTI: 0.31 LVOT Pk Grad: 7.00 LVOT Mn Grad: 5.00 LVOT Diam: 2.10 LVOT Area: 3.46 Diastolic Function MV Pk E: 0.61 MV Pk A: 0.61 E/A: 1.00 E'Medial: 3.05 E/E' Med: 20.10 E' Laterial: 7.94 E/E' Lat: 7.70 Right Ventricle TAPSE (mm): 25.00 TVS' Murray: 10.00 Tricuspid Valve TR Pk Murray: 2.21 TR Pk Grad: 20.00 RA Press: 3.00 RVSP: 23.00 Great Vessels Aorta Ao Root-2D: 3.00 2.0-3.7 cm Updated in Other Vendor System with Status of Final Stiven Urbina MD electronically signed on 01/17/2024 12:31:43 PM with status of Final
== END ==
LOC: HO.CARD 13:35
PROVIDERS: PCP Physician Assistant; Visit Provider Physician Assistant
DX: R01.1 Cardiac murmur, unspecified (principal); I25.810 Atherosclerosis of coronary artery bypass graft(s) without angina pectoris
CPT/HCPCS: 93306

== ENCOUNTER → 2024-01-15 13:37 | Outpatient (BNV) | payer OTHER, SELFPAY | PROVIDERS: PCP Physician Assistant; Visit Provider Internal Medicine | DX: I36.1 Nonrheumatic tricuspid (valve) insufficiency (principal); I34.89 Other nonrheumatic mitral valve disorders | CPT/HCPCS: 93306 ==

== ENCOUNTER 2024-01-30 14:20 | Outpatient (AMB) | payer OTHER, SELFPAY ==
[2024-01-30 14:37] VITALS: BP 108/56; PULSE 52; BMI 24.6
--- NOTE | 2024-01-30 14:37 | A.OFFVIS_ITS ---
Vital Signs 01/30/24 14:37 Height 5 ft 5 in Weight 147 lb 11.355 oz BMI 24.6 BP 108/56 L Blood Pressure Location Lt brachial Position Sitting Pulse 52 Pulse Source Pulse Oximeter Intake Visit Reasons: 3 mth f/up mibi Intake Note: Pt states that he stopped statin a few months ago. 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 Accompanied by: Self / Same As Patient Allergies neff [CHERRIES] Allergy (Unknown, Verified 12/24/23 11:27) digestive issues (only with fresh) gluten [GLUTEN] Allergy (Unknown, Verified 12/24/23 11:27) digestive issues ibuprofen [From MOTRIN] Allergy (Unknown, Verified 12/24/23 11:27) UNKNOWN mayonnaise [MAYONNAISE] Allergy (Unknown, Verified 12/24/23 11:) digestive issues Penicillins [PENICILLINS] Allergy (Unknown, Verified 12/24/23 11:) UNKNOWN rosuvastatin [Crestor] Allergy (Unknown, Verified 12/24/23 11:) unknown soy [SOY] Allergy (Unknown, Verified 12/24/23 11:27) digestive issue Sulfa (Sulfonamide Antibiotics) [SULFA (SULFONAMIDE ANTIBIOTICS)] Allergy (Unknown, Verified 12/24/23 11:27) unknown wheat [WHEAT] Allergy (Unknown, Verified 12/24/23 11:27) digestive issues lamotrigine [LAMOTRIGINE] Adverse Reaction (Intermediate, Verified 12/24/23 11:27) HEADACHES oxycodone [OXYCODONE] Adverse Reaction (Intermediate, Verified 12/24/23 11:27) racing thoughts APPLE JUICE Allergy (Unknown, Uncoded 12/24/23 11:27) digestive issues fresh sridevi cherries Allergy (Unknown, Uncoded 12/24/23 11:27) unknown Medication List - Last Reconciled 01/30/24 by Dago Mcgregor MD albuterol sulfate 90 mcg/actuation 1 puff inhalation Q6-8H PRN 30 days alfuzosin ER 10 mg PO BEDTIME 90 days aspirin 81 mg PO DAILY benztropine mg PO fexofenadine 180 mg PO DAILY 90 days levothyroxine 25 mcg PO DAILY 90 days lorazepam 1 mg PO DAILY PRN lurasidone 40 mg PO BEDTIME nitroglycerin 0.4 mg sublingual Q5M trazodone 50 mg PO BEDTIME PRN HPI Comments Details: 58-year-old gentleman here for follow-up. He was taken for cardiac catheterization after an abnormal stress tests performed for exertional chest tightness. Cardiac catheterization revealed severe proximal LAD stenosis which was treated with a drug-eluting stent with OCT guidance. He has a hypertrophic cardiomyopathy. He underwent cardiac event monitor in 2019 which did not show any PVCs or nonsustained VT. He had a cardiac MRI which showed delayed gadolinium enhancement and he was referred to electrophysiology. He was seen by Dr. Valle and it was felt that he is not high risk for arrhythmia. No ICD was indicated. He continues to smoke half a pack per day. Denying any chest pain or shortness of breath. He recently started seeing a different psychiatrist. He was told that his Seroquel (which he was on 800 mg daily) can be the cause for his hypertriglyceridemia. He has been cutting back on the Seroquel with the help of his psychiatrist and is down to 750 mg daily. He has not had a repeat repeat lipid panel since last year. 08/30/22: Sinus bradycardia 50 beats per minute, normal axis, lateral and inferior T-wave inversions due to underlying hypertrophic cardiomyopathy. QTC 428 milliseconds. Today he returns for follow-up. He has been exercising and losing weight. He is eating organic food. He is still smoking at this stage. He is asking that given the fact that he has lost weight and is exercising can he cut back on his atorvastatin from 80-40 mg. He has no chest pain or shortness of breath. We discussed about smoking cessation again. 12/13/2022: He returns for follow-up. He has stop smoking cigarettes but has been smoking cigars and smokes marijuana. He is denying any chest tightness or significant shortness of breath. Blood pressure control is good. He has been taking the atorvastatin. His last LDL cholesterol was good. 10/01/2023: He is here for follow-up. He was doing fine until 2 weeks ago when started having chest tightness. This is similar to his symptoms when he had coronary disease in the past diagnosed and had LAD PCI. He has chronic T-wave changes on the ECG due to hypertrophic cardiomyopathy. He continues to smoke unfortunately. He had few episodes in the last 2 weeks mostly with activity. No rest discomfort. He is asking whether he can stop atorvastatin. He continues to take baby aspirin. Due to low blood pressure his metoprolol was discontinued by the primary care physician appropriately. 01/30/2024: Brady returns for follow-up. He had stress echocardiogram which was normal. He also had an echocardiogram which did not show any wall motion abnormalities. He is saying since then he has been doing well and had 1 episode of chest discomfort for which he is used nitroglycerin approximately 2 months ago. He continues to be active at work without any exertional symptoms. He unfortunately continues to smoke 2. [facility] Medical History Hypothyroidism Bipolar disorder Presence of stent in LAD coronary artery Chronic kidney disease Ischemic colitis Schizoaffective disorder CAD (coronary artery disease) Surgical History (Reviewed 01/30/24 @ 14:43 by Josee Aaron [facility]) S/P cardiac cath History of heart artery stent History of cholecystectomy History of appendectomy History of tonsillectomy Family History (Reviewed 01/30/24 @ 14:43 by Josee Aaron [facility]) Father Liver cancer Monoallelic mutation of MET gene Mother Arthritis Cancer Pacemaker Sister Parkinson disease Other Mental health disorder Social History (Reviewed 01/30/24 @ 14:43 by Josee Aaron [facility]) Housing: House Alcohol intake: current Alcohol intake frequency: a few times a week Alcohol type: wine Patient Tobacco Use Status: Current everyday Tobacco user Tobacco use type: Cigar Cigarette Packs Per Day: 0.5 Cigarettes Per Day: 10 Years Smoked: 12 years e-Cigarette/Vaping Use: Currently Using Second Hand Smoke Exposure: Yes Substance Use Type: Marijuana service: No Current occupational status: employed 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 Cognitive needs: No Hearing needs: No Vision needs: Yes (glasses) Review of Systems Const Denies chills, Denies fatigue, Denies fever(s), Denies weight gain and Denies weight loss ENT Denies dizziness Card Denies chest pain, Denies leg edema, Denies lightheadedness, Denies palpitations, Reports dyspnea, Denies dyspnea on exertion, Denies orthopnea and Denies other Resp Denies cough, Reports dyspnea and Denies dyspnea on exertion GI Denies hematochezia and Denies change in stool character Musc Denies abnormal gait, Denies muscle weakness, Denies numbness, Denies radiating pain into limb and Denies tingling Neuro Denies abnormal gait, Denies dizziness, Denies numbness and Denies tingling Endo Denies fatigue and Denies palpitations Physical Exam Vital Signs: Last Vital Signs Pulse 52 01/30/24 14:37 BP 108/56 L 01/30/24 14:37 BMI result Body Mass Index 24.6 GENERAL APPEARANCE: in no acute distress, pleasant. NECK: no carotid bruit, no jugular venous distention. SKIN: no suspicious lesions, warm and dry. HEART: Systolic murmur all over the precordium, regular rate and rhythm. LUNGS: clear to auscultation bilaterally. ABDOMEN: soft, nontender. EXTREMITIES: no edema. PERIPHERAL PULSES: equal. NEUROLOGIC: No gross deficits, AAO X 3 Assessment & Plan Assessment & Plan (1) Hypertrophic cardiomyopathy: Code(s): I42.2 - Other hypertrophic cardiomyopathy Category: Medical (2) CAD (coronary artery disease): Code(s): I25.10 - Atherosclerotic heart disease of [place] coronary artery without angina pectoris Category: Medical Qualifiers: Coronary Disease-Associated Artery/Lesion type: bypass graft [place] vs. transplanted heart: [place] heart Associated angina: without angina Qualified Code(s): I25.810 - Atherosclerosis of coronary artery bypass graft(s) without angina pectoris Plan 58-year-old gentleman here for follow-up. Has known history of coronary disease and underwent LAD PCI in the past. He unfortunately has started smoking cigars. He has also background of hypertrophic cardiomyopathy and was seen by electrophysiology in the past and was deemed low risk for sudden cardiac and ICD was not implanted. He was seen in September 2023 with chest discomfort. He was referred for exercise stress echo where no regional wall motion abnormalities were noted after exercise. He also did not have chest discomfort with exercise. He had an echocardiogram subsequently which did not show any significant wall motion abnormality or other concerns. He continues to smoke which is a problem because it puts him at risk for acute plaque rupture and he previously had plaque rupture in LAD and had PCI at that time. He is overall stable right now. I have advised him that if he has any recurrent symptoms then he should reach out to us. In that case I will arrange a diagnostic angiogram. Follow-up with us in 3-4 months. Thank you for allowing me to participate in the care of your patient. Please feel free to contact me if you have any questions. Coding Level of Care Code Est Pt Level 4 (35306) Diagnoses Hypertrophic cardiomyopathy I42.2 Coronary artery disease involving coronary bypass graft of [place] heart without angina pectoris I25.810 Coronary Disease-Associated Artery/Lesion type: bypass graft [place] vs. transplanted heart: [place] heart Associated angina: without angina
== END 2024-01-30 15:04 | disposition home or self-care (01) ==
PROVIDERS: PCP Physician Assistant; Visit Provider Internal Medicine Cardiovascular Disease
DX: I42.2 Other hypertrophic cardiomyopathy (principal); I25.810 Atherosclerosis of coronary artery bypass graft(s) without angina pectoris
CPT/HCPCS: 99214

== ENCOUNTER → 2024-01-30 14:20 | Outpatient (BNVA) | payer OTHER, SELFPAY | PROVIDERS: PCP Physician Assistant; Visit Provider Internal Medicine Cardiovascular Disease | DX: I42.2 Other hypertrophic cardiomyopathy (principal); I25.810 Atherosclerosis of coronary artery bypass graft(s) without angina pectoris; Z87.891 Personal history of nicotine dependence | CPT/HCPCS: 99212 ==

== ENCOUNTER 2024-03-24 12:52 | Outpatient (AMB) | payer OTHER, SELFPAY ==
--- NOTE | 2024-03-24 13:28 | AM.OFFVISNUR ---
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 neff [CHERRIES] Allergy (Unknown, Verified 12/24/23 11:) digestive issues (only with fresh) gluten [GLUTEN] Allergy (Unknown, Verified 12/24/23 11:) digestive issues ibuprofen [From MOTRIN] Allergy (Unknown, Verified 12/24/23 11:) UNKNOWN mayonnaise [MAYONNAISE] Allergy (Unknown, Verified 12/24/23 11:) digestive issues Penicillins [PENICILLINS] Allergy (Unknown, Verified 12/24/23 11:) UNKNOWN rosuvastatin [Crestor] Allergy (Unknown, Verified 12/24/23 11:) unknown soy [SOY] Allergy (Unknown, Verified 12/24/23 11:) digestive issue Sulfa (Sulfonamide Antibiotics) [SULFA (SULFONAMIDE ANTIBIOTICS)] Allergy (Unknown, Verified 12/24/23 11:) unknown wheat [WHEAT] Allergy (Unknown, Verified 12/24/23 11:) digestive issues lamotrigine [LAMOTRIGINE] Adverse Reaction (Intermediate, Verified 12/24/23 11:) HEADACHES oxycodone [OXYCODONE] Adverse Reaction (Intermediate, Verified 12/24/23 11:) racing thoughts APPLE JUICE Allergy (Unknown, Uncoded 12/24/23 11:) digestive issues fresh sridevi cherries Allergy (Unknown, Uncoded 12/24/23 11:) unknown Office Meds tuberculin PPD 5 tub. unit/0.1 mL intradermal injection solution Performing Provider: Omid Cheung PA-C [facility] Administered by: Judy Sewell LPN on 03/24/24 13:28 Dose Route Admin Location Dispensed Lot Number Expiration Date 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
--- OUTSIDE RECORDS SUMMARY | 2024-03-24 14:11 | XMS_ITS | Clinical Summary ---
Author Organization [facility] Address [address] [place] [address] Care Team Providers Care Private Detective Name Role Phone Basil Hale MD Primary Care Provider Unava ilable Social History Tobacco Use Types Packs/Day Years Used Date Smoking Tobacco: Never Assessed Sex and Gender Information Value Date Recorded Sex Assigned at Not on file Gender Identity Not on file Sexual Orientation Not on file Plan of Treatment Health Maintenance Due Date Last Done Comments COVID-19 Vaccine (#1) 1969 Pneumococcal Vaccine: Pediatrics (0 to 5 Years) and At-Risk Patients (6 to 64 Years) (1 of 2 - PCV) 1970 Hepatitis B Vaccines (1 of 3 - 19+ 3-dose series) 06/11/1983 Zoster Vaccines (1 of 2) 06/11/1983 DTaP,Tdap,and Td Vaccines (2 - Td or Tdap) 12/30/2018 12/30/2008 Cholesterol Screening (Lipid Panel) 01/21/2022 Colorectal Cancer Screening: Colonoscopy 01/21/2022 Depression Screening 01/21/2022 HIV Screening 01/21/2022 Hepatitis C Screening 01/21/2022 Social Influencers of Health Screening 01/21/2022 Hypertension/CHF/CAD Annual BMP Blood Test 02/02/2022 Influenza Vaccine (#1) 2023 7, 01/09/2011, 02/03/2009, Additional history exists RSV Immunization Patients 60+ Years Old (1 - 1-dose 75+ series) 06/11/2039 HIB Vaccines Aged Out No longer eligi ble based on patient's age to complete this topic HPV Vaccines Aged Out No longer eligi ble based on patient's age to complete this topic Hepatitis A Vaccines Aged Out No long er eligible based on patient's age to complete this topic IPV Vaccines Aged Out No longer eligi ble based on patient's age to complete this topic MMR Vaccines Aged Out No longer eligi ble based on patient's age to complete this topic Meningococcal ACWY Vaccine Aged Out N o longer eligible based on patient's age to complete this topic RSV Immunization Patients Under 20 months Aged Out No longer eligible based on patient's age to complete this topic Varicella Vaccines Aged Out No longer eligible based on patient's age to complete this topic Care Teams Private Detective Relationship Specialty Start Date End Date Basil Hale MD PCP - General 02/18/17
--- OUTSIDE RECORDS SUMMARY | 2024-03-24 14:11 | XMS_ITS | Clinical Summary ---
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 Role Phone Unavailable Primary Care Provider Unavailabl e Allergies Active Allergy Reactions Criticality Noted Date Comments Apple Juice 09/05/2021 Monet 09/05/2021 Gluten Meal 09/05/2021 Ibuprofen 09/05/2021 Penicillin G 09/05/2021 Rosuvastatin Other (see comments) 09/05/2021 Soybean-Containing Drug Products Sulfa Antibiotics 09/05/2021 Wheat Other (see comments) 09/05/2021 Medications albuterol HFA (PROVENTIL HFA;VENTOLIN HFA) 108 (90 Base) MCG/ACT inhaler Inhale 2 puffs every 6 (six) hours if needed for wheezing Active aspirin (ST SHERRI) 81 MG EC tablet Take 81 mg by mouth 1 (one) time each day Active atorvastatin (LIPITOR) 80 MG tablet Take 80 mg by mouth 1 (one) time each day Active benztropine (COGENTIN) 1 MG tablet Take 1 mg by mouth in the morning and 1 mg in the evening. Active busPIRone (BUSPAR) 15 MG tablet Take 15 mg by mouth at bed time Active clopidogrel (PLAVIX) 75 MG tablet Take 75 mg by mouth 1 (one) time each day Active fenofibrate (TRICOR) 48 MG tablet Take 48 mg by mouth 1 (one) time each day Active fexofenadine (JEREMI) 180 MG tablet Take 180 mg by mouth 1 (one) time each day Active lamoTRIgine (LaMICtal) 200 MG tablet Take 200 mg by mouth in the morning and 200 mg in the evening. Active levothyroxine (SYNTHROID, LEVOTHROID) 25 MCG tablet Take 25 mcg by mouth 1 (one) time each day Active meclizine (ANTIVERT) 25 MG tablet Take 25 mg by mouth 1 (one) time each day if needed for dizziness Active metoprolol succinate XL (TOPROL XL) 25 MG 24 hr tablet Take 25 mg by mouth 1 (one) time each day Do not crush or chew. Active polyethylene glycol (GLYCOLAX) 17 g packet Take 17 g by mouth 1 (one) time each day Active QUEtiapine (SEROquel) 300 MG tablet Take 600 mg by mouth every night Active QUEtiapine XR (SEROquel XR) 150 MG 24 hr tablet Take 150 mg by mouth every night Do not crush, chew, or split. Active terazosin (HYTRIN) 2 MG capsule Take 2 mg by mouth every night Active topiramate (TOPAMAX) 100 MG tablet Take 100 mg by mouth 1 (one) time each day Active triamcinolone (KENALOG) 0.1 % cream Apply topically 1 (one) time each day Active Active Problems Problem Noted Date Diagnosed Date Blood in urine 09/05/2021 Chronic kidney disease stage 3 09/05/2021 Resolved Problems Problem Noted Date Diagnosed Date Resolved Date Gastro-esophageal reflux dis ease without esophagitis 09/05/2021 09/05/2021 Hypothyroidism 09/05/2021 09/05/2021 Myopia 09/05/2021 09/05/2021 Nicotine dependence 09/05/2021 09/06/19 22 Peeling of skin 09/05/2021 09/05/2021 Presbyopia 09/05/2021 09/05/2021 Primary erectile dysfunction 09/05/2021 09/05/2021 Pure hyperglyceridemia 09/05/202109/05 Schizophrenia 09/05/2021 09/05/2021 Family History Medical History Relation Comments Cancer Father carcinoma tumor Cancer Mother Heart disease Mother pacemaker Hypertension Mother Kidney disease Mother Stroke Mother Heart disease Sibling triple bypass Relation Status Comments Father Mother Alive Sibling Social History Tobacco Use Types Packs/Day Years Used Date Smoking Tobacco: Every Day Cigarettes Alcohol Use Standard Drinks/Week Comments Yes 0 (1 standard drink = 0.6 oz pure alcohol) Alcoholic Drinks/day: Occasional social drink Sex and Gender Information Value Date Recorded Sex Assigned at Not on file Legal Sex Male 5:12 PM EST Gender Identity Not on file Sexual Orientation Not on file Plan of Treatment Health Maintenance Due Date Last Done Comments Pneumococcal Vaccine: Pediat rics (0 to 5 Years) and At-Risk Patients (6 to 64 Years) (1 of 2 - PCV) 1970 Hepatitis B Vaccine (1 of 3 - 19+ 3-dose series) 06/10 Colorectal Cancer Screening: Annual FOBT 2013 Colorectal Cancer Screening: Colonoscopy 2013 Colorectal Cancer Screening: Sigmoidoscopy 2013 Influenza Vaccine (#1) 2023 Insurance ([id number]) [place] [id number] ([id number]) [place] [id number]
== END 2024-03-24 15:24 | disposition home or self-care (01) ==
PROVIDERS: PCP Physician Assistant; Visit Provider Physician Assistant
DX: Z11.1 Encounter for screening for respiratory tuberculosis (principal)

== ENCOUNTER → 2024-03-24 12:52 | Outpatient (BNVA) | payer OTHER, SELFPAY | PROVIDERS: PCP Physician Assistant; Visit Provider Physician Assistant | DX: Z11.1 Encounter for screening for respiratory tuberculosis (principal) | CPT/HCPCS: 86580 ==

== ENCOUNTER → 2024-03-26 12:51 | Outpatient (BNVA) | payer OTHER, SELFPAY | PROVIDERS: PCP Physician Assistant; Visit Provider Physician Assistant ==

== ENCOUNTER 2024-04-23 14:13 | Outpatient (REF) | payer OTHER, SELFPAY ==
[2024-04-23 17:20] LABS: Hematocrit 46.9 % (42.0-52.0); Hemoglobin 16.2 g/dl (14.0-18.0); Mean Corpuscular HGB Conc 34.5 g/dl (31.0-36.0); Mean Corpuscular Hemoglobin 31.7 pg (27.0-33.0); Mean Corpuscular Volume 91.8 fL (80.0-98.0); Mean Platelet Volume 9.6 fL (9.4-12.4); Platelet Count 144 X10*3/uL (160-400); Red Blood Count 5.11 X10*6/uL (4.60-5.80); Red Cell Distribution Width 12.5 % (11.0-16.0); White Blood Count 7.5 X10*3/uL (4.8-10.8)
[2024-04-23 18:06] LABS: Anion Gap 12 (12-20); Blood Urea Nitrogen 14 mg/dL (9-16); Calcium 9.6 mg/dL (8.4-10.2); Carbon Dioxide 29 mmol/L (22-29); Chloride 106 mmol/L (96-108); Estimated Glomerular Filt Rate > 60; Glucose Random 75 mg/dL (60-115); Potassium 4.5 mmol/L (3.3-5.1); Sodium 142 mmol/L (135-145)
--- OUTSIDE RECORDS SUMMARY | 2024-04-23 19:03 | XMS_ITS | Clinical Summary ---
Author Organization [facility] [address] ity Address [address] [place] [address] Care Team Providers Care Electrician Refinery Name Role Phone Basil Hale MD Primary [...] age to complete this topic Care Teams Electrician Refinery Relationship Specialty Start Date End Date Basil Hale MD PCP - General 02/18/17
--- OUTSIDE RECORDS SUMMARY | 2024-04-23 19:03 | XMS_ITS | Clinical Summary ---
Author Organization [facility] Address [address] [facility] [address] [place] [address] Phone Care Team Providers Care Trial Examiner Name Role Phone Unavailable Primary Care Provider [...] Vaccine (#1) 2023 Insurance ([id number]) [place] [id number] ([id number])
== END 2024-04-23 14:14 | disposition home or self-care (01) ==
LOC: HO.LAB 14:13
PROVIDERS: PCP Physician Assistant; Visit Provider Internal Medicine Cardiovascular Disease
DX: R07.9 Chest pain, unspecified (principal)
CPT/HCPCS: 36415; 80048; 85027; 85610; 99212

== ENCOUNTER 2024-04-23 14:13 | Outpatient (AMB) | payer OTHER, SELFPAY ==
--- NOTE | 2024-04-23 15:18 | MHC.OFFVIS ---
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 Accompanied by: Self / Same As Patient Allergies neff [CHERRIES] Allergy (Unknown, Verified 12/24/23 11:27) digestive issues (only with fresh) gluten [GLUTEN] Allergy (Unknown, Verified 12/24/23 11:27) digestive issues ibuprofen [From MOTRIN] Allergy (Unknown, Verified 12/24/23 11:27) UNKNOWN mayonnaise [MAYONNAISE] Allergy (Unknown, Verified 12/24/23 11:27) digestive issues Penicillins [PENICILLINS] Allergy (Unknown, Verified 12/24/23 11:27) UNKNOWN rosuvastatin [Crestor] Allergy (Unknown, Verified 12/24/23 11:27) unknown soy [SOY] Allergy (Unknown, Verified 12/24/23 11:27) digestive issue Sulfa (Sulfonamide Antibiotics) [SULFA (SULFONAMIDE ANTIBIOTICS)] Allergy (Unknown, Verified 12/24/23 11:27) unknown wheat [WHEAT] Allergy (Unknown, Verified 12/24/23 11:27) digestive issues lamotrigine [LAMOTRIGINE] Adverse Reaction (Intermediate, Verified 12/24/23 11:27) HEADACHES oxycodone [OXYCODONE] Adverse Reaction (Intermediate, Verified 12/24/23 11:27) racing thoughts APPLE JUICE Allergy (Unknown, Uncoded 12/24/23 11:27) digestive issues fresh sridevi cherries Allergy (Unknown, Uncoded 12/24/23 11:27) unknown Medication List - Last Reconciled 04/23/24 by Dago Mcgregor MD albuterol sulfate 90 mcg/actuation 1 puff inhalation Q6-8H PRN 30 days alfuzosin ER 10 mg PO BEDTIME 90 days aspirin 81 mg PO DAILY benztropine mg PO fexofenadine 180 mg PO DAILY 90 days levothyroxine 25 mcg PO DAILY 90 days lorazepam 1 mg PO DAILY PRN lurasidone 40 mg PO BEDTIME nitroglycerin 0.4 mg sublingual Q5M trazodone 50 mg PO BEDTIME PRN HPI Comments Details: 58-year-old gentleman here for follow-up. He was taken for cardiac catheterization after an abnormal stress tests performed for exertional chest tightness. Cardiac catheterization revealed severe proximal LAD stenosis which was treated with a drug-eluting stent with OCT guidance. He has a hypertrophic cardiomyopathy. He underwent cardiac event monitor in 2019 which did not show any PVCs or nonsustained VT. He had a cardiac MRI which showed delayed gadolinium enhancement and he was referred to electrophysiology. He was seen by Dr. Valle and it was felt that he is not high risk for arrhythmia. No ICD was indicated. He continues to smoke half a pack per day. Denying any chest pain or shortness of breath. He recently started seeing a different psychiatrist. He was told that his Seroquel (which he was on 800 mg daily) can be the cause for his hypertriglyceridemia. He has been cutting back on the Seroquel with the help of his psychiatrist and is down to 750 mg daily. He has not had a repeat repeat lipid panel since last year. 08/30/22: Sinus bradycardia 50 beats per minute, normal axis, lateral and inferior T-wave inversions due to underlying hypertrophic cardiomyopathy. QTC 428 milliseconds. Today he returns for follow-up. He has been exercising and losing weight. He is eating organic food. He is still smoking at this stage. He is asking that given the fact that he has lost weight and is exercising can he cut back on his atorvastatin from 80-40 mg. He has no chest pain or shortness of breath. We discussed about smoking cessation again. 12/13/2022: He returns for follow-up. He has stop smoking cigarettes but has been smoking cigars and smokes marijuana. He is denying any chest tightness or significant shortness of breath. Blood pressure control is good. He has been taking the atorvastatin. His last LDL cholesterol was good. 10/01/2023: He is here for follow-up. He was doing fine until 2 weeks ago when started having chest tightness. This is similar to his symptoms when he had coronary disease in the past diagnosed and had LAD PCI. He has chronic T-wave changes on the ECG due to hypertrophic cardiomyopathy. He continues to smoke unfortunately. He had few episodes in the last 2 weeks mostly with activity. No rest discomfort. He is asking whether he can stop atorvastatin. He continues to take baby aspirin. Due to low blood pressure his metoprolol was discontinued by the primary care physician appropriately. 01/30/2024: Brady returns for follow-up. He had stress echocardiogram which was normal. He also had an echocardiogram which did not show any wall motion abnormalities. He is saying since then he has been doing well and had 1 episode of chest discomfort for which he is used nitroglycerin approximately 2 months ago. He continues to be active at work without any exertional symptoms. He unfortunately continues to smoke too. 04/23/2024: Brady is here for follow-up. He continues to smoke and is actually smoking cigars. He is complaining of left-sided dull chest pain off and on. We did some stress testing on him recently which was normal and on subsequent follow-up his chest pains were better but he is complaining of discomfort again. He has stopped taking rosuvastatin. There is no allergy to rosuvastatin he just read some side effects and stopped taking it. [facility] Medical History Hypothyroidism Bipolar disorder Presence of stent in LAD coronary artery Chronic kidney disease Ischemic colitis Schizoaffective disorder CAD (coronary artery disease) Surgical History S/P cardiac cath History of heart artery stent History of cholecystectomy History of appendectomy History of tonsillectomy Family History Father Liver cancer Monoallelic mutation of MET gene Mother Arthritis Cancer Pacemaker Sister Parkinson disease Other Mental health disorder Social History Housing: House Alcohol intake: current Alcohol intake frequency: a few times a week Alcohol type: wine Patient Tobacco Use Status: Current everyday Tobacco user Tobacco use type: Cigar Cigarette Packs Per Day: 0.5 Cigarettes Per Day: 10 Years Smoked: 12 years e-Cigarette/Vaping Use: Currently Using Second Hand Smoke Exposure: Yes Substance Use Type: Marijuana service: No Current occupational status: employed 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 Cognitive needs: No Hearing needs: No Vision needs: Yes (glasses) Review of Systems Const Denies chills, Denies fatigue, Denies fever(s), Denies frequent falls, Denies weakness, Denies weight gain and Denies weight loss ENT Denies dizziness Card Denies chest pain, Denies leg edema, Denies lightheadedness, Denies palpitations, Denies dyspnea and Denies dyspnea on exertion Resp Denies cough, Denies dyspnea and Denies dyspnea on exertion GI Denies hematochezia Musc Denies abnormal gait, Denies muscle weakness, Denies numbness, Denies radiating pain into limb and Denies tingling Neuro Denies abnormal gait, Denies dizziness, Denies frequent falls, Denies numbness, Denies tingling and Denies weakness Endo Denies fatigue and Denies palpitations Physical Exam Vital Signs: Last Vital Signs Pulse 56 04/23/24 15:20 BP 100/50 L 04/23/24 15:20 BMI result Body Mass Index 25.5 GENERAL APPEARANCE: in no acute distress, pleasant. NECK: no carotid bruit, no jugular venous distention. SKIN: no suspicious lesions, warm and dry. HEART: Systolic murmur all over the precordium, regular rate and rhythm. LUNGS: clear to auscultation bilaterally. ABDOMEN: soft, nontender. EXTREMITIES: no edema. PERIPHERAL PULSES: equal. NEUROLOGIC: No gross deficits, AAO X 3 Assessment & Plan Assessment & Plan (1) CAD (coronary artery disease): Code(s): I25.10 - Atherosclerotic heart disease of [place] coronary artery without angina pectoris Category: Medical Qualifiers: Associated angina: without angina Coronary Disease-Associated Artery/Lesion type: bypass graft [place] vs. transplanted heart: [place] heart Qualified Code(s): I25.810 - Atherosclerosis of coronary artery bypass graft(s) without angina pectoris (2) Hypertrophic cardiomyopathy: Code(s): I42.2 - Other hypertrophic cardiomyopathy Category: Medical (3) Chest pain: Code(s): R07.9 - Chest pain, unspecified Category: Medical Plan 58-year-old male presenting for follow-up. He has known history of coronary artery disease with previous LAD PCI. He also has hypertrophic cardiomyopathy and was previously seen by electrophysiology and was deemed low risk for sudden and ICD was not implanted. He unfortunately continues to smoke. He is complaining of chest discomfort. Given known history of coronary disease and ongoing symptoms I have advised him that we should do a diagnostic angiogram. He is agreeable for that. We will arrange this in the coming weeks. We will do basic labs. He does not have any allergy to statins. Thank you for allowing me to participate in the care of your patient. Please feel free to contact me if you have any questions. Orders: Orders Cardiac Cath LT Diagnostic Today R07.9 - Chest pain, unspecified Basic Metabolic Panel Today R07.9 - Chest pain, unspecified Complete Blood Count no Diff Today R07.9 - Chest pain, unspecified Prothrombin Time INR Today R07.9 - Chest pain, unspecified Coding Level of Care Code Est Pt Level 5 (37575) Diagnoses Coronary artery disease involving coronary bypass graft of [place] heart without angina pectoris I25.810 Associated angina: without angina Coronary Disease-Associated Artery/Lesion type: bypass graft [place] vs. transplanted heart: [place] heart Hypertrophic cardiomyopathy I42.2 Chest pain R07.9
[2024-04-23 15:20] VITALS: BP 100/50; PULSE 56; BMI 25.5
--- OUTSIDE RECORDS SUMMARY | 2024-04-23 17:09 | XMS_ITS | Patient Health Record ---
Author Organization [facility] Address [address] [place] [address] Care Team Providers Care Trust And Estates Paralegal Name Role Phone Neil Ny Unavailable [phone] Reason For Referral No Information Encounters Encounter Location Date Provider Diagnosis [facility] [address] [place] [address] 06/25/2023 [facility] [address] [address] 09/18/2023 Neil Ny Plan Of Treatment No Information Insurance Providers Payer Name Payer Address Payer Phone Subscriber Number Group Number Insured Name Patient Relationship to Insured Coverage Start Date Coverage End Date [facility] [place] [employer] S[employer] Claims [address] [place] [id number] Brady Rueda Self - patient is the insured
--- OUTSIDE RECORDS SUMMARY | 2024-04-23 17:09 | XMS_ITS ---
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 Generated for Angella larson/Ricky/eTransmitting on:?04/23/2024 05:09 PM EST
--- OUTSIDE RECORDS SUMMARY | 2024-04-23 17:09 | XMS_ITS ---
Author Organization [facility] [place] Address [address] [place] [address] Care Team Providers Care Linen Folder Name Role Phone Neil Ny Unavailable [phone] Encounters Encounter Location Date [facility] [address] [address] 09/20/2023 Neil Ny Plan Of Treatment No Information Progress Notes * Brady RUEDADOB:1965 (58 yo M)Acc No.[id number]:09/20/2023 Progress Notes Patient:?Brady RUEDA Provider:?Neil Ny DPM :1965???Age:58 Y???Sex:Male Francisco Javier e:09/20/2023 Address:[address] [place], [place] [id number] Subjective: * Chief Complaints: * ??? * Medical History:? Objective: * Vitals:? Assessment: Plan: * Treatment: * Images: * The named appointment provid er may or may not be the originator of this progress note, and it is not deemed complete until electronically signed by the appointment provider. Sign off status: Pending * Provider:?Neil Ny DPM Date:?2023 Generated for Angella larson/Ricky/Benitezitting on:?04/23/2024 05:09 PM EST
--- OUTSIDE RECORDS SUMMARY | 2024-04-23 17:09 | XMS_ITS ---
Author Organization [facility] Address [address] [place] [address] Care Team Providers Care Security Operations Manager Name Role Phone Neil Ny Unavailable [phone] REASON FOR VISIT ESTATE ATTORNEY Encounters Encounter Location Date Provider Diagnosis [facility] [address] [place] [address] 06/25/2023 Neil Ny Plan Of Treatment No Information Progress Notes * Brady RUEDADOB:1965 (58 yo M)Acc No.[id number]:06/25/2023 Patient:?Brady Rueda :1965???Age:58 Y???Sex:Male Address:[address] [place] [address] * true * Date:? Generated for Angella larson/Ricky/Hodaransmitting on:?04/23/2024 05:08 PM EST
--- OUTSIDE RECORDS SUMMARY | 2024-04-23 17:09 | XMS_ITS | Clinical Summary ---
Author Organization [facility] ity Address [address] [place] [address] Care Team Providers Care Meat Passer Name Role Phone Basil Hale MD Primary Care Provider Unava ilable Social History Tobacco Use Types Packs/Day Years Used Date Smoking Tobacco: Never Assessed Sex and Gender Information Value Date Recorded Sex Assigned at Not on file Legal Sex Male 7:27 PM EST Gender Identity Not on file Sexual Orientation Not on file Plan of Treatment Health Maintenance Due Date Last Done Comments COVID-19 Vaccine (#1) 1969 Hepatitis B Vaccines (1 of 3 - 19+ 3-dose series) 06/11/1983 Pneumococcal Vaccine: 50+ Years (1 of 2 - PCV) 06/11/1983 Pneumococcal Vaccine: Pediatrics (0 to 5 Years) and At-Risk Patients (6 to 64 Years) (1 of 2 - PCV) 06/11/1983 Zoster Vaccines (1 of 2) 06/11/1983 [...] patient's age to complete this topic Meningococcal B Vacine Aged Out No lo nger eligible based on patient's age to complete this topic RSV Immunization Patients Under 20 months Aged Out No longer eligible based on patient's age to complete this topic Varicella Vaccines Aged Out No longer eligible based on patient's age to complete this topic Care Teams Meat Passer Relationship Specialty Start Date End Date Basil Hale MD PCP - General 02/18/17
--- OUTSIDE RECORDS SUMMARY | 2024-04-23 17:09 | XMS_ITS | Clinical Summary ---
Author Organization [facility] Address [address] [facility] [address] [place] [address] Phone Care Team Providers Care Finger Waver Name Role Phone Unavailable Primary Care Provider [...] Vaccine (#1) 2023 Insurance ([id number]) [place] [id number] ([id number])
== END 2024-04-23 15:53 | disposition home or self-care (01) ==
PROVIDERS: PCP Physician Assistant; Visit Provider Internal Medicine Cardiovascular Disease
DX: I25.810 Atherosclerosis of coronary artery bypass graft(s) without angina pectoris (principal); I42.2 Other hypertrophic cardiomyopathy; R07.9 Chest pain, unspecified
CPT/HCPCS: 99215

== ENCOUNTER → 2024-05-13 23:59 | Outpatient (BNV) | payer OTHER, SELFPAY | PROVIDERS: PCP Physician Assistant; Visit Provider Internal Medicine Cardiovascular Disease | DX: R93.1 Abnormal findings on diagnostic imaging of heart and coronary circulation (principal) | CPT/HCPCS: 93458; 99152 ==

== ENCOUNTER 2024-06-12 07:36 | Outpatient (REF) | payer OTHER, SELFPAY ==
--- OUTSIDE RECORDS SUMMARY | 2024-06-12 07:38 | XMS_ITS | Clinical Summary ---
Author Organization [facility] Address [address] [facility] [address] [place] [address] Phone Care Team Providers Care Instant Printer Operator Name Role Phone Unavailable Primary Care [...] Due Date Last Done Comments Pneumococcal Vaccine: 50+ Ye ars (1 of 2 - PCV) 06/11/1983 Colorectal Cancer Screening: Annual FOBT 2013 Colorectal Cancer Screening: Colonoscopy 2013 Colorectal Cancer Screening: Sigmoidoscopy 2013 Influenza Vaccine (Season Ended) 2024 Hepatitis B Vaccine Aged Out No longe r eligible based on patient's age to complete this topic Insurance ([id number]) [place] [id number] ([id number]) [place] [id number]
--- OUTSIDE RECORDS SUMMARY | 2024-06-12 07:38 | XMS_ITS ---
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 Generated for Erici neo/Ricky/eTransmitting on:?06/12/2024 07:38 AM EDT
--- OUTSIDE RECORDS SUMMARY | 2024-06-12 07:38 | XMS_ITS | Patient Health Record ---
Author Organization [facility] Address [address] [place] [address] Care Team Providers Care Head Chef Name Role Phone Neil Ny Unavailable [phone] Reason For Referral No Information Encounters Encounter Location Date Provider Diagnosis [facility] [address] [place] [address] 06/25/2023 [facility] [address] [address] 09/18/2023 Neil Ny Plan Of Treatment No Information Insurance Providers Payer Name Payer Address Payer Phone Subscriber Number Group Number Insured Name Patient Relationship to Insured Coverage Start Date Coverage End Date [facility] [employer] S[employer] Claims [address] [place] [id number] Brady Rueda Self - patient is the insured
--- OUTSIDE RECORDS SUMMARY | 2024-06-12 07:38 | XMS_ITS | Clinical Summary ---
Author Organization [facility] it Address [address] [place] [address] Care Team Providers Care Fire Behavior Analyst Name Role Phone Basil Hale MD Primary [...] Annual BMP Blood Test 02/02/2022 Influenza Vaccine (Season Ended) 2024 12/11/2016, 01/09/2011, 02/03/2009, Additional history exists RSV Immunization Adult Patients (1 - 1-dose 75+ series) 06/11/2039 HIB [...] age to complete this topic Meningococcal B Vaccine Aged Out No l onger eligible based on patient's age to complete this topic RSV Immunization Patients Under 20 months Aged Out No longer eligible based on patient's age to complete this topic Varicella Vaccines Aged Out No longer eligible based on patient's age to complete this topic Care Teams Fire Behavior Analyst Relationship Specialty Start Date End Date Basil Hale MD PCP - General 02/18/17
--- OUTSIDE RECORDS SUMMARY | 2024-06-12 07:38 | XMS_ITS ---
Author Organization [facility] [place] Address [address] [place] [address] Care Team Providers Care Steel Fitter Name Role Phone Neil Ny Unavailable [phone] Encounters Encounter Location Date Provider [facility] [address] [address] 09/20/2023 Neil Ny Plan Of Treatment No Information Progress Notes * Brady RUEDADOB:1965 (59 yo M)Acc No.[id number]:09/20/2023 Progress Notes Patient:?Brady RUEDA Provider:?Neil Ny DPM :1965???Age:58 Y???Sex:Male Francisco Javier e:09/20/2023 Address:[address] [place], [place] [phone] Subjective: * Chief Complaints: * ??? * Medical History:? Objective: * Vitals:? Assessment: Plan: * Treatment: * Images: * The named appointment provid er may or may not be the originator of this progress note, and it is not deemed complete until electronically signed by the appointment provider. Sign off status: Pending * Provider:?Neil Ny DPM Date:?2023 Generated for Angella larson/Ricky/eTdaianasmitting on:?06/12/2024 07:38 AM EDT
[2024-06-12 08:57] LABS: Prostate Specific Antigen 1.34 ng/mL (<0.05-4.0)
== END 2024-06-12 07:37 | disposition home or self-care (01) ==
LOC: HO.LAB 07:36
PROVIDERS: PCP Physician Assistant; Visit Provider Urology
DX: R33.9 Retention of urine, unspecified (principal); R39.12 Poor urinary stream; N40.1 Benign prostatic hyperplasia with lower urinary tract symptoms; Z12.5 Encounter for screening for malignant neoplasm of prostate
CPT/HCPCS: 36415; 84153

== ENCOUNTER → 2024-06-19 14:07 | Outpatient (REF) | payer OTHER, SELFPAY ==
--- OUTSIDE RECORDS SUMMARY | 2024-06-19 16:17 | XMS_ITS | Patient Health Record ---
Author Organization [facility] Address [address] [place] [address] Care Team Providers Care Senior Care Specialist Name Role Phone Neil Ny Unavailable [phone] Reason For Referral No Information Encounters Encounter Location Date Provider Diagnosis [facility] [address] [place] [address] 06/25/2023 [facility] [address] [address] 09/18/2023 Neil Ny Plan Of Treatment No Information Insurance Providers Payer Name Payer Address Payer Phone Subscriber Number Group Number Insured Name Patient Relationship to Insured Coverage Start Date Coverage End Date [facility] [employer] S[employer] Claims [address] [place] [id number] Brady Rueda Self - patient is the insured
--- OUTSIDE RECORDS SUMMARY | 2024-06-19 16:17 | XMS_ITS ---
Author Organization [facility] [place] Address [address] [place] [address] Care Team Providers Care Naval Gunfire Spotter Name Role Phone Neil Ny Unavailable [phone] REASON FOR VISIT MIXER RUNNER Encounters Encounter Location Date Provider Diagnosis [facility] [address] [place] [address] 06/25/2023 Neil Ny Plan Of Treatment No Information Progress Notes * Brady RUEDADOB:1965 (58 yo M)Acc No.[id number]:06/25/2023 Patient:?Brady Rueda :1965???Age:58 Y???Sex:Male Address:[address] [place] [address] * true * Date:? Generated for Angella larson/Ricky/eTransmitting on:?06/19/2024 04:17 PM EDT
--- OUTSIDE RECORDS SUMMARY | 2024-06-19 16:17 | XMS_ITS ---
Author Organization [facility] [place] Address [address] [place] [address] Care Team Providers Care Cfd Engineer Name Role Phone Neil Ny Unavailable [phone] Encounters Encounter Location Date [facility] [address] [address] 09/20/2023 Neil Ny Plan Of Treatment No Information Progress Notes * Brady RUEDADOB:1965 (59 yo M)Acc No.[id number]:09/20/2023 Progress Notes Patient:?Brady RUEDA Provider:?Neil Ny DPM :1965???Age:58 Y???Sex:Male Francisco Javier e:09/20/2023 Address:[address] [place], [place] [phone] Subjective: * Chief Complaints: * ??? * Medical History:? Objective: * Vitals:? Assessment: Plan: * Treatment: * Images: * The named appointment provid er may or may not be the originator of this progress note, and it is not deemed complete until electronically signed by the appointment provider. Sign off status: Pending * Provider:?Neil Ny DPM Date:?2023 Generated for Angella larson/Ricky/eTdaianasmitting on:?06/19/2024 04:17 PM EDT
--- OUTSIDE RECORDS SUMMARY | 2024-06-19 16:17 | XMS_ITS | Clinical Summary ---
Author Organization [facility] ity Address [address] [place] [address] Care Team Providers Care Retail Bakery Manager Name Role Phone Basil Hale MD Primary [...] Comments COVID-19 Vaccine (#1) 1969 Pneumococcal Vaccine: 50+ Years (1 of 2 [...] 01/21/2022 Hypertension/CHF/CAD Annual BMP Blood Test 02/02/2022 RSV Immunization Adult Patients (1 - Risk 60-74 years 1-dose series) 2024 Influenza Vaccine (Season Ended) 2024 12/11/2016, 01/09/2011, 02/03/2009, Additional history exists HIB Vaccines Aged Out No longer eligi ble based on patient's age to complete this topic HPV Vaccines Aged Out No longer eligi ble based on patient's age to complete this topic Hepatitis A Vaccines Aged Out No long er eligible based on patient's age to complete this topic Hepatitis B Vaccines Aged Out No long er eligible [...] age to complete this topic Care Teams Retail Bakery Manager Relationship Specialty Start Date End Date Basil Hale MD PCP - General 02/18/17
--- OUTSIDE RECORDS SUMMARY | 2024-06-19 16:18 | XMS_ITS ---
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 [address] [place] [address] 09/18/2023 Neil Ny Plan Of Treatment No Information Progress Notes * Brady RUEDADOB:1965 (58 yo M)Acc No.[id number]:09/18/2023 Patient:?Brady Rueda :1965???Age:58 Y???Sex:Male Address:[address] [place] [address] * true * Date:? Generated for Angella larson/Ricky/eTransmitting on:?06/19/2024 04:17 PM EDT
--- OUTSIDE RECORDS SUMMARY | 2024-06-19 16:18 | XMS_ITS | Clinical Summary ---
Author Organization [facility] Address [address] [facility] [address] [place] [address] Phone Care Team Providers Care Election Assistant Name Role Phone Unavailable Primary Care Provider [...] complete this topic Insurance ([id number]) [place] [id number] ([id number]) [place] [id number]
== END ==
LOC: HO.CARD 14:07
PROVIDERS: PCP Physician Assistant; Visit Provider Internal Medicine Cardiovascular Disease
DX: I42.2 Other hypertrophic cardiomyopathy (principal)
CPT/HCPCS: 93306

== ENCOUNTER → 2024-06-19 14:09 | Outpatient (BNV) | payer OTHER, SELFPAY | PROVIDERS: PCP Physician Assistant; Visit Provider Internal Medicine Cardiovascular Disease | DX: I42.2 Other hypertrophic cardiomyopathy (principal); I51.7 Cardiomegaly | CPT/HCPCS: 93306 ==

== ENCOUNTER 2024-06-20 14:49 | Outpatient (AMB) | payer OTHER, SELFPAY ==
--- OUTSIDE RECORDS SUMMARY | 2024-06-20 14:54 | XMS_ITS | Patient Health Record ---
Author Organization [facility] Address [address] [place] [address] Care Team Providers Care Gas Plant Worker Name Role Phone Neil Ny Unavailable [phone] Reason For Referral No Information Encounters Encounter Location Date Provider Diagnosis [facility] [address] [place] [address] 06/25/2023 [facility] [address] [address] 09/18/2023 Neil Ny Plan Of Treatment No Information Insurance Providers Payer Name Payer Address Payer Phone Subscriber Number Group Number Insured Name Patient Relationship to Insured Coverage Start Date Coverage End Date [facility] [employer] SCO Claims [address] [place] [address] [id number] Brady Rueda Self - patient is the insured
--- OUTSIDE RECORDS SUMMARY | 2024-06-20 14:54 | XMS_ITS ---
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 [address] [place] [address] 06/25/2023 Neil Ny Plan Of Treatment No Information Progress Notes * Brady RUEDADOB:1965 (58 yo M)Acc No.[id number]:06/25/2023 Patient:?Brady Rueda :1965???Age:58 Y???Sex:Male Address:[address] [place] [address] * true * Date:? Generated for Angella larson/Ricky/eTransmitting on:?06/20/2024 02:54 PM EDT
--- OUTSIDE RECORDS SUMMARY | 2024-06-20 14:54 | XMS_ITS | Clinical Summary ---
Author Organization [facility] ity Address [address] [place] [address] Care Team Providers Care Chuck Splitter Name Role Phone Basil Hale MD Primary [...] age to complete this topic Care Teams Chuck Splitter Relationship Specialty Start Date End Date Basil Hale MD PCP - General 02/18/17
--- OUTSIDE RECORDS SUMMARY | 2024-06-20 14:55 | XMS_ITS | Clinical Summary ---
Author Organization [facility] Address [address] [facility] [address] [place] [address] Phone Care Team Providers Care Agricultural Equipment Operator Name Role Phone Unavailable Primary Care [...] complete this topic Insurance ([id number]) [place] [id number] ([id number]) [place] [id number]
--- OUTSIDE RECORDS SUMMARY | 2024-06-20 14:55 | XMS_ITS ---
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 [address] [place] [address] 09/18/2023 Neil Ny Plan Of Treatment No Information Progress Notes * Brady RUEDADOB:1965 (58 yo M)Acc No.[id number]:09/18/2023 Patient:?Brady Rueda :1965???Age:58 Y???Sex:Male Address:[address] [place] [address] * true * Date:? Generated for Angella larson/Ricky/eTransmitting on:?06/20/2024 02:54 PM EDT
--- OUTSIDE RECORDS SUMMARY | 2024-06-20 14:55 | XMS_ITS ---
Author Organization [facility] [place] Address [address] [place] [address] Care Team Providers Care Bosom Presser Name Role Phone Neil Ny Unavailable [phone] Encounters Encounter Location Date [facility] [address] [address] 09/20/2023 Neil Ny Plan Of Treatment No Information Progress Notes * Brady RUEDADOB:1965 (59 yo M)Acc No.[id number]:09/20/2023 Progress Notes Patient:?Brady RUEDA Provider:?Neil Ny DPM :1965???Age:58 Y???Sex:Male Francisco Javier e:09/20/2023 Address:[address] [place], [place] [phone] Subjective: * Chief Complaints: * ??? * Medical History:? Objective: * Vitals:? Assessment: Plan: * Treatment: * Images: * The named appointment provid er may or may not be the originator of this progress note, and it is not deemed complete until electronically signed by the appointment provider. Sign off status: Pending * Provider:?Neil Ny DPM Date:?2023 Generated for Angella larson/Ricky/eTdaianasmitting on:?06/20/2024 02:54 PM EDT
--- NOTE | 2024-06-20 15:07 | MHC.OFFVIS ---
Intake Visit Reasons: 6M/psa/pvr(PSA?) Intake Note: Patient is present for 6M/PSA/PVR Urology Medication:ALFUZOSIN Antibiotic Allergy:PENICILLINS,SULFA Blood Thinner:ASPIRIN TODAY'S PVR: 47ML'S Clinical Mental Health Counselor Required: No Allergies neff (CHERRIES) Allergy (Unknown, Verified 06/20/24 15:10) digestive issues (only with fresh) gluten (GLUTEN) Allergy (Unknown, Verified 06/20/24 15:10) digestive issues ibuprofen (From MOTRIN) Allergy (Unknown, Verified 06/20/24 15:10) UNKNOWN mayonnaise (MAYONNAISE) Allergy (Unknown, Verified 06/20/24 15:10) digestive issues Penicillins (PENICILLINS) Allergy (Unknown, Verified 06/20/24 15:10) UNKNOWN rosuvastatin (Crestor) Allergy (Unknown, Verified 06/20/24 15:10) unknown soy (SOY) Allergy (Unknown, Verified 06/20/24 15:10) digestive issue Sulfa (Sulfonamide Antibiotics) (SULFA (SULFONAMIDE ANTIBIOTICS)) Allergy (Unknown, Verified 06/20/24 15:10) unknown wheat (WHEAT) Allergy (Unknown, Verified 06/20/24 15:10) digestive issues lamotrigine (LAMOTRIGINE) Adverse Reaction (Intermediate, Verified 06/20/24 15:10) HEADACHES oxycodone (OXYCODONE) Adverse Reaction (Intermediate, Verified 06/20/24 15:10) racing thoughts APPLE JUICE Allergy (Unknown, Uncoded 06/20/24 15:10) digestive issues fresh sridevi cherries Allergy (Unknown, Uncoded 06/20/24 15:10) unknown HPI Comments Details: Brady is a pleasant male. He is a patient of Dr. Cheung. He seen for the following urologic conditions - lower urinary tract symptoms Continued bladder stability. 50 cc. On alfuzosin. Does have weakening stream Prolonged emptying time Discussed GreenLight laser prostatectomy Printed information provided He will consider Lower urinary tract symptoms Progressive On alfuzosin Bladder ultrasound prostate 60 cc [facility] Medical History Hypothyroidism Bipolar disorder Presence of stent in LAD coronary artery Chronic kidney disease Ischemic colitis Schizoaffective disorder CAD (coronary artery disease) Surgical History S/P cardiac cath History of heart artery stent History of cholecystectomy History of appendectomy History of tonsillectomy Family History Father Liver cancer Monoallelic mutation of MET gene Mother Arthritis Cancer Pacemaker Sister Parkinson disease Other Mental health disorder Social History Housing: House Alcohol intake: current Alcohol intake frequency: a few times a week Alcohol type: wine Patient Tobacco Use Status: Current everyday Tobacco user Tobacco use type: Cigar Cigarette Packs Per Day: 0.5 Cigarettes Per Day: 10 Years Smoked: 12 years e-Cigarette/Vaping Use: Currently Using Second Hand Smoke Exposure: Yes Substance Use Type: Marijuana service: No Current occupational status: employed 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 Cognitive needs: No Hearing needs: No Vision needs: Yes (glasses) Review of Systems Const Denies chills and Denies fever(s) Card Reports no additional complaints and Denies syncope Resp Denies cough GI Denies abdominal pain and Denies heartburn Reports as per HPI and Denies change in libido Neuro Denies syncope Psych Denies change in libido Endo Denies change in libido Physical Exam Const General: cooperative, healthy appearing, comfortable and no acute distress Orientation/consciousness: patient oriented x3 HEENT Face and sinus: Yes normal facial exam Mouth: moist mucous membranes Neck Neck: Yes normal visual inspection, Yes full ROM and Yes trachea midline Chest Chest palpation & inspection: normal inspection of the chest Resp Effort & Inspection: normal respiratory effort, able to speak in complete sentences and no respiratory distress GI Inspection: Yes normal to inspection Back/Spine/Pelvis Cervical Spine: normal cervical lordosis Thoracic/Lumbar Spine: thoracic and lumbar spine normal to inspection Skin General skin exam: no rashes or lesions noted Neuro General: patient oriented x3, gait normal, tone normal and moves all extremities Extrem General: Yes normal to inspection and Yes capillary refill normal Office Procedures Post Void Residual Post Residual Void Post Void Residual (PVR): 47 [id number] Void Residual by ultrasound Assessment & Plan Assessment & Plan (1) BPH (benign prostatic hyperplasia): Code(s): N40.0 - Benign prostatic hyperplasia without lower urinary tract symptoms Category: Medical Qualifiers: Lower urinary tract symptom presence: symptoms present Lower urinary tract symptom detail: weak urinary stream Qualified Code(s): N40.1 - Benign prostatic hyperplasia with lower urinary tract symptoms; R39.12 - Poor urinary stream (2) Urinary retention: Code(s): R33.9 - Retention of urine, unspecified Category: Medical Plan Six-month follow-up office PVR Patient Instructions: This note is constructed using voice recognition software. While every effort has been made to ensure accuracy campus security director errors may have been included. Imaging studies, laboratory and physical exam results were discussed and reviewed in detail. No major barriers to patient understanding were identified. An opportunity to ask questions regarding the treatment plan was provided. All questions were answered. The patient expressed understanding and agreement with the above treatment plan. The patient is aware they should contact our office by phone for worsening of their current condition or the appearance of new urologic symptoms. Compliance is encouraged with any medications and followup testing that is ordered. It is a privilege to participate in the urologic care of your patient. If you have any questions or concerns regarding treatment for the above conditions, or other urologic issues, please do not hesitate to contact me. The office telephone contact is [phone]. Sincerely, Dr Nathanael Rutledge MD, ABDULAZIZ [facility] - Urology Compassionate Specialist Care for the Genitourinary System Coding Level of Care Code Est Pt Level 3 (64962) Complex EM visit Add On G2211 Diagnoses Benign prostatic hyperplasia with weak urinary stream N40.1; R39.12 Lower urinary tract symptom presence: symptoms present Lower urinary tract symptom detail: weak urinary stream Urinary retention R33.9 CPT Codes Post Residual Void - PVR CPT Code: 25573-Dhbz Void Residual by ultrasound ([id number])
== END 2024-06-20 15:50 | disposition home or self-care (01) ==
LOC: HO.HUSH 14:50
PROVIDERS: PCP Physician Assistant; Visit Provider Urology
DX: N40.1 Benign prostatic hyperplasia with lower urinary tract symptoms (principal); R39.12 Poor urinary stream; R33.9 Retention of urine, unspecified
CPT/HCPCS: 99213; G2211

== ENCOUNTER → 2024-06-20 14:49 | Outpatient (BNVA) | payer OTHER, SELFPAY | PROVIDERS: PCP Physician Assistant; Visit Provider Urology | DX: N40.1 Benign prostatic hyperplasia with lower urinary tract symptoms (principal); R39.12 Poor urinary stream; R33.8 Other retention of urine | CPT/HCPCS: 51798; 99212 ==

== ENCOUNTER 2024-06-26 13:51 | Outpatient (AMB) | payer OTHER, SELFPAY ==
--- NOTE | 2024-06-26 14:28 | MHC.OFFVIS ---
Vital Signs 06/26/24 14:29 Height 5 ft 5 in Weight 150 lb 5.684 oz BMI 25.0 BP 110/60 Blood Pressure Location Lt brachial Position Sitting Pulse 46 L Pulse Source Monitor Intake Visit Reasons: [facility] F/up Intake Note: [facility] f/up-echo Photonic Laboratory Technician Required: No Accompanied by: Self / Same As Patient Allergies neff [CHERRIES] Allergy (Unknown, Verified 06/20/24 15:10) digestive issues (only with fresh) gluten [GLUTEN] Allergy (Unknown, Verified 06/20/24 15:10) digestive issues ibuprofen [From MOTRIN] Allergy (Unknown, Verified 06/20/24 15:10) UNKNOWN mayonnaise [MAYONNAISE] Allergy (Unknown, Verified 06/20/24 15:10) digestive issues Penicillins [PENICILLINS] Allergy (Unknown, Verified 06/20/24 15:10) UNKNOWN rosuvastatin [Crestor] Allergy (Unknown, Verified 06/20/24 15:10) unknown soy [SOY] Allergy (Unknown, Verified 06/20/24 15:10) digestive issue Sulfa (Sulfonamide Antibiotics) [SULFA (SULFONAMIDE ANTIBIOTICS)] Allergy (Unknown, Verified 06/20/24 15:10) unknown wheat [WHEAT] Allergy (Unknown, Verified 06/20/24 15:10) digestive issues lamotrigine [LAMOTRIGINE] Adverse Reaction (Intermediate, Verified 06/20/24 15:10) HEADACHES oxycodone [OXYCODONE] Adverse Reaction (Intermediate, Verified 06/20/24 15:10) racing thoughts APPLE JUICE Allergy (Unknown, Uncoded 06/20/24 15:10) digestive issues fresh sridevi cherries Allergy (Unknown, Uncoded 06/20/24 15:10) unknown Medication List - Last Reconciled 06/26/24 by Adam Sheth NP albuterol sulfate 90 mcg/actuation 1 puff inhalation Q6-8H PRN 30 days alfuzosin ER 10 mg PO BEDTIME 90 days aspirin 81 mg PO DAILY benztropine mg PO fexofenadine 180 mg PO DAILY 90 days levothyroxine 25 mcg PO DAILY 90 days lorazepam 1 mg PO DAILY PRN lurasidone 40 mg PO BEDTIME nitroglycerin 0.4 mg sublingual Q5M trazodone 50 mg PO BEDTIME PRN HPI Comments Details: This is a 59-year-old male patient presenting for a hospital discharge follow-up. Patient with medical history significant for hypertrophic cardiomyopathy, hyperlipidemia, coronary artery disease status post LAD PCI, and current tobacco use. The patient has had intermittent complaints of chest discomfort in the past. Had undergone a stress echocardiogram which was normal, however, due to his ongoing symptoms, he underwent a cardiac catheterization with Dr. Mcgregor on 05/13/2024, which revealed no culprit lesions and a patent stent. A few weeks ago, patient was evaluated at [facility] after experiencing an episode of dizziness accompanied with nausea and vomiting. He was found to be in sinus bradycardia and was admitted for 3 day observation. His heart rate during that time was as low as 30 beats per minute during sleep and has a result, he was placed on a 2 week Holter monitor which he completed 2 days ago and we have no reports of it yet. Since discharge, the patient reports feeling well overall. He denies any current cardiac symptoms including exertional chest pain, shortness of breath, palpitations, dizziness, orthopnea, PND, leg edema, presyncope, or syncope. [facility] Medical History Hypothyroidism Bipolar disorder Presence of stent in LAD coronary artery Chronic kidney disease Ischemic colitis Schizoaffective disorder CAD (coronary artery disease) Surgical History S/P cardiac cath History of heart artery stent History of cholecystectomy History of appendectomy History of tonsillectomy Family History Father Liver cancer Monoallelic mutation of MET gene Mother Arthritis Cancer Pacemaker Sister Parkinson disease Other Mental health disorder Social History Housing: House Alcohol intake: current Alcohol intake frequency: a few times a week Alcohol type: wine Patient Tobacco Use Status: Current everyday Tobacco user Tobacco use type: Cigar Cigarette Packs Per Day: 0.5 Cigarettes Per Day: 10 Years Smoked: 12 years e-Cigarette/Vaping Use: Currently Using Second Hand Smoke Exposure: Yes Substance Use Type: Marijuana service: No Current occupational status: employed 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 Cognitive needs: No Hearing needs: No Vision needs: Yes (glasses) Review of Systems Const Denies chills, Denies fatigue, Denies fever(s), Denies frequent falls, Reports weakness, Denies weight gain and Denies weight loss ENT Denies dizziness Card Denies chest pain, Denies leg edema, Denies lightheadedness, Denies palpitations, Denies dyspnea and Denies dyspnea on exertion Resp Denies cough, Denies dyspnea and Denies dyspnea on exertion GI Denies hematochezia Musc Denies abnormal gait, Denies muscle weakness, Denies numbness, Denies radiating pain into limb and Denies tingling Neuro Denies abnormal gait, Denies dizziness, Denies frequent falls, Denies numbness, Denies tingling and Reports weakness Endo Denies fatigue and Denies palpitations Physical Exam Vital Signs: Last Vital Signs Pulse 46 L 06/26/24 14:29 BP 110/60 06/26/24 14:29 BMI result Body Mass Index 25.0 Const General: cooperative, healthy appearing, comfortable and no acute distress Orientation/consciousness: patient oriented x3 HEENT Head: Yes normal to inspection Neck Neck: Yes normal visual inspection, Yes trachea midline and Yes supple Chest Chest palpation & inspection: normal inspection of the chest Resp Effort & Inspection: normal respiratory effort Auscultation: clear to auscultation bilaterally, no crackles, no rales, no rhonchi and no wheezes Cardio Jugular venous distension: no JVD Palpation: normal PMI Rate: regular rate Rhythm: regular rhythm Heart sounds: S1 normal heart sound present, S2 normal heart sound present, no click, no gallops, Murmur heart sound present systolic and no rubs Peripheral pulses: Peripheral pulses 2+ throughout GI Inspection: Yes normal to inspection Palpation (GI): Soft to palpation Auscultation: normal bowel sounds Skin General skin exam: no rashes or lesions noted Neuro General: patient oriented x3 Extrem General: Yes normal to inspection, No no pedal edema and No calf tenderness Psych Appearance: grossly normal Mental Status: mental status grossly normal Speech and movement: Normal speech and movement present Office Procedures EKG Details: EKG today showed sinus bradycardia with a first-degree AV block, rate 46 beats per minute, chronic T-wave inversions inferiorly [place]ol[place]. [address]-[id number], Complete Assessment & Plan Assessment & Plan (1) Hypertrophic cardiomyopathy: Code(s): I42.2 - Other hypertrophic cardiomyopathy Category: Medical Plan: 06/19/2024-echo study showed LV systolic function with an ejection fraction greater than 70%, with severe septal asymmetric hypertrophy, LVOT gradient at rest at 35 mmHg, post Valsalva at 41 mmHg, and systolic anterior motion of the mitral valve. Patient was previously seen by EP for possible ICD implantation however patient was deemed low risk for sudden cardiac . However, during recent hospital admission, they did a 2 week Holter monitor which has not resulted yet. Patient will request report to be sent to our office. Further intervention based on findings. Clinically euvolemic and stable. EKG today with sinus bradycardia and chronic T-wave inversions. (2) S/P cardiac cath: Comment: No significant LM disease, widely patent LAD stent, mild proximal LCx plaque, no significant RCA disease in large dominant vessel, intracavity LVOT gradiant 60-65mmhg Code(s): Z98.890 - Other specified postprocedural states Category: Surgical Plan: 05/13/2024-patient underwent cardiac catheterization which showed patent LAD stent and minimal luminal irregularities in the RCA. Patient was previously on rosuvastatin however stopped taking it due to his concerns about side effects upon reading about it. Continue aspirin therapy. (3) CAD (coronary artery disease): Code(s): I25.10 - Atherosclerotic heart disease of [place] coronary artery without angina pectoris Category: Medical Qualifiers: Coronary Disease-Associated Artery/Lesion type: bypass graft [place] vs. transplanted heart: [place] heart Associated angina: without angina Qualified Code(s): I25.810 - Atherosclerosis of coronary artery bypass graft(s) without angina pectoris Plan: As above. (4) Hospital discharge follow-up: Code(s): Z09 - Encounter for follow-up examination after completed treatment for conditions other than malignant neoplasm Category: Medical Plan: As above. Advised heart healthy diet, regular exercise, smoking cessation, and management of vascular risk factors. Follow-up in 6 months. In the interim, patient will call the office with any concerns or change in symptoms. This note was generated using voice recognition software. While every effort has been made to ensure accuracy and proper adobe layer helper, there may be occasional errors that could affect the content or meaning of the described symptoms. Orders: Orders AMB EKG-In Office Today I42.2 - Other hypertrophic cardiomyopathy Coding Level of Care Code Est Pt Level 4 (38377) Complex EM visit Add On G2211 Diagnoses Hypertrophic cardiomyopathy I42.2 S/P cardiac cath Z98.890 Coronary artery disease involving coronary bypass graft of [place] heart without angina pectoris I25.810 Coronary Disease-Associated Artery/Lesion type: bypass graft [place] vs. transplanted heart: [place] heart Associated angina: without angina Hospital discharge follow-up Z09 CPT Codes EKG - CPT: 30042-Mjdcwxzyzslzpkcky, Complete ([id number]) Time Spent (min) 34 Comment Time spent in reviewing the chart, test results, assessment, counseling and documentation.
[2024-06-26 14:29] VITALS: BP 110/60; PULSE 46; BMI 25.0
--- OUTSIDE RECORDS SUMMARY | 2024-06-26 14:47 | XMS_ITS | Patient Health Record ---
Author Organization [facility] Address [address] [place] [address] Care Team Providers Care Ampoule Examiner Name Role Phone Neil Ny Unavailable [phone] Reason For Referral No Information Encounters Encounter Location Date [facility] [address] [address] 09/18/2023 Neil Ny Plan Of Treatment No Information Insurance Providers Payer Name Payer Address Payer Phone Subscriber Number Group Number Insured Name Patient Relationship to Insured Coverage Start Date Coverage End Date [facility] CCA SCO Claims [address] [place] [phone] [id number] Brady Rueda Self - patient is the insured
--- OUTSIDE RECORDS SUMMARY | 2024-06-26 14:47 | XMS_ITS ---
Author Organization [facility] [place] Address [address] [place] [address] Care Team Providers Care Tip Length Checker Name Role Phone Neil Ny Unavailable [phone] Encounters Encounter Location Date [facility] [address] [address] 09/20/2023 Neil Ny Plan Of Treatment No Information Progress Notes * Brady RUEDADOB:1965 (59 yo M)Acc No.[id number]:09/20/2023 Progress Notes Patient:?Brady RUEDA Provider:?Neil Ny DPM :1965???Age:58 Y???Sex:Male Francisco Javier e:09/20/2023 Address:[address] [place], [place] [id number] Subjective: * Chief Complaints: * ??? * Medical History:? Objective: * Vitals:? Assessment: Plan: * Treatment: * Images: * The named appointment provid er may or may not be the originator of this progress note, and it is not deemed complete until electronically signed by the appointment provider. Sign off status: Pending * Provider:?Neil Ny DPM Date:?2023 Generated for Angella larson/Ricky/eTdaianasmitting on:?06/26/2024 02:47 PM EDT
--- OUTSIDE RECORDS SUMMARY | 2024-06-26 14:47 | XMS_ITS | Clinical Summary ---
Author Organization [facility] ity Address [address] [place] [address] Care Team Providers Care Speck Dyer Name Role Phone Basil Hale MD Primary [...] age to complete this topic Care Teams Speck Dyer Relationship Specialty Start Date End Date Basil Hale MD PCP - General 02/18/17
--- OUTSIDE RECORDS SUMMARY | 2024-06-26 14:47 | XMS_ITS ---
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 Generated for Angella larson/Ricky/eTransmitting on:?06/26/2024 02:47 PM EDT
--- OUTSIDE RECORDS SUMMARY | 2024-06-26 14:48 | XMS_ITS | Clinical Summary ---
Author Organization [facility] Address [address] [facility] [address] [place] [address] Phone Care Team Providers Care Supervisor Intermediates Name Role Phone Unavailable Primary Care Provider [...] complete this topic Insurance ([id number]) [place] [id number] ([id number]) [place] [id number]
--- OUTSIDE RECORDS SUMMARY | 2024-06-26 14:48 | XMS_ITS ---
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 Generated for Angella larson/Ricky/eTransmitting on:?06/26/2024 02:47 PM EDT
== END 2024-06-26 14:51 | disposition home or self-care (01) ==
LOC: HO.HCS 13:51
PROVIDERS: PCP Physician Assistant
DX: I42.2 Other hypertrophic cardiomyopathy (principal); Z98.890 Other specified postprocedural states; I25.810 Atherosclerosis of coronary artery bypass graft(s) without angina pectoris; Z09 Encounter for follow-up examination after completed treatment for conditions other than malignant neoplasm
CPT/HCPCS: 93010; 99214; G2211

== ENCOUNTER → 2024-06-26 13:51 | Outpatient (BNVA) | payer OTHER, SELFPAY | PROVIDERS: PCP Physician Assistant | DX: Z09 Encounter for follow-up examination after completed treatment for conditions other than malignant neoplasm (principal); I42.2 Other hypertrophic cardiomyopathy; I25.810 Atherosclerosis of coronary artery bypass graft(s) without angina pectoris; Z98.890 Other specified postprocedural states | CPT/HCPCS: 93005; 99212 ==

== ENCOUNTER 2024-12-02 15:10 | Outpatient (AMB) | payer OTHER, SELFPAY ==
--- OUTSIDE RECORDS SUMMARY | 2023-09-20 10:00 | XMS_ITS ---
Author Organization [facility] [place] [place] Address [address] [place] [phone] Care Team Providers Care Superintendent Logging Name Role Phone Anant Neil Unavailable [phone] Encounters Encounter Location Date Provider Diagnosis [place] [facility] [address] [place] [phone] 09/20/2023 Neil Ny Plan Of Treatment No Information Progress Notes * Brady RUEDADOB:1965 (59 yo M)Acc No.[id number]:09/20/2023 Progress Notes Patient: Brady JOHNSTON Provider: Arti Ny DPM :1965 A ge:58 Y S ex:Male Date:09/20/2023 Address:[address] [place], [place] [id number] Subjective: * Chief Complaints: * * Medical History: Objective: * Vitals: Assessment: Plan: * Treatment: * Images: * The named appointment provid er may or may not be the originator of this progress note, and it is not deemed complete until electronically signed by the appointment provider. Sign off status: Pending * Provider: Arti Ny DPM Date: 0 09/20/2023 Generated for Angella larson/Ricky/eTransmitting on: 06:02 PM EDT
--- NOTE | 2024-12-02 15:10 | MHC.OFFVIS ---
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: No Accompanied by: Self / Same As Patient Allergies neff (CHERRIES) Allergy (Unknown, Verified 12/02/24 15:12) digestive issues (only with fresh) gluten (GLUTEN) Allergy (Unknown, Verified 12/02/24 15:12) digestive issues ibuprofen (From MOTRIN) Allergy (Unknown, Verified 12/02/24 15:12) UNKNOWN mayonnaise (MAYONNAISE) Allergy (Unknown, Verified 12/02/24 15:12) digestive issues Penicillins (PENICILLINS) Allergy (Unknown, Verified 12/02/24 15:12) UNKNOWN rosuvastatin (Crestor) Allergy (Unknown, Verified 12/02/24 15:12) unknown soy (SOY) Allergy (Unknown, Verified 12/02/24 15:12) digestive issue Sulfa (Sulfonamide Antibiotics) (SULFA (SULFONAMIDE ANTIBIOTICS)) Allergy (Unknown, Verified 12/02/24 15:12) unknown wheat (WHEAT) Allergy (Unknown, Verified 12/02/24 15:12) digestive issues lamotrigine (LAMOTRIGINE) Adverse Reaction (Intermediate, Verified 12/02/24 15:12) HEADACHES oxycodone (OXYCODONE) Adverse Reaction (Intermediate, Verified 12/02/24 15:12) racing thoughts APPLE JUICE Allergy (Unknown, Uncoded 06/20/24 15:10) digestive issues fresh sridevi cherries Allergy (Unknown, Uncoded 06/20/24 15:10) unknown HPI Comments Details: Brady is a pleasant male. He is a patient of Dr. Cheung. He seen for the following urologic conditions - lower urinary tract symptoms Telemedicine Evaluation 15 min Consultation DoximSTEARCLEAR Anna Video Discussion regarding GreenLight laser procedure Lower urinary tract symptoms Progressive On alfuzosin Bladder ultrasound prostate 60 cc [facility] Medical History Hypothyroidism Bipolar disorder Presence of stent in LAD coronary artery Chronic kidney disease Ischemic colitis Schizoaffective disorder CAD (coronary artery disease) Surgical History S/P cardiac cath History of heart artery stent History of cholecystectomy History of appendectomy History of tonsillectomy Family History Father Liver cancer Monoallelic mutation of MET gene Mother Arthritis Cancer Pacemaker Sister Parkinson disease Other Mental health disorder Social History Housing: House Alcohol intake: current Alcohol intake frequency: a few times a week Alcohol type: wine Patient Tobacco Use Status: Current everyday Tobacco user Tobacco use type: Cigar Cigarette Packs Per Day: 0.5 Cigarettes Per Day: 10 Years Smoked: 12 years e-Cigarette/Vaping Use: Currently Using Second Hand Smoke Exposure: Yes Substance Use Type: Marijuana service: No Current occupational status: employed 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 Cognitive needs: No Hearing needs: No Vision needs: Yes (glasses) Review of Systems Const All systems reviewed & are unremarkable except as noted in HPI and below Reports no additional complaints Resp Reports no additional complaints GI Reports no additional complaints Reports as per HPI Musc Reports no additional complaints Physical Exam Telemedicine evaluation Appropriate responses Regular breathing rate and rhythm HEENT Head: Yes normal to inspection Ears: hearing grossly normal bilaterally Eyes General: appearance normal, both eyes and all related structures Neck Neck: Yes normal visual inspection Chest Chest palpation & inspection: normal inspection of the chest Resp Effort & Inspection: normal respiratory effort and able to speak in complete sentences Telehealth Telehealth Telehealth Platform: BonaYou Location of provider rendering services: practice address Location of patient: address on file Patient Identification confirmed using: Name, : Yes Telehealth method: video Patient verbally consented to treatment: Yes Patient verbally consented to billing insurance company: Yes Patient informed of any privacy concerns related to visit: Yes Minutes spent on Phone/Video with Pt.: 15 Assessment & Plan Assessment & Plan (1) BPH (benign prostatic hyperplasia): Code(s): N40.0 - Benign prostatic hyperplasia without lower urinary tract symptoms Category: Medical Qualifiers: Lower urinary tract symptom presence: symptoms present Lower urinary tract symptom detail: weak urinary stream Qualified Code(s): N40.1 - Benign prostatic hyperplasia with lower urinary tract symptoms; R39.12 - Poor urinary stream Plan We discussed the nature of the decision and reasonable options for performing a prostate intervention. Interventions include TURP, GreenLight laser enucleation of the prostate, GreenLight laser ablation of the prostate, transurethral incision of the prostate, and I-Tend prostate procedure. Options such as medical therapy were discussed. The relative uncertainties and benefits related to each alternate procedure were adequately discussed. General surgical risks including, but not limited to, pain, bleeding, infection, myocardial infarction, pulmonary embolus, deep vein thrombosis and cerebrovascular accident which may result in further hospitalization were discussed. Full disclosure of the procedure as well as all major risks, benefits and complications were discussed including but not limited to damage to the urethra or bladder neck, recurrent BPH, retrograde ejaculation, bladder infection, urge, de trang frequency, incomplete emptying, dysuria, remote chance of erectile dysfunction, epididymitis, and meatal stenosis. The success rate of the procedure was discussed. Success of the procedure in the short-term does not necessarily guarantee that long-term success will be maintained. Suitable follow up will need to be maintained. The patient showed understanding of discussion. An opportunity was provided for questions to be answered and wishes to proceed with the following procedure. - GreenLight laser prostate Medications: New finasteride 5 mg PO DAILY 90 tabs 1RF 90 days N40.1 - Benign prostatic hyperplasia with lower urinary tract symptoms, R39.12 - Poor urinary stream Patient Instructions: This note is constructed using voice recognition software. While every effort has been made to ensure accuracy central office associate errors may have been included. Imaging studies, laboratory and physical exam results were discussed and reviewed in detail. No major barriers to patient understanding were identified. An opportunity to ask questions regarding the treatment plan was provided. All questions were answered. The patient expressed understanding and agreement with the above treatment plan. The patient is aware they should contact our office by phone for worsening of their current condition or the appearance of new urologic symptoms. Compliance is encouraged with any medications and followup testing that is ordered. It is a privilege to participate in the urologic care of your patient. If you have any questions or concerns regarding treatment for the above conditions, or other urologic issues, please do not hesitate to contact me. The office telephone contact is [phone]. Sincerely, Dr Nathanael Rutledge MD, [facility] - Urology Compassionate Specialist Care for the Genitourinary System Coding Level of Care Code Tele Est Pt Level 3 (83686) Complex EM visit Add On G2211 Diagnoses Benign prostatic hyperplasia with weak urinary stream N40.1; R39.12 Lower urinary tract symptom presence: symptoms present Lower urinary tract symptom detail: weak urinary stream
--- OUTSIDE RECORDS SUMMARY | 2024-12-02 18:03 | XMS_ITS | Patient Health Record ---
Author Organization [facility] Address [address] [place] [address] Care Team Providers Care Gill Tender Name Role Phone Neil Ny Unavailable [phone] Reason For Referral No Information Plan Of Treatment No Information Insurance Providers Payer Name Payer Address Payer Phone Subscriber Number Group Number Insured Name Patient Relationship to Insured Coverage Start Date Coverage End Date [facility] [employer] [address] [place] [id number] Brady Rueda Self - patient is the insured
== END 2024-12-02 16:03 | disposition home or self-care (01) ==
LOC: HO.HUSH 15:10
PROVIDERS: PCP Physician Assistant; Visit Provider Urology
DX: N40.1 Benign prostatic hyperplasia with lower urinary tract symptoms (principal); R39.12 Poor urinary stream
CPT/HCPCS: 99213; G2211

== ENCOUNTER 2025-01-06 13:13 | Outpatient (AMB) | payer OTHER, SELFPAY ==
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
[2025-01-06 13:29] VITALS: BP 110/62; PULSE 65; TEMP 36.6; O2SAT 94; BMI 25.5
== END 2025-01-06 14:04 | disposition home or self-care (01) ==
LOC: HO.HMCH 13:14
PROVIDERS: PCP Physician Assistant; Visit Provider Physician Assistant
DX: Z00.00 Encounter for general adult medical examination without abnormal findings (principal); L71.9 Rosacea, unspecified; N40.1 Benign prostatic hyperplasia with lower urinary tract symptoms; R39.12 Poor urinary stream; E03.9 Hypothyroidism, unspecified; E78.2 Mixed hyperlipidemia; I25.810 Atherosclerosis of coronary artery bypass graft(s) without angina pectoris; N18.30 Chronic kidney disease, stage 3 unspecified; F17.200 Nicotine dependence, unspecified, uncomplicated; L84 Corns and callosities; H52.4 Presbyopia; F25.1 Schizoaffective disorder, depressive type

== ENCOUNTER → 2025-01-06 13:13 | Outpatient (BNVA) | payer OTHER, SELFPAY | PROVIDERS: PCP Physician Assistant; Visit Provider Physician Assistant | DX: Z00.00 Encounter for general adult medical examination without abnormal findings (principal); N40.1 Benign prostatic hyperplasia with lower urinary tract symptoms; R39.12 Poor urinary stream; E03.9 Hypothyroidism, unspecified; E78.2 Mixed hyperlipidemia; I25.810 Atherosclerosis of coronary artery bypass graft(s) without angina pectoris; L71.9 Rosacea, unspecified; N18.30 Chronic kidney disease, stage 3 unspecified; L84 Corns and callosities; H52.4 Presbyopia; F25.1 Schizoaffective disorder, depressive type; F17.210 Nicotine dependence, cigarettes, uncomplicated | CPT/HCPCS: 96127; 99396 ==

== ENCOUNTER 2025-01-08 14:54 | Outpatient (AMB) | payer OTHER, SELFPAY ==
[2025-01-08 15:00] VITALS: BP 130/70; PULSE 60; BMI 25.5
--- NOTE | 2025-01-08 15:00 | A.OFFVIS_ITS ---
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: No Accompanied by: Other Relationship Allergies neff (CHERRIES) Allergy (Unknown, Verified 01/08/25 15:03) digestive issues (only with fresh) gluten (GLUTEN) Allergy (Unknown, Verified 01/08/25 15:03) digestive issues ibuprofen (From MOTRIN) Allergy (Unknown, Verified 01/08/25 15:03) UNKNOWN mayonnaise (MAYONNAISE) Allergy (Unknown, Verified 01/08/25 15:03) digestive issues Penicillins (PENICILLINS) Allergy (Unknown, Verified 01/08/25 15:03) UNKNOWN rosuvastatin (Crestor) Allergy (Unknown, Verified 01/08/25 15:03) unknown soy (SOY) Allergy (Unknown, Verified 01/08/25 15:03) digestive issue Sulfa (Sulfonamide Antibiotics) (SULFA (SULFONAMIDE ANTIBIOTICS)) Allergy (Unknown, Verified 01/08/25 15:03) unknown wheat (WHEAT) Allergy (Unknown, Verified 01/08/25 15:03) digestive issues lamotrigine (LAMOTRIGINE) Adverse Reaction (Intermediate, Verified 01/08/25 15:03) HEADACHES oxycodone (OXYCODONE) Adverse Reaction (Intermediate, Verified 01/08/25 15:03) racing thoughts APPLE JUICE Allergy (Unknown, Uncoded 01/06/25 13:38) digestive issues fresh sridevi cherries Allergy (Unknown, Uncoded 01/06/25 13:38) unknown Medication List - Last Reconciled 01/08/25 by Adam Sheth NP alfuzosin ER 10 mg PO BEDTIME 90 days aspirin 81 mg PO DAILY benztropine mg PO fexofenadine 180 mg PO DAILY PRN finasteride 5 mg PO DAILY 90 days levothyroxine 25 mcg PO DAILY 90 days lorazepam 1 mg PO DAILY PRN lurasidone 40 mg PO BEDTIME metronidazole 1% (Metrogel) 1 appl topical BEDTIME 4 weeks nitroglycerin 0.4 mg sublingual Q5M HPI Comments Details: This is a 59-year-old male patient coming in for a follow-up visit, accompanied by his partner. Patient with a history of hypertrophic cardiomyopathy, hyperlipidemia, and coronary artery disease status post prior LAD PCI who underwent another cardiac catheterization for chest pain back in April of 2024 showing patent stents and no lesions. Today, patient is reporting feeling well overall without any cardiac symptoms of exertional chest pain, shortness of breath, palpitations, dizziness, orthopnea, PND, leg edema, presyncope or syncope. Patient does note that previously at [facility] he had done a Holter monitor for sinus bradycardia which we have tried to locate however have not been able to. Patient states that he has not been able to get a report either. Patient is otherwise reporting compliance with all his medications. Patient does note that he is going for a laser procedure for his prostate in January and is asking about holding aspirin. [facility] Medical History Hypothyroidism Bipolar disorder Presence of stent in LAD coronary artery Chronic kidney disease Ischemic colitis Schizoaffective disorder CAD (coronary artery disease) Surgical History S/P cardiac cath History of heart artery stent History of cholecystectomy History of appendectomy History of tonsillectomy Family History Father Liver cancer Monoallelic mutation of MET gene Mother Arthritis Cancer Pacemaker Sister Parkinson disease Other Mental health disorder Social History Housing: House Alcohol intake: current Alcohol intake frequency: a few times a week Alcohol type: wine Patient Tobacco Use Status: Current everyday Tobacco user Tobacco use type: Cigarette Cigarette Packs Per Day: 1 Cigarettes Per Day: 20 Years Smoked: 12 years e-Cigarette/Vaping Use: Currently Using Second Hand Smoke Exposure: Yes Substance Use Type: Marijuana service: No Current occupational status: employed 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 Cognitive needs: No Hearing needs: No Vision needs: Yes (glasses) Review of Systems Const Denies daytime sleepiness, Denies difficulty sleeping, Denies snoring, Denies stops breathing during sleep and Denies weakness Card Denies chest pain, Denies rapid heart rate, Denies irregular heart rhythm, Denies claudication, Denies leg edema, Denies lightheadedness, Denies palpitations, Denies dyspnea, Denies dyspnea on exertion, Denies orthopnea, Denies paroxysmal nocturnal dyspnea and Denies slow heart rate Resp Denies cough, Denies dyspnea, Denies dyspnea on exertion and Denies snoring GI Reports no additional complaints, Denies hematochezia, Denies change in stool character and Denies dyspepsia Musc Denies abnormal gait, Denies muscle weakness and Denies numbness Neuro Denies abnormal gait, Denies numbness and Denies weakness Endo Denies palpitations Physical Exam Vital Signs: Last Vital Signs Pulse 60 01/08/25 15:00 BP 130/70 01/08/25 15:00 BMI result Body Mass Index 25.5 Const General: cooperative, healthy appearing, comfortable and no acute distress Orientation/consciousness: patient oriented x3 HEENT Head: Yes normal to inspection Neck Neck: Yes normal visual inspection, Yes trachea midline and Yes supple Chest Chest palpation & inspection: normal inspection of the chest Resp Effort & Inspection: normal respiratory effort Auscultation: clear to auscultation bilaterally, no crackles, no rales, no rhonchi and no wheezes Cardio Jugular venous distension: no JVD Palpation: normal PMI Rate: regular rate Rhythm: regular rhythm Heart sounds: S1 normal heart sound present, S2 normal heart sound present, no click, no gallops, Murmur heart sound present systolic and no rubs Peripheral pulses: Peripheral pulses 2+ throughout GI Inspection: Yes normal to inspection Palpation (GI): Soft to palpation Auscultation: normal bowel sounds Skin General skin exam: no rashes or lesions noted Neuro General: patient oriented x3 Extrem General: Yes normal to inspection, No no pedal edema and No calf tenderness Psych Appearance: grossly normal Mental Status: mental status grossly normal Speech and movement: Normal speech and movement present Assessment & Plan Assessment & Plan (1) Hypertrophic cardiomyopathy: Code(s): I42.2 - Other hypertrophic cardiomyopathy Category: Medical Plan: 06/19/2024-echo study showed LV systolic function with an ejection fraction greater than 70%, with severe septal asymmetric hypertrophy, LVOT gradient at rest at 35 mmHg, post Valsalva at 41 mmHg, and systolic anterior motion of the mitral valve. Patient has been previously evaluated by EP for possible ICD implantation however patient was deemed low risk for sudden cardiac . Clinically euvolemic and stable. Patient previously had reported completing a Holter with [facility] for sinus bradycardia as low as 30 beats per minute during sleep. We have not been able to obtain these records and patient states that he has not been to get either. Completely asymptomatic with no dizziness lightheadedness or fatigue feeling. We will continue to monitor this. Patient does note that when he is moving around his heart rate does go up appropriately. If patient develops any symptoms with low heart rate, we can obtain a Holter at that time. Heart rate today is stable and regular. (2) CAD (coronary artery disease): Code(s): I25.10 - Atherosclerotic heart disease of [place] coronary artery without angina pectoris Category: Medical Qualifiers: Associated angina: without angina Coronary Disease-Associated Artery/Lesion type: bypass graft [place] vs. transplanted heart: [place] heart Qualified Code(s): I25.810 - Atherosclerosis of coronary artery bypass graft(s) without angina pectoris Plan: 05/13/2024-patient underwent cardiac catheterization which showed patent LAD stent and minimal luminal irregularities in the RCA. Patient was previously on rosuvastatin however he has stopped this due to side effects. Patient is not on any statin therapy at this moment. We will obtain a lipid profile with a goal of LDL less than 60. Patient does verbalize understanding that if his lipid profiles elevated then he might need to go on some regimen. Pt is plannnig to undergo prostate surgery with laser. Pt can hold aspirin 5 days prior to surgery date and resume on Surgeon's discression. Reviewed this with Dr. Cunningham. (3) S/P cardiac cath: Comment: No significant LM disease, widely patent LAD stent, mild proximal LCx plaque, no significant RCA disease in large dominant vessel, intracavity LVOT gradiant 60- 65mmhg Code(s): Z98.890 - Other specified postprocedural states Category: Surgical Plan: As above. Advised heart healthy diet, regular exercise, med complaince and aggressive management of vascular risk factors. Follow up in 6 months. In the interim, pt will call the office with concerns or change in symptoms. Advised to seek ER care incase of exertional CP not resolved with rest. This note was generated using voice recognition software. While every effort has been made to ensure accuracy and proper adjunct trainer, there may be occasional errors that could affect the content or meaning of the described symptoms. Orders: Orders Lipid Panel Today Adam Sheth NP I25.810 - Atherosclerosis of coronary artery bypass graft(s) without angina pectoris Medications: Changed From fexofenadine 180 mg PO DAILY 90 days 90 tabs 2RF J30.9 - Allergic rhinitis, unspecified To fexofenadine 180 mg PO DAILY PRN J30.9 - Allergic rhinitis, unspecified Omid Cheung PA-C Coding Level of Care Code Est Pt Level 4 (51264) Complex visit Add On G2211 Diagnoses Hypertrophic cardiomyopathy I42.2 Coronary artery disease involving coronary bypass graft of [place] heart without angina pectoris I25.810 Associated angina: without angina Coronary Disease-Associated Artery/Lesion type: bypass graft [place] vs. transplanted heart: [place] heart S/P cardiac cath Z98.890 Time Spent (min) 34 Comment Time spent in reviewing the chart, test results, assessment, counseling and documentation.
--- OUTSIDE RECORDS SUMMARY | 2025-01-08 20:23 | XMS_ITS | Clinical Summary ---
Author Organization [facility] ity Address [address] [place] [address] Care Team Providers Care Independent Consultant Name Role Phone Basil Hale MD Primary [...] Date Last Done Comments Pneumococcal Vaccine: 50+ Years (1 of 1 - PCV) 2014 Zoster Vaccines (1 of 2) 2014 DTaP,Tdap,and Td Vaccines (2 - Td or Tdap) 12/30/2018 12/30/2008 Depression Screening 02/20/2024 COVID-19 Vaccine (1 - 2024- season) 2024 Influenza Vaccine (#1) 2024 7, 01/09/2011, 02/03/2009, Additional history exists RSV [...] age to complete this topic Care Teams Independent Consultant Relationship Specialty Start Date End Date Basil Hale MD PCP - General 02/18/17
== END 2025-01-08 15:32 | disposition home or self-care (01) ==
LOC: HO.HCS 14:55
PROVIDERS: PCP Physician Assistant
DX: I42.2 Other hypertrophic cardiomyopathy (principal); I25.810 Atherosclerosis of coronary artery bypass graft(s) without angina pectoris; Z98.890 Other specified postprocedural states
CPT/HCPCS: 99214; G2211

== ENCOUNTER → 2025-01-08 14:54 | Outpatient (BNVA) | payer OTHER, SELFPAY | PROVIDERS: PCP Physician Assistant | DX: I25.810 Atherosclerosis of coronary artery bypass graft(s) without angina pectoris (principal); I42.2 Other hypertrophic cardiomyopathy; Z98.890 Other specified postprocedural states | CPT/HCPCS: 99212 ==

== ENCOUNTER 2025-02-02 12:35 | Day surgery (SDC) | payer OTHER, SELFPAY ==
--- OUTSIDE RECORDS SUMMARY | 2023-09-20 09:00 | XMS_ITS ---
Author Organization [facility] [place] Address [address] [place] [id number] Care Team Providers Care Pelletizer Tender Name Role Phone Neil Ny Unavailable [phone] Encounters Encounter Location Date Provider [facility] [address] [place] [phone] 09/20/2023 Neil Ny Plan Of Treatment No Information Progress Notes * Brady RUEDADOB:1965 (59 yo M)Acc No.[id number]:09/20/2023 Progress Notes Patient: Brady JOHNSTON Provider: Arti Ny DPM :1965 A ge:58 Y S ex:Male Date:09/20/2023 Address:[address] [place], [place] [id number] Subjective: * Chief Complaints: * * Medical History: Objective: * Vitals: Assessment: Plan: * Treatment: * Images: * The named appointment provid er may or may not be the originator of this progress note, and it is not deemed complete until electronically signed by the appointment provider. Sign off status: Pending * Provider: Arti Ny DPM Date: 0 09/20/2023 Generated for Angella larson/Ricky/eTdaianasmitting on: 03/10/2024 01:53 AM EST
--- OUTSIDE RECORDS SUMMARY | 2025-01-08 01:54 | XMS_ITS | Clinical Summary ---
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
--- OUTSIDE RECORDS SUMMARY | 2025-01-08 01:54 | XMS_ITS | Patient Health Record ---
Author Organization [facility] Roxanna Palacioley Address [address] [place] [address] Care Team Providers Care Data Modeler Name Role Phone Neil Ny Unavailable [phone] Reason For Referral No Information Plan Of Treatment No Information Insurance Providers Payer Name Payer Address Payer Phone Subscriber Number Group Number Insured Name Patient Relationship to Insured Coverage Start Date Coverage End Date [facility] [employer] Claims [address] [place] [id number] Brady Rueda Self - patient is the insured
--- NOTE | 2025-01-28 12:55 | HO.ANESPROP2 ---
Documented by User: Veronika Lynch NP 01/28/25 13:08 HPI - Anesthesia Eval Consult details Narrative: 59 yr old male for Laser Ablation Prostate w/Green Light CAD: Follows [facility] cardiology, last visit 12/2024, stable, no outstanding cardiac testing. -05/13/2024-patient underwent cardiac catheterization which showed patent LAD stent and minimal luminal irregularities in the RCA. - Per most recent cardiology note: No significant LM disease, widely patent LAD stent, mild proximal LCx plaque, no significant RCA disease in large dominant vessel, intracavity LVOT gradiant 60-65mmhg. Hypertrophic cardiomyopathy: -06/19/2024-echo study showed LV systolic function with an ejection fraction greater than 70%, with severe septal asymmetric hypertrophy, LVOT gradient at rest at 35 mmHg, post Valsalva at 41 mmHg, and systolic anterior motion of the mitral valve. -Patient has been previously evaluated by EP for possible ICD implantation however patient was deemed low risk for sudden cardiac . [facility] Active Problems Active Problems: All Active Problems (Updated 01/06/25 @ 13:53 by Omid Cheung PA-C) Presbyopia of both eyes (Acute) [place] of foot (Acute) Onychomycosis (Acute) Acne rosacea (Acute) Skin lesion of back (Acute) Chest pain (Acute) Systolic murmur (Acute) URI (upper respiratory infection) (Acute) Bradycardia (Acute) Urinary retention (Acute) Foot callus (Acute) Tailbone injury (Acute) Hypotension (Acute) BPH (benign prostatic hyperplasia) (Acute) Hypertrophic cardiomyopathy (Acute) Tobacco dependence (Acute) Bipolar disorder (Acute) Annual physical exam (Acute) Hypothyroidism (Acute) Hospital discharge follow-up (Acute) S/P cardiac cath (Acute) Schizoaffective disorder (Acute) CAD (coronary artery disease) (Acute) Allergic rhinitis (Acute) HLD (hyperlipidemia) (Acute) Vertigo (Acute) S/P coronary angioplasty (Acute) Blunt trauma of left lower leg (Acute) Dermatitis (Acute) Asthma (Acute) CKD (chronic kidney disease) stage 3, GFR 30-59 ml/min (Acute) Tinnitus of right ear (Acute) Right SNHL (Acute) Lipoma of back (Acute) Acne vulgaris (Acute) Obese (Acute) Past Medical History Medical History Hypothyroidism Bipolar disorder Presence of stent in LAD coronary artery Chronic kidney disease Ischemic colitis Schizoaffective disorder CAD (coronary artery disease) Family History Family History Father Liver cancer Monoallelic mutation of MET gene Mother Arthritis Cancer Pacemaker Sister Parkinson disease Other Mental health disorder Surgical History Surgical History S/P cardiac cath History of heart artery stent History of cholecystectomy History of appendectomy History of tonsillectomy Social History Social History Housing: House Alcohol intake: current Alcohol intake frequency: a few times a week Alcohol type: wine Patient Tobacco Use Status: Current everyday Tobacco user Tobacco use type: Cigarette Cigarette Packs Per Day: 1 Cigarettes Per Day: 20.0 Years Smoked: 12 years e-Cigarette/Vaping Use: Currently Using Second Hand Smoke Exposure: Yes Use of substances other than those prescribed or required for medical reasons: Yes Substance Use Type: Marijuana Advance Directives: No Advance Directives Information Provided: Yes service: No Current occupational status: employed 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 Cognitive needs: No Hearing needs: No Vision needs: Yes (glasses) Meds Allergies Allergy/AdvReac Type Severity Reaction Status Date / Time neff (CHERRIES) Allergy Unknown digestive Verified 02/02/25 12:46 issues (only with fresh) gluten (GLUTEN) Allergy Unknown digestive Verified 02/02/25 12:46 issues ibuprofen (From MOTRIN) Allergy Unknown UNKNOWN Verified 02/02/25 12:46 mayonnaise (MAYONNAISE) Allergy Unknown digestive Verified 02/02/25 12:46 issues Penicillins (PENICILLINS) Allergy Unknown UNKNOWN Verified 02/02/25 12:46 rosuvastatin (Crestor) Allergy Unknown unknown Verified 02/02/25 12:46 soy (SOY) Allergy Unknown digestive Verified 02/02/25 12:46 issue Sulfa (Sulfonamide Allergy Unknown unknown Verified 02/02/25 12:46 Antibiotics) (SULFA (SULFONAMIDE ANTIBIOTICS)) wheat (WHEAT) Allergy Unknown digestive Verified 02/02/25 12:46 issues lamotrigine (LAMOTRIGINE) AdvReac Intermediate HEADACHES Verified 02/02/25 12:46 oxycodone (OXYCODONE) AdvReac Intermediate racing Verified 02/02/25 12:46 thoughts APPLE JUICE Allergy Unknown digestive Uncoded 02/02/25 12:46 issues fresh sridevi cherries Allergy Unknown unknown Uncoded 02/02/25 12:46 Home Medications ?Medication ?Instructions ?Recorded ?Confirmed ?Last Taken ?Type lorazepam 1 mg tablet 1 mg PO DAILY PRN Anxiety 06/13/22 01/29/25 Unknown History benztropine 0.5 mg tablet mg PO 06/18/23 01/08/25 02/02/25 History lurasidone 20 mg tablet 40 mg PO BEDTIME 01/30/24 01/29/25 Unknown History fexofenadine 180 mg tablet 180 mg PO DAILY PRN Allergy 01/08/25 01/29/25 Unknown History Symptoms Exam Pertinent Lab Results Pertinent Lab Results: Laboratory Tests 04/23/24 16:04 WBC 7.5 RBC 5.11 Hgb 16.2 Hct 46.9 Plt Count 144 L Sodium 142 Potassium 4.5 BUN 14 Creatinine 0.80 Narrative Narrative: ECHO 06/2024 Conclusions: - Normal left ventricular cavity size. The left ventricular systolic function is hyperdynamic. The visually estimated ejection fraction is >70%. - There is severe septal asymmetric hypertrophy. - There is systolic anterior motion of the mitral valve. - LVOT gradient at rest 35 mm Hg, post valsalva 41 mm Hg. - Normal right ventricular cavity size and systolic function. Findings Left Ventricle Normal left ventricular cavity size. The left ventricular systolic function is hyperdynamic. The visually estimated ejection fraction is >70%. There is no evidence of regional wall motion abnormalities. There is systolic anterior motion of the mitral valve. Diastolic function is indeterminate on the basis of available data. There is severe septal asymmetric hypertrophy. LVOT gradient at rest 35 mm Hg, post valsalva 41 mm Hg. Right Ventricle Normal right ventricular cavity size and systolic function. EKG 06/2024 sinus gabriel with 1st degree AV blcok, rate 46 ST & T wave abnormality, consider inferior ischemia ST & T wave abnormality, consider anterolateral ischemia Documented by User: Tulio Zaldivar MD 02/02/25 14:32 [facility] Past Medical History Medical History Hypothyroidism Bipolar disorder Presence of stent in LAD coronary artery Chronic kidney disease Ischemic colitis Schizoaffective disorder CAD (coronary artery disease) Functional capacity: independent ambulation Family History Family History Father Liver cancer Monoallelic mutation of MET gene Mother Arthritis Cancer Pacemaker Sister Parkinson disease Other Mental health disorder Family history of problems with anesthesia: No Surgical History Surgical History S/P cardiac cath History of heart artery stent History of cholecystectomy History of appendectomy History of tonsillectomy History of Problems with Anesthesia: No Social History Social History Housing: House Alcohol intake: current Alcohol intake frequency: a few times a week Alcohol type: wine Patient Tobacco Use Status: Current everyday Tobacco user Tobacco use type: Cigarette Cigarette Packs Per Day: 1 Cigarettes Per Day: 20.0 Years Smoked: 12 years e-Cigarette/Vaping Use: Currently Using Second Hand Smoke Exposure: Yes Use of substances other than those prescribed or required for medical reasons: Yes Substance Use Type: Marijuana Advance Directives: No Advance Directives Information Provided: Yes service: No Current occupational status: employed 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 Cognitive needs: No Hearing needs: No Vision needs: Yes (glasses) Meds Allergies Allergy/AdvReac Type Severity Reaction Status Date / Time neff (CHERRIES) Allergy Unknown digestive Verified 02/02/25 12:46 issues (only with fresh) gluten (GLUTEN) Allergy Unknown digestive Verified 02/02/25 12:46 issues ibuprofen (From MOTRIN) Allergy Unknown UNKNOWN Verified 02/02/25 12:46 mayonnaise (MAYONNAISE) Allergy Unknown digestive Verified 02/02/25 12:46 issues Penicillins (PENICILLINS) Allergy Unknown UNKNOWN Verified 02/02/25 12:46 rosuvastatin (Crestor) Allergy Unknown unknown Verified 02/02/25 12:46 soy (SOY) Allergy Unknown digestive Verified 02/02/25 12:46 issue Sulfa (Sulfonamide Allergy Unknown unknown Verified 02/02/25 12:46 Antibiotics) (SULFA (SULFONAMIDE ANTIBIOTICS)) wheat (WHEAT) Allergy Unknown digestive Verified 02/02/25 12:46 issues lamotrigine (LAMOTRIGINE) AdvReac Intermediate HEADACHES Verified 02/02/25 12:46 oxycodone (OXYCODONE) AdvReac Intermediate racing Verified 02/02/25 12:46 thoughts APPLE JUICE Allergy Unknown digestive Uncoded 02/02/25 12:46 issues fresh sridevi cherries Allergy Unknown unknown Uncoded 02/02/25 12:46 Home Medications ?Medication ?Instructions ?Recorded ?Confirmed ?Last Taken ?Type lorazepam 1 mg tablet 1 mg PO DAILY PRN Anxiety 06/13/22 01/29/25 Unknown History benztropine 0.5 mg tablet mg PO 06/18/23 01/08/25 02/02/25 History lurasidone 20 mg tablet 40 mg PO BEDTIME 01/30/24 01/29/25 Unknown History fexofenadine 180 mg tablet 180 mg PO DAILY PRN Allergy 01/08/25 01/29/25 Unknown History Symptoms Exam Exam Date and Time: 02/02/25 Airway Mallampati Class: III TM Dist: >3cm Neck ROM: Full Heart: rrr Lungs: cta Other: normal Assessment and Plan Assessment Anesthesia Assessment: Anesthesia Plan Discussed and Chart Reviewed Final Anesthetic Review Family History of Problems with Anesthesia: No History of Problems with Anesthesia: No NPO: Yes ASA Class: III Final Preanesthetic Review: No Changes in Pt Med Stat, Meds/Allgs Chart Reviewed, Consent Obtained/Reviewed and Anes Risks/Benef Reviewed Patient Risk: Low Procedure Risk: Low Anesthetic Plan Anesthetic Plan: GA and MAC: Disposition: Standard PACU
[2025-01-29 08:07] VITALS: BMI 25.5
[2025-02-02 12:49] VITALS: BMI 25.8
[2025-02-02 13:02] VITALS: BP 114/76; PULSE 64; RESP 20; TEMP 36.7; O2SAT 99
[2025-02-02] MEDS: Lactated Ringers 1,000 ML 100 ML IVCONT (13:04)
--- NOTE | 2025-02-02 14:55 | P.HPSUR_ITS ---
Pre-Procedural Eval Section A - 24 Hr Update-Section A only Date of Service: 02/02/25 The patient is an INPATIENT: No Changes since office visit: No Cold of Flu in the past 2 weeks, No New Medical Problems, No Changes in Medication and No Patient answered all questions The patient has been examined within 24 hours of the surgical procedure. The History & Physical has been completed within 30 days and I have reviewed it.: No Section B - Complete if H&P > 30 days Chief Complaint: Bladder-neck obstruction Details of Present Illness: Progressive bladder outlet obstruction Relevant Family History (Specify if Yes): No Relevant Social History: None Present Medications: see Short Stay Collaborative assessment Medical History: No relevant PMH History of Previous Operations: No relevant previous surgery Allergies: Allergies Allergy/AdvReac Type Severity Reaction Status Date / Time neff (CHERRIES) Allergy Unknown digestive Verified 02/02/25 12:46 issues (only with fresh) gluten (GLUTEN) Allergy Unknown digestive Verified 02/02/25 12:46 issues ibuprofen (From MOTRIN) Allergy Unknown UNKNOWN Verified 02/02/25 12:46 mayonnaise (MAYONNAISE) Allergy Unknown digestive Verified 02/02/25 12:46 issues Penicillins (PENICILLINS) Allergy Unknown UNKNOWN Verified 02/02/25 12:46 rosuvastatin (Crestor) Allergy Unknown unknown Verified 02/02/25 12:46 soy (SOY) Allergy Unknown digestive Verified 02/02/25 12:46 issue Sulfa (Sulfonamide Allergy Unknown unknown Verified 02/02/25 12:46 Antibiotics) (SULFA (SULFONAMIDE ANTIBIOTICS)) wheat (WHEAT) Allergy Unknown digestive Verified 02/02/25 12:46 issues lamotrigine (LAMOTRIGINE) AdvReac Intermediate HEADACHES Verified 02/02/25 12:46 oxycodone (OXYCODONE) AdvReac Intermediate racing Verified 02/02/25 12:46 thoughts APPLE JUICE Allergy Unknown digestive Uncoded 02/02/25 12:46 issues fresh sridevi cherries Allergy Unknown unknown Uncoded 02/02/25 12:46 Review of Systems Sugical H&P ROS: Negative: Constitution, Cardiovascular, Respiratory, Neurological, Psychiatric, Hem-Onc, Allergic/Immunologic, Gastrointestinal, Genitourinary, Musculoskeletal, Integumentary, Endocrine and Eyes/Ears/Nose/Throat Exam Surgical H&P Exam: Normal: HEENT, Normal: Heart, Normal: Lungs, Normal: Extr emities, Normal: Abdomen, Normal: Skin and Normal: Neurological Plan Diagnosis/Plan: Unchanged (GreenLight laser enucleation prostate) I have reviewed the history and physical and performed a pertinent physical examination on my patient. No changes have occurred unless specified. Time Spent With Patient Time: Total time managing care of this patient today ____ minutes.
--- NOTE | 2025-02-02 15:58 | W.PM.OPN ---
Operative Note Operative Note Date of Service: 02/02/25 Narrative: PreOperative Diagnosis: Bladder outlet obstruction Post Operative Diagnosis: Bladder outlet obstruction Procedure: GreenLight Laser Enucleation of the prostate CPT 76140 Surgeon: Dr Nathanael Rutledge Anesthesia: General History of bladder outlet obstruction. Treated with alpha-danielle and other medications. Still with symptoms. On cystoscopy in office has mild trilobar hypertrophy. Recommendation for prostate procedure with laser enucleation of prostate. Risks and benefits have been discussed. Focus was placed on development of retrograde ejaculation which is a normal part of this procedure. Published revision rates are approximately 30-50% at 8-10 years following the procedure. Procedure: After informed consent was verified the patient was brought to the operating room and placed in a supine position. Anesthesia was administered per protocol. Patient was placed in modified dorsal lithotomy position and prepped and draped in a sterile fashion. Safety pause time-out was confirmed. Antibiotics have been given. A Twenty-four [place] laser cystoscope was inserted per urethra. No abnormalities were found of the anterior and bulbar urethra. The prostatic urethra shows mild trilobar hypertrophy. The bladder was examined and both ureteric orifices were seen in their normal positions away from the area of interest. Bladder trabeculation grade 1. A GreenLight laser with attached pressure bag Normal Saline cooling irrigation was used. At initial setting of 80 ko incisions were made at the 5 and 7 o'clock position. The incisions were taken down from the bladder neck down to the area just proximal of the veru. These were gradually deepened in order to define the lateral aspects of the median lobe area and separate the lateral lobe areas from the median lobe.. The deep boundary of enucleation was defined by the prostate surgical capsule. Once clearly defined the grooves were extended in the lateral directions in order to create a deep groove and begin to undermined the lateral lobe areas.. The median lobe was then ablated and enucleated tissue released into the bladder with the laser power increased to 120 W. this was accomplished by approaching the median lobe from each lateral incision and working from lateral to medial. Once the median lobe area had been cleared, attention was directed to the lateral lobes. Starting with the patient's left lateral lobe. First the 05:00 o'clock groove was further developed. This was moved in the lateral direction to undermine the tissue on the lateral side running from the bladder neck to the prostate apex. The ureteric orifice was used to guide incisions. The laser fiber was placed at the 1 o'clock position and a secondary groove was developed down to the level of prostatic capsule. The creation of a second deep groove defined a segment of intervening tissue similar to a slice of orange. At the apex of the prostate the laser was used to vertically link the two grooves releasing the intervening tissue and creating a segment of tissue. This tissue was then removed with a combination of enucleation and ablation working from the apex toward the bladder neck. A similar procedure was repeated on the patient's right-hand side. The only differences being the position of the lateral groove at the 7 o'clock position and the secondary groove at the 11 o'clock position, Otherwise the procedure was developed in a mirror fashion. Laser power 120W After the majority of tissue had been debulked remnant tissue was ablated with the side fire laser and the curve of the prostate followed up each side wall clearly defining the anterior remnant strip that remained between the 11 and 1 o'clock positions. At completion debris and pieces of prostate were removed from the bladder with irrigation. Both ureteric orifices were reviewed again in shown to be patent in away from any areas of energy damage. Fluid was released from the prostate and inflow was ceased in order to evaluate the prostatic fossa for bleeding. The apical area was reviewed and any stray mucosal ooze was controlled. A 22 [place] African 30 cc balloon Flower catheter was placed into the bladder using a flexible stylet. Clear efflux was obtained upon irrigation with a Natalie piston syringe. 30 cc was placed in the balloon and gentle traction was placed. A snap was used to hold tension on the catheter to control bleeding during patient moved and transported. A drainage bag was placed. A belladonna and opiate suppository was placed in order to assist in postprocedure pain management. Once transportation is complete to the PACU the snap will be removed. The patient tolerated the procedure well, he was extubated in the operating and transferred in a stable condition to the recovery area. Total Power 108 kJ Lasing time 17:56 Pathology: Prostate tissue Drains: Flower catheter
[2025-02-02 16:07] VITALS: BP 125/73; PULSE 72; RESP 13; TEMP 36.7; O2SAT 95
[2025-02-02 16:12] VITALS: BP 124/71; PULSE 69; RESP 14; O2SAT 98
[2025-02-02 16:17] VITALS: BP 109/72; PULSE 69; RESP 15; O2SAT 98
[2025-02-02 16:22] VITALS: BP 109/72; PULSE 69; RESP 15; O2SAT 98
[2025-02-02 16:36] VITALS: BP 117/69; PULSE 55; RESP 12; TEMP 36.6; O2SAT 98
== END 2025-02-02 16:53 | disposition home or self-care (01) ==
PROVIDERS: PCP Physician Assistant; Visit Provider Urology
PROC: (CPT 52648; principal; 2025-02-02 15:20)
DX: N32.0 Bladder-neck obstruction (principal); N40.1 Benign prostatic hyperplasia with lower urinary tract symptoms; R39.12 Poor urinary stream; F17.290 Nicotine dependence, other tobacco product, uncomplicated; N18.9 Chronic kidney disease, unspecified; I25.810 Atherosclerosis of coronary artery bypass graft(s) without angina pectoris; Z95.5 Presence of coronary angioplasty implant and graft; I42.2 Other hypertrophic cardiomyopathy; K55.9 Vascular disorder of intestine, unspecified; E03.9 Hypothyroidism, unspecified; F31.9 Bipolar disorder, unspecified; F25.9 Schizoaffective disorder, unspecified; Z79.899 Other long term (current) drug therapy; Z79.82 Long term (current) use of aspirin; Z88.0 Allergy status to penicillin; Z88.2 Allergy status to sulfonamides; Z88.6 Allergy status to analgesic agent; Z88.8 Allergy status to other drugs, medicaments and biological substances; Z91.018 Allergy to other foods; Z90.49 Acquired absence of other specified parts of digestive tract
CPT/HCPCS: 52649; J0131; J0690; J1596; J1956; J2003; J2371; J2704; J3010

== ENCOUNTER → 2025-02-02 12:35 | Outpatient (BNV) | payer OTHER, SELFPAY | PROVIDERS: PCP Physician Assistant; Visit Provider Urology | DX: N32.0 Bladder-neck obstruction (principal) | CPT/HCPCS: 52649 ==

== ENCOUNTER 2025-02-03 09:21 | Emergency (ER) | payer OTHER, SELFPAY ==
--- OUTSIDE RECORDS SUMMARY | 2023-09-20 09:00 | XMS_ITS ---
Author Organization [facility] [place] Address [address] [place] [phone] Care Team Providers Care Cover Mat Machine Operator Name Role Phone Omid Cheung Primary Care Provider Unavailab Blaine Cummings Unavailable Neil Ny Unavailable [phone] Encounters Encounter Location Date Provider Diagnosis [facility] [address] [phone] 09/20/2023 Neil Ny Plan Of Treatment Next Appt Details Provider Name:Blaine Barker, 02/17/2025 01:00:00 PM, [address] [place], [phone], Progress Notes * Brady RUEDADOB:1965 (59 yo M)Acc No.[id number]:09/20/2023 Progress Notes Patient: Brady JOHNSTON Provider: Arti Ny DPM :1965 A ge:58 Y S ex:Male Date:09/20/2023 Address:[address] [place], [place] [id number] Pcp:Omid Cheung Subjective: * Chief Complaints: * * Medical History: Objective: * Vitals: Assessment: Plan: * Treatment: * Images: * The named appointment provid er may or may not be the originator of this progress note, and it is not deemed complete until electronically signed by the appointment provider. Sign off status: Pending * Provider: Arti Ny DPM Date: 0 09/20/2023 Generated for Angella larson/Ricky/Tomekasmitting on: 04/06/2024 12:35 PM EST
[2025-02-03 09:35] VITALS: BP 127/65; BP 140/96; PULSE 51; PULSE 91; RESP 16; TEMP 36.6; O2SAT 96; O2SAT 98; BMI 25.5
--- NOTE | 2025-02-03 11:06 | ED.GENADULT ---
HPI - General Adult General Chief complaint: General Medical Stated complaint: Green laser Prostate Surgery bleeding from site Time Seen by Provider: 02/03/25 11:03 Source: patient Mode of arrival: ambulatory Limitations: no limitations History of Present Illness ED Provider: Dr. Martinez HPI narrative: This is a 59-year-old male history of BPH, restate prostate procedure with a Li catheter in place. Patient stated that he was trying to walk when he had it issue was Li catheter. He took on a Li catheter and began to developed some hematuria. He has a bleeding around the penis urethra. The bleeding has improved with time. No abdominal tenderness. Related Data Home Medications ?Medication ?Instructions ?Recorded ?Confirmed lorazepam 1 mg tablet 1 mg PO DAILY PRN Anxiety 06/13/22 01/29/25 benztropine 0.5 mg tablet mg PO 06/18/23 01/08/25 lurasidone 20 mg tablet 40 mg PO BEDTIME 01/30/24 01/29/25 fexofenadine 180 mg tablet 180 mg PO DAILY PRN Allergy 01/08/25 01/29/25 Symptoms Previous Rx's ?Medication ?Instructions ?Recorded nitroglycerin 0.4 mg sublingual 0.4 mg sublingual Q5M #20 tabs 04/13/22 tablet aspirin 81 mg tablet,delayed 81 mg PO DAILY #90 tabs 05/29/23 release levothyroxine 25 mcg tablet 25 mcg PO DAILY 90 days #90 tabs 05/15/24 alfuzosin 10 mg tablet,extended 10 mg PO BEDTIME 90 days #90 tabs 10/08/24 release 24 hr finasteride 5 mg tablet 5 mg PO DAILY 90 days #90 tabs 12/02/24 metronidazole 1 % topical gel 1 appl topical BEDTIME 4 weeks #60 01/06/25 (Metrogel) grams Allergies Allergy/AdvReac Type Severity Reaction Status Date / Time neff (CHERRIES) Allergy Unknown digestive Verified 02/03/25 09:39 issues (only with fresh) gluten (GLUTEN) Allergy Unknown digestive Verified 02/03/25 09:39 issues ibuprofen (From MOTRIN) Allergy Unknown UNKNOWN Verified 02/03/25 09:39 mayonnaise (MAYONNAISE) Allergy Unknown digestive Verified 02/03/25 09:39 issues Penicillins (PENICILLINS) Allergy Unknown UNKNOWN Verified 02/03/25 09:39 rosuvastatin (Crestor) Allergy Unknown unknown Verified 02/03/25 09:39 soy (SOY) Allergy Unknown digestive Verified 02/03/25 09:39 issue Sulfa (Sulfonamide Allergy Unknown unknown Verified 02/03/25 09:39 Antibiotics) (SULFA (SULFONAMIDE ANTIBIOTICS)) wheat (WHEAT) Allergy Unknown digestive Verified 02/03/25 09:39 issues lamotrigine (LAMOTRIGINE) AdvReac Intermediate HEADACHES Verified 02/03/25 09:39 oxycodone (OXYCODONE) AdvReac Intermediate racing Verified 02/03/25 09:39 thoughts APPLE JUICE Allergy Unknown digestive Uncoded 02/03/25 09:39 issues fresh sridevi cherries Allergy Unknown unknown Uncoded 02/03/25 09:39 Review of Systems Review of Systems: Pertinent review of systems as mentioned in HPI. All other system otherwise negative. [facility] Past Medical History COUNTS INCLUDE 234 BEDS AT THE [facility] Narrative: Medical history as mentioned in HPI Medical History Hypothyroidism Bipolar disorder Presence of stent in LAD coronary artery Chronic kidney disease Ischemic colitis Schizoaffective disorder CAD (coronary artery disease) Surgical History S/P cardiac cath History of heart artery stent History of cholecystectomy History of appendectomy History of tonsillectomy Family History Family History Father Liver cancer Monoallelic mutation of MET gene Mother Arthritis Cancer Pacemaker Sister Parkinson disease Other Mental health disorder Social History Social History Housing: House Alcohol intake: current Alcohol intake frequency: a few times a week Alcohol type: wine Patient Tobacco Use Status: Current everyday Tobacco user Tobacco use type: Cigarette Cigarette Packs Per Day: 1 Cigarettes Per Day: 20.0 Years Smoked: 12 years Smoked in Last 30 Days: No e-Cigarette/Vaping Use: Currently Using Second Hand Smoke Exposure: Yes Use of substances other than those prescribed or required for medical reasons: No Substance Use Type: Marijuana Advance Directives: No Advance Directives Information Provided: Yes Do you have a plan to hurt others: No Plan service: No Current occupational status: employed 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 However the urine does appear to be clear in the catheter. Skin: Warm and dry Psychiatric: Appropriate mood and thoughts Vital Signs: Vital Signs - 24 hr 02/03/25 09:35 Temperature 97.9 F Pulse Rate 51 Respiratory Rate 16 Blood Pressure 127/65 Pulse Oximetry 96 Oxygen Delivery Method Room Air BMI result Body Mass Index 25.5 Medical Decision Making Medical Decision Making [facility] Narrative: This is a 59-year-old male history of recent prostate surgery with a Li catheter placed presenting to ER today for evaluation of hematuria after trauma to the Li catheter. The patient's Li catheter appears to be draining appropriately. Urine appears to have cleared up. We will plan to irrigate this Li catheter and positioned does better for the patient. Li irrigated no clot identified. Clear drainage. Patient will be discharged home. Leg bag will be provided the patient as well. Encouraged him to follow up with his urology clinic. He agrees and understands this plan. All questions were addressed. Differential Diagnosis Differential Diagnoses: The differential diagnosis associated with the presentation includes Hematuria, urinary retention, urethral trauma Discharge Plan Discharge Clinical Impression: Hematuria Qualifiers: Hematuria type: unspecified type Qualified Code(s): R31.9 - Hematuria, unspecified Patient Disposition: Home, Self-Care Instructions: Hematuria (ED) Additional Instructions: You have hematuria because of trauma with the li catheter. Please drink at least 64 ounces of fluid a day. If your li catheter is not draining return to ED. Otherwise follow up with the urology clinic. Prescriptions: No Action nitroglycerin 0.4 mg tablet, sublingual 0.4 mg sublingual Q5M Qty: 20 1RF aspirin 81 mg tablet,delayed release (DR/EC) 81 mg PO DAILY Qty: 90 3RF levothyroxine 25 mcg tablet 25 mcg PO DAILY 90 Days Qty: 90 3RF alfuzosin 10 mg tablet extended release 24 hr 10 mg PO BEDTIME 90 Days Qty: 90 1RF lorazepam 1 mg tablet 1 mg PO DAILY PRN (Reason: Anxiety) lurasidone 20 mg tablet 40 mg PO BEDTIME benztropine 0.5 mg tablet PO metronidazole [Metrogel] 1 % gel 1 appl topical BEDTIME 28 Days Qty: 60 0RF fexofenadine 180 mg tablet 180 mg PO DAILY PRN (Reason: Allergy Symptoms) finasteride 5 mg tablet 5 mg PO DAILY 90 Days Qty: 90 1RF Print Language: Thai
--- OUTSIDE RECORDS SUMMARY | 2025-02-03 12:35 | XMS_ITS | Clinical Summary ---
Author Organization [facility] it[facility] Address [address] [place] [address] Care Team Providers Care Distillery Miller Helper Name Role Phone Basil Hale MD Primary [...] age to complete this topic Care Teams Distillery Miller Helper Relationship Specialty Start Date End Date Basil Hale MD PCP - General 02/18/17
--- OUTSIDE RECORDS SUMMARY | 2025-02-03 12:35 | XMS_ITS | Patient Health Record ---
Author Organization [facility] Address [address] [place] [id number] Care Team Providers Care Cinder Pit Worker Name Role Phone Omid Cheung Primary Care Provider Unavailab Blaine Cummings Unavailable Reason For Referral No Information Plan Of Treatment Next Appt Details Provider Name:Blaine Barker, 02/17/2025 01:00:00 PM, [address] [facility], [place], [id number], Insurance Providers Payer Name Payer Address Payer Phone Subscriber Number Group Number Insured Name Patient Relationship to Insured Coverage Start Date Coverage End Date [facility] [employer] Claims [address] [place] [id number] Brady Rueda Self - patient is the insured
[2025-02-03 13:02] VITALS: BP 127/65; PULSE 51; RESP 16; TEMP 36.6; O2SAT 96
== END 2025-02-03 13:03 | disposition home or self-care (01) ==
PROVIDERS: Emergency Provider Student in an Organized Health Care Education/Training Program; PCP Physician Assistant
DX: T83.83XA Hemorrhage due to genitourinary prosthetic devices, implants and grafts, initial encounter (principal); Z98.890 Other specified postprocedural states; Z72.0 Tobacco use; N18.9 Chronic kidney disease, unspecified; Z86.79 Personal history of other diseases of the circulatory system; Z79.899 Other long term (current) drug therapy
CPT/HCPCS: 99282; 99284

== ENCOUNTER → 2025-02-05 09:52 | Outpatient (BNVA) | payer OTHER, SELFPAY | PROVIDERS: PCP Physician Assistant; Visit Provider Urology | DX: N40.1 Benign prostatic hyperplasia with lower urinary tract symptoms (principal); R33.9 Retention of urine, unspecified; R39.12 Poor urinary stream | CPT/HCPCS: 51700; 51798 ==